=== PATIENT | male | born 1930 | race African-American/Black ===

== ENCOUNTER 2016-09-25 19:44 | Inpatient (IN) | payer MEDICARE ==
[~2016-09-25] VITALS: Ht 175.3 cm; Wt 91.1 kg
[~2016-09-25 19:44] MED LIST: AMLO10TA2 PO; ASPI1TAB PO; FURO20TA2 PO; LASI40TA PO; LEVA750T PO; LISI40TAB PO; METO-209 PO; METO25TA74 PO; OMEP20CA3 PO; TRAV04OPD OU; VITMTA PO; XARE20TA PO
[2016-09-25 20:59] LABS: VENOUS BASE EXCESS -1.7 (-2.0-2.0); VENOUS O2 SATURATION 77.1 % (60.0-80.0); VENOUS PARTIAL PRESSURE CO2 46.9 mmHg (38.0-50.0); VENOUS PARTIAL PRESSURE O2 46.1 mmHg (30.0-50.0); VENOUS STANDARD HCO3 22.7 MEQ/L; VENOUS TOTAL CO2 25.8 MEQ/L (24.0-28.0)
[2016-09-25 21:03] LABS: BASO # 0.1 K/mm3 (0.0-0.2); BASO % 0.5 % (0.0-1.0); EOS # 0.1 K/mm3 (0.0-0.50); EOS % 0.2 % (0.0-3.0); LARGE UNSTAINED CELL # 0.3 K/mm3 (0.0-0.4); LARGE UNSTAINED CELL % 1.2 % (0.0-4.0); LYMPH # 0.4 K/mm3 (1.5-4.5); LYMPH % 1.4 % (24.0-44.0); MEAN CORPUSCULAR HEMOGLOBIN 30.7 pg (27.0-33.0); MEAN CORPUSCULAR HGB CONC 32.6 g/dl (32.0-36.5); MEAN CORPUSCULAR VOLUME 94.2 fl (80.0-96.0); MONO % 3.8 % (0.0-5.0); NEUTROPHILS # 25.4 K/mm3 (1.8-7.7); PLATELET COUNT, AUTOMATED 181 k/mm3 (150-450); RED CELL DISTRIBUTION WIDTH 14.4 % (11.5-14.5); WHITE BLOOD COUNT 27.3 K/mm3 (4.0-10.0)
[2016-09-25 22:07] LABS: ALBUMIN 2.9 GM/DL (3.2-5.2); ALBUMIN/GLOBULIN RATIO 0.83 (1.00-1.93); BILIRUBIN,DIRECT 0.7 MG/DL (0.0-0.2); BILIRUBIN,TOTAL 1.9 MG/DL (0.2-1.0); CALCIUM LEVEL 8.4 MG/DL (8.8-10.2); CREATININE FOR GFR 3.78 MG/DL (0.70-1.30); GLOMERULAR FILTRATION RATE 19.8 (>35); POTASSIUM SERUM 4.1 MEQ/L (3.5-5.1); TOTAL PROTEIN 6.4 GM/DL (6.4-8.2)
[2016-09-25] MEDS ORDERED: CIPROFLOXACIN/D5W 400 MG/200 ML BAG (J0744) As Ordered ONE (22:34)
[2016-09-25] MEDS ORDERED: metroNIDAZOLE/NACL 500MG(5MG/ML)100 ML BAG (S0030) As Ordered ONE (22:34)
[2016-09-25] MEDS ORDERED: FURO40TA2 PO (23:01)
[2016-09-25] MEDS ORDERED: ACET-654 PO (23:02)
[2016-09-25] MEDS ORDERED: IBUPOTC PO (23:09)
[2016-09-25] MEDS ORDERED: VITMTA PO (23:09)
[2016-09-25] MEDS ORDERED: CIPROFLOXACIN 200 MG in APPROPRIATE DILUENT 1 EA IV ONE (23:15)
[2016-09-26] VITALS (31 sets, daily range): BP systolic 77–132; BP diastolic 40–87
--- NOTE | 2016-09-26 01:05 | EDDOCDS ---
Physician Documentation [facility] Name: Les Navarro Age: 85 yrs Sex: Male : 1930 Arrival Date: 09/25/2016 Time: 19:44 Bed 1 Private MD: Bhakti Mccloud., DO Disposition: 09/25/16 22:47 Hospitalization ordered by Thai Hunt for Inpatient Admission. Preliminary diagnosis are Acute kidney failure, Hypotension, Diarrhea, unspecified - Suspect C.Diff. - Bed requested for ICU. - Status is Inpatient Admission. js15 - Condition is Stable. - Problem is an acute exacerbation. - Symptoms have improved. Historical: - Allergies: Red Dye; - Home Meds: 1. aspirin 81 mg Oral tab 1 tab once daily 2. amlodipine 10 mg Oral tab 5 mg once daily 3. lisinopril 40 mg Oral tab 1 tab once daily 4. metoprolol succinate 100 mg Tb24 1 tab once daily 5. metoprolol succinate 25 mg Tb24 1 tab once daily 6. omeprazole 20 mg Oral cpDR 1 cap once daily 7. acetaminophen 325 mg Oral tab 8. travoprost 0.004 % ophthalmic drop 1 drop nightly - PMHx: Hypertension; prostate cancer; GERD; - PSHx: Hernia repair; Knee Arthroplasty, Left; Knee Arthroplasty, Right; Prostatectomy; - Social history: Smoking status: Patient states was never smoker of tobacco. No barriers to communication noted, The patient speaks fluent Martiniquais, Speaks appropriately for age. - Family history: Not pertinent. - : The pt / caregiver states he / she is not on anticoagulants. Home medication list is obtained from family members. - Exposure Risk Screening:: None identified. Vital Signs: 09/25 19:48 BP 69 / 48; Pulse 102; Resp 18 S; Temp 95.4(T); Pulse Ox 95% on R/A; Weight 86.18 kg / gr2 189.99 lbs (R); Height 5 ft. 9 in. (175.26 cm) (R); Pain 2/10; 20:02 BP 81 / 47 (auto/); js15 20:03 Pulse 136 MON; js15 20:08 BP 90 / 49 (auto/); js15 20:08 Pulse 120 MON; js15 20:19 BP 104 / 53 (auto/); js15 20:25 Pulse 114 MON; Pulse Ox 94% ; js15 20:45 BP 87 / 54 (auto/); js15 20:45 Pulse 114 MON; Pulse Ox 95% ; js15 20:55 BP 106 / 55 (auto/); js15 20:55 Pulse 138 MON; Pulse Ox 94% ; js15 21:01 BP 87 / 54 (auto/); js15 21:01 Pulse 104 MON; Pulse Ox 88% ; js15 21:06 BP 89 / 52 (auto/); js15 21:06 Pulse 104 MON; Pulse Ox 97% ; js15 21:11 BP 94 / 52 (auto/); js15 21:11 Pulse 103 MON; Pulse Ox 90% ; js15 21:16 BP 103 / 57 (auto/); js15 21:16 Pulse 106 MON; Pulse Ox 94% ; js15 21:21 BP 108 / 56 (auto/); js15 21:21 Pulse 105 MON; Pulse Ox 97% ; js15 21:25 Pulse 112 MON; Pulse Ox 91% ; js15 21:26 BP 75 / 46 (auto/); js15 21:31 BP 87 / 52 (auto/); js15 21:31 Pulse 111 MON; Pulse Ox 98% ; js15 21:35 Pulse 107 MON; Pulse Ox 95% ; js15 21:36 BP 93 / 54 (auto/); js15 21:40 Pulse 105 MON; Pulse Ox 94% ; js15 21:41 BP 68 / 35 (auto/); js15 21:45 BP 89 / 51 (auto/); js15 21:45 Pulse 104 MON; Pulse Ox 92% ; js15 21:46 BP 101 / 60 (auto/); js15 21:46 Pulse 106 MON; Pulse Ox 92% ; js15 21:51 BP 108 / 53 (auto/); js15 21:51 Pulse 104 MON; Pulse Ox 94% ; js15 21:56 BP 114 / 58 (auto/); js15 21:56 Pulse 108 MON; Pulse Ox 96% ; js15 22:05 Pulse 104 MON; Pulse Ox 90% ; js15 22:06 BP 101 / 54 (auto/); js15 22:11 BP 106 / 56 (auto/); js15 22:11 Pulse 105 MON; Pulse Ox 90% ; js15 22:16 BP 99 / 51 (auto/); js15 22:16 Pulse 105 MON; Pulse Ox 88% ; js15 22:21 BP 91 / 53 (auto/); js15 22:21 Pulse 103 MON; Pulse Ox 96% ; js15 22:25 Pulse 103 MON; Pulse Ox 90% ; js15 22:26 BP 113 / 55 (auto/); js15 22:31 BP 92 / 53 (auto/); js15 22:31 Pulse 103 MON; Pulse Ox 69% ; js15 22:38 BP 106 / 59 (auto/); js15 22:39 Pulse 109 MON; Pulse Ox 95% ; js15 22:41 BP 115 / 58 (auto/); js15 22:41 Pulse 111 MON; Pulse Ox 94% ; js15 22:46 BP 106 / 55 (auto/); js15 22:46 Pulse 116 MON; Pulse Ox 93% ; js15 22:51 BP 119 / 68 (auto/); js15 22:51 Pulse 108 MON; Pulse Ox 95% ; js15 22:56 BP 109 / 58 (auto/); js15 22:56 Pulse 109 MON; Pulse Ox 95% ; js15 23:01 BP 108 / 55 (auto/); js15 23:01 Pulse 105 MON; Pulse Ox 95% ; js15 23:06 BP 114 / 55 (auto/); js15 23:06 Pulse 107 MON; Pulse Ox 94% ; js15 23:11 BP 106 / 55 (auto/); js15 23:11 Pulse 107 MON; Pulse Ox 96% ; js15 23:23 BP 165 / 84 (auto/); js15 23:23 Pulse 129 MON; Pulse Ox 59% ; js15 23:28 BP 154 / 74 (auto/); js15 23:28 Pulse 128 MON; Pulse Ox 84% ; js15 23:33 BP 133 / 59 (auto/); js15 23:33 Pulse 127 MON; Pulse Ox 91% ; js15 23:38 BP 91 / 56 (auto/); js15 23:38 Pulse 117 MON; Pulse Ox 90% ; js15 23:42 Pulse 117 MON; Pulse Ox 91% ; js15 23:43 BP 105 / 54 (auto/); js15 23:48 BP 97 / 52 (auto/); js15 23:48 Pulse 113 MON; Pulse Ox 92% ; js15 23:53 BP 95 / 55 (auto/); 23:53 Pulse 114 MON; Pulse Ox 93% ; 23:58 BP 91 / 53 (auto/); 23:58 Pulse 111 MON; Pulse Ox 93% ; 09/26 00:02 Pulse 114 MON; Pulse Ox 94% ; 00:03 BP 118 / 56 (auto/); 00:08 BP 94 / 51 (auto/); 00:08 Pulse 96 MON; Pulse Ox 93% ; 00:13 BP 97 / 52 (auto/); 00:13 Pulse 92 MON; Pulse Ox 93% ; 00:18 BP 105 / 55 (auto/); 00:18 Pulse 92 MON; Pulse Ox 93% ; 00:23 BP 98 / 51 (auto/); 00:23 Pulse 93 MON; Pulse Ox 94% ; 00:28 BP 96 / 50 (auto/); 00:28 Pulse 93 MON; Pulse Ox 93% ; 00:33 BP 105 / 55 (auto/); 00:33 Pulse 91 MON; Pulse Ox 93% ; 00:38 BP 98 / 51 (auto/); 00:38 Pulse 94 MON; Pulse Ox 94% ; 00:43 Temp 97.3; 00:43 BP 103 / 56 (auto/); 00:43 Pulse 92 MON; Pulse Ox 94% ; 00:48 BP 97 / 55 (auto/); 00:48 Pulse 93 MON; Pulse Ox 96% ; 00:53 BP 92 / 55 (auto/); 00:53 Pulse 91 MON; Pulse Ox 94% ; 00:58 BP 92 / 55 (auto/); 00:59 Pulse 92 MON; Pulse Ox 93% ; 09/25 19:48 Body Mass Index 28.06 (86.18 kg, 175.26 cm) gr2 MDM: 09/25 20:04 ECG WITH READING ER PHYS+CARDIAG ordered. EDMS 20:21 NS 0.9% 1000 ml IV at bolus once ordered. js15 20:24 NS 0.9% 1000 ml IV at bolus once ordered. mm11 20:24 -Blood Culture (Adults Only), peripheral from different site, or from device/port/PICC mm11 etc. if present ordered. 20:24 IV Saline Lock ordered. mm11 20:24 Undress patient appropriately for examination ordered. mm11 20:25 Amylase Ordered. EDMS 20:25 Basic Metabolic Profile Ordered. EDMS 20:25 CBC with Diff Ordered. EDMS 20:25 Cardiac Injury Profile Ordered. EDMS 20:25 Lipase Ordered. EDMS 20:25 Liver Profile Ordered. EDMS 20:25 Troponin Ordered. EDMS 20:25 Venous Blood Gas (large pea green tube on ice) Ordered. EDMS 20:25 Lactic Acid (Tineo tube on ice) Ordered. EDMS 20:25 -Blood Culture Ordered. EDMS 20:25 C Diff Toxins A&b Ordered. EDMS 20:25 Chest, 1 View Ordered. EDMS 20:25 NOTHING BY MOUTH+DIET ordered. EDMS 20:28 -Blood Culture (Adults Only), peripheral from different site, or from device/port/PICC ml3 etc. if present complete. 20:31 BLOOD CULTURES Ordered. EDMS 21:17 CBC with Diff Reviewed. mm11 21:17 Venous Blood Gas (large pea green tube on ice) Reviewed. mm11 22:00 Financial registration complete. gjb 22:22 Basic Metabolic Profile Reviewed. mm11 22:22 Cardiac Injury Profile Reviewed. mm11 22:22 Lipase Reviewed. mm11 22:22 Liver Profile Reviewed. mm11 22:22 Lactic Acid (Tineo tube on ice) Reviewed. mm11 22:22 Amylase Reviewed. mm11 22:22 Troponin Reviewed. mm11 22:24 CT ABD & PELVIS: No Contrast Ordered. EDMS 22:29 LR Solution 1000 ml IV at bolus once ordered. mm11 22:30 Ciprofloxacin 200 mg IVPB once over 1 hrs ordered. mm11 22:30 metroNIDAZOLE 500 mg IV at 100 mL/hr once over 60 mins ordered. mm11 22:30 BED REQUEST+ADM ordered. EDMS 23:12 [facility] [place] was scanned into apprupt and attached to record. [email or web address] 23:23 CBC WITH DIFFERENTIAL Ordered. EDMS 23:48 LR Solution 1000 ml IV at 250 mL/hr once ordered. mm11 09/26 00:06 Admission / Observation Status ordered. EDMS 00:10 LACTIC ACID LEVEL, LACTATE Ordered. EDMS 00:43 COMPLETE COMPHRENSIVE METABOLI Ordered. EDMS Administered Medications: 09/25 20:22 Drug: NS 0.9% 1000 ml [sodium chloride 0.9 % intravenous solution] Route: IV; Rate: js15 bolus; Site: right antecubital; 21:25 Follow up: IV Status: Completed infusion; IV Intake: 1000ml js15 21:35 Drug: NS 0.9% 1000 ml [sodium chloride 0.9 % intravenous solution] Route: IV; Rate: js15 bolus; Site: right antecubital; 22:30 Follow up: IV Status: Completed infusion; IV Intake: 1000ml js15 22:40 Drug: LR 1000 ml [lactated ringers intravenous solution] Route: IV; Rate: bolus; Site: js15 left hand; 23:30 Follow up: IV Status: Completed infusion; IV Intake: 1000ml js15 22:58 Drug: metroNIDAZOLE 500 mg [metronidazole 500 mg/100 mL-sodium chloride(iso) [facility] intravenous piggyback] Route: IV; Rate: 100 mL/hr; Infused Over: 60 mins; Site: right antecubital; 09/26 00:00 Follow up: IV Status: Completed infusion js15 00:00 Drug: LR 1000 ml [lactated ringers intravenous solution] Route: IV; Rate: 250 mL/hr; js15 Site: left hand; 01:01 Follow up: IV Status: Infusion continued upon admit js15 00:06 Not Given (Discretion of hospitalist Dr. Peralta): Ciprofloxacin 200 mg IVPB once over js15 1 hrs Signatures: Dispatcher [employer] No Self RN RN Tarik Markham, [employer] ml3 Laci Guan, DO mm11 Anny Mayorga RN RN [email or web address] Angie Ricci RN RN js15 Ruth Conte Kimberly, Reg Reg [email or web address] Eufemia Recinos RN [facility] The chart was reviewed and I authenticate all verbal orders and agree with the evaluation and treatment provided.Corrections: (The following items were deleted from the chart) 00:43 09/25 23:23 RENAL PROFILE ordered. EDWI EDMS Attachments: 23:12 [facility] Payment Agreement [email or web address] MTDD
--- NOTE | 2016-09-26 01:05 | EDDOCDS ---
Nurse's Notes [facility] Name: Les Navarro Age: 85 yrs Sex: Male : 1930 Arrival Date: 09/25/2016 Time: 19:44 Bed 1 Private MD: Bhakti Mccloud., DO Diagnosis: Acute kidney failure;Hypotension;Diarrhea, unspecified-Suspect C.Diff Presentation: 09/25 20:02 Presenting complaint: Patient states: Diarrhea times 6 days unable to eat or drink, pt sls1 is able to answer questions but unable to follow commands brought directly to bed, placed in trendelenburg. Adult Sepsis Screening: Patient has new or worsening altered mentation (1 point). Patient's respiratory rate is less than 22. Systolic blood pressure is less than or equal to 100 (1 point). Patient has a qSOFA score of 2. No known or suspected infection- Negative Sepsis Screen. Suicide/Homicide risk assessment- the patient denies having any suicidal and/or homicidal ideations and does not present with any other emotional, behavioral or mental health complaints. Status: Patient is not a body service team member or dependent. Transition of care: patient was not received from another setting of care. Red Flag criteria, patient assessed and taken directly to a bed. 20:02 Acuity: NELIDA Level 2 sls1 20:02 Method Of Arrival: Walkin/Carried/Asstd sls1 Triage Assessment: 20:15 General: Appears in no apparent distress, Behavior is appropriate for age, cooperative. js15 Pain: Denies pain. The patient is triaged at the bedside. See Assessment in Nurses Notes section of ED record. Neurological: Level of Consciousness is awake, alert, obeys commands, Oriented to person, place, time. Cardiovascular: Capillary refill < 3 seconds Rhythm is atrial fibrillation with rapid ventricular response. Respiratory: Airway is patent Respiratory effort is even, unlabored, Respiratory pattern is regular, symmetrical. GI: Reports diarrhea. Derm: Skin is intact, Skin is dry, Skin temperature is cool. Historical: - Allergies: Red Dye; - Home Meds: 1. aspirin 81 mg Oral tab 1 tab once daily 2. amlodipine 10 mg Oral tab 5 mg once daily 3. lisinopril 40 mg Oral tab 1 tab once daily 4. metoprolol succinate 100 mg Tb24 1 tab once daily 5. metoprolol succinate 25 mg Tb24 1 tab once daily 6. omeprazole 20 mg Oral cpDR 1 cap once daily 7. acetaminophen 325 mg Oral tab 8. travoprost 0.004 % ophthalmic drop 1 drop nightly - PMHx: Hypertension; prostate cancer; GERD; - PSHx: Hernia repair; Knee Arthroplasty, Left; Knee Arthroplasty, Right; Prostatectomy; - Social history: Smoking status: Patient states was never smoker of tobacco. No barriers to communication noted, The patient speaks fluent Slovak, Speaks appropriately for age. - Family history: Not pertinent. - : The pt / caregiver states he / she is not on anticoagulants. Home medication list is obtained from family members. - Exposure Risk Screening:: None identified. Screenin:24 Screening information is obtained from the patient, family members. Fall risk: At risk js15 due to age, The following interventions are performed due to a positive Fall Risk Screen: side rails upx2, bed in low position, call light in reach, family at bedside, placed in front of nurses station. Assistance ADL's: requires no assistance with activities of daily living. Abuse/DV Screen: The patient / caregiver reports he/she is: not in a situation that causes fear, pain or injury. Nutritional screening: No deficits noted. Advance Directives: Currently, there is a health care proxy, Significant other- Ann-Marie Vasquez. There is an active DNR order but there is no copy available at this time. home support is adequate. Assessment: 20:23 General: see triage note. Cardiovascular: Heart tones S1 S2 present Chest pain is js15 denied. Respiratory: Breath sounds are clear bilaterally. GI: Abdomen is non- distended Bowel sounds present X 4 quads. Abd is soft and non tender X 4 quads. 21:00 Reassessment: Patient appears in no apparent distress at this time. Pt resting on js15 stretcher in Trendelenburg , denies dizziness or pain; respirations even and unlabored; skin warm, dry. 22:00 Reassessment: Patient appears in no apparent distress at this time. Pt resting on js15 stretcher with eyes closed, respirations even and unlabored; skin warm, dry; will continue to monitor. 22:14 General: call received from Harsha in Lab reporting critical value Lactic acid 2.9. [facility] Reported to Provider and assigned nurse. 23:09 General: Appears in no apparent distress, to be sleeping. Neurological:. Respiratory: js15 Airway is patent Respiratory effort is even, unlabored, Respiratory pattern is regular, symmetrical. Derm: Skin is intact, Skin is normal. 09/26 00:14 Reassessment: Patient appears in no apparent distress at this time. Neurological: Level js15 of Consciousness is awake, alert, obeys commands, Oriented to person, place, time. Cardiovascular: Rhythm is atrial fibrillation. Respiratory: Airway is patent Respiratory effort is even, unlabored, Respiratory pattern is regular, symmetrical. Derm: Skin is intact, Skin is normal. Vital Signs: 09/25 19:48 BP 69 / 48; Pulse 102; Resp 18 S; Temp 95.4(T); Pulse Ox 95% on R/A; Weight 86.18 kg gr2 (R); Height 5 ft. 9 in. (175.26 cm) (R); Pain 10/19; 20:02 BP 81 / 47 (auto/); js15 20:03 Pulse 136 MON; js15 20:08 BP 90 / 49 (auto/); js15 20:08 Pulse 120 MON; js15 20:19 BP 104 / 53 (auto/); js15 20:25 Pulse 114 MON; Pulse Ox 94% ; js15 20:45 BP 87 / 54 (auto/); js15 20:45 Pulse 114 MON; Pulse Ox 95% ; js15 20:55 BP 106 / 55 (auto/); js15 20:55 Pulse 138 MON; Pulse Ox 94% ; js15 21:01 BP 87 / 54 (auto/); js15 21:01 Pulse 104 MON; Pulse Ox 88% ; js15 21:06 BP 89 / 52 (auto/); js15 21:06 Pulse 104 MON; Pulse Ox 97% ; js15 21:11 BP 94 / 52 (auto/); js15 21:11 Pulse 103 MON; Pulse Ox 90% ; js15 21:16 BP 103 / 57 (auto/); js15 21:16 Pulse 106 MON; Pulse Ox 94% ; js15 21:21 BP 108 / 56 (auto/); js15 21:21 Pulse 105 MON; Pulse Ox 97% ; js15 21:25 Pulse 112 MON; Pulse Ox 91% ; js15 21:26 BP 75 / 46 (auto/); js15 21:31 BP 87 / 52 (auto/); js15 21:31 Pulse 111 MON; Pulse Ox 98% ; js15 21:35 Pulse 107 MON; Pulse Ox 95% ; js15 21:36 BP 93 / 54 (auto/); js15 21:40 Pulse 105 MON; Pulse Ox 94% ; js15 21:41 BP 68 / 35 (auto/); js15 21:45 BP 89 / 51 (auto/); js15 21:45 Pulse 104 MON; Pulse Ox 92% ; js15 21:46 BP 101 / 60 (auto/); js15 21:46 Pulse 106 MON; Pulse Ox 92% ; js15 21:51 BP 108 / 53 (auto/); js15 21:51 Pulse 104 MON; Pulse Ox 94% ; js15 21:56 BP 114 / 58 (auto/); js15 21:56 Pulse 108 MON; Pulse Ox 96% ; js15 22:05 Pulse 104 MON; Pulse Ox 90% ; js15 22:06 BP 101 / 54 (auto/); js15 22:11 BP 106 / 56 (auto/); js15 22:11 Pulse 105 MON; Pulse Ox 90% ; js15 22:16 BP 99 / 51 (auto/); js15 22:16 Pulse 105 MON; Pulse Ox 88% ; js15 22:21 BP 91 / 53 (auto/); js15 22:21 Pulse 103 MON; Pulse Ox 96% ; js15 22:25 Pulse 103 MON; Pulse Ox 90% ; js15 22:26 BP 113 / 55 (auto/); js15 22:31 BP 92 / 53 (auto/); js15 22:31 Pulse 103 MON; Pulse Ox 69% ; js15 22:38 BP 106 / 59 (auto/); js15 22:39 Pulse 109 MON; Pulse Ox 95% ; js15 22:41 BP 115 / 58 (auto/); js15 22:41 Pulse 111 MON; Pulse Ox 94% ; js15 22:46 BP 106 / 55 (auto/); js15 22:46 Pulse 116 MON; Pulse Ox 93% ; js15 22:51 BP 119 / 68 (auto/); js15 22:51 Pulse 108 MON; Pulse Ox 95% ; js15 22:56 BP 109 / 58 (auto/); js15 22:56 Pulse 109 MON; Pulse Ox 95% ; js15 23:01 BP 108 / 55 (auto/); 15 23:01 Pulse 105 MON; Pulse Ox 95% ; js15 23:06 BP 114 / 55 (auto/); 15 23:06 Pulse 107 MON; Pulse Ox 94% ; js15 23:11 BP 106 / 55 (auto/); js15 23:11 Pulse 107 MON; Pulse Ox 96% ; js15 23:23 BP 165 / 84 (auto/); js15 23:23 Pulse 129 MON; Pulse Ox 59% ; js15 23:28 BP 154 / 74 (auto/); 15 23:28 Pulse 128 MON; Pulse Ox 84% ; js15 23:33 BP 133 / 59 (auto/); 15 23:33 Pulse 127 MON; Pulse Ox 91% ; 15 23:38 BP 91 / 56 (auto/); 15 23:38 Pulse 117 MON; Pulse Ox 90% ; 15 23:42 Pulse 117 MON; Pulse Ox 91% ; 15 23:43 BP 105 / 54 (auto/); 15 23:48 BP 97 / 52 (auto/); 15 23:48 Pulse 113 MON; Pulse Ox 92% ; 15 23:53 BP 95 / 55 (auto/); 15 23:53 Pulse 114 MON; Pulse Ox 93% ; 15 23:58 BP 91 / 53 (auto/); 15 23:58 Pulse 111 MON; Pulse Ox 93% ; 09/26 00:02 Pulse 114 MON; Pulse Ox 94% ; 15 00:03 BP 118 / 56 (auto/); 15 00:08 BP 94 / 51 (auto/); 00:08 Pulse 96 MON; Pulse Ox 93% ; 15 00:13 BP 97 / 52 (auto/); 00:13 Pulse 92 MON; Pulse Ox 93% ; 15 00:18 BP 105 / 55 (auto/); 15 00:18 Pulse 92 MON; Pulse Ox 93% ; 00:23 BP 98 / 51 (auto/); 15 00:23 Pulse 93 MON; Pulse Ox 94% ; 15 00:28 BP 96 / 50 (auto/); 15 00:28 Pulse 93 MON; Pulse Ox 93% ; 15 00:33 BP 105 / 55 (auto/); 15 00:33 Pulse 91 MON; Pulse Ox 93% ; js15 00:38 BP 98 / 51 (auto/); js15 00:38 Pulse 94 MON; Pulse Ox 94% ; js15 00:43 Temp 97.3; js15 00:43 BP 103 / 56 (auto/); js15 00:43 Pulse 92 MON; Pulse Ox 94% ; js15 00:48 BP 97 / 55 (auto/); js15 00:48 Pulse 93 MON; Pulse Ox 96% ; js15 00:53 BP 92 / 55 (auto/); js15 00:53 Pulse 91 MON; Pulse Ox 94% ; js15 00:58 BP 92 / 55 (auto/); js15 00:59 Pulse 92 MON; Pulse Ox 93% ; js15 09/25 19:48 Body Mass Index 28.06 (86.18 kg, 175.26 cm) gr2 Vitals: 09/25 19:48 Log In Time: September 25, 2016 at 19:48. RN notified that patient meets Red Flag gr2 criteria. ED Course: 19:47 Patient visited by Abimael Boucher. gr2 19:47 Bhakti Mccloud. is Private Physician. gr2 19:47 Patient moved to Waiting gr2 19:54 Patient visited by Abimael Boucher. gr2 19:54 Patient moved to 6 mb9 19:54 Patient moved to Pre RCE gr2 19:54 Patient moved to 6 mb9 19:55 Patient visited by Abimael Boucher. gr2 20:03 Triage Initiated sls1 20:08 Patient moved to Sep 20:09 Patient visited by Michelle Wagner PCA. ar3 20:09 EKG done. (by ED staff). Reviewed by Laci Guan DO. ar3 20:14 Laci Guan DO is Attending Physician. mm11 20:14 Patient visited by Laci Guan DO. mm11 20:23 Patient visited by Laci Guan DO. mm11 20:26 The patient / caregiver is instructed regarding the plan of care and ED course. js15 Accompanied by Significant Other, Patient has correct armband on for positive identification. Placed in gown. Bed in low position. Call light in reach. Side rails up X2. Adult w/ patient. monitor technician on. Pulse ox on. NIBP on. Warm blanket given. 20:27 Inserted saline lock: 18 gauge in right antecubital area The patient tolerated the js15 procedure well. inserted by A Sarah LINDSEY. 20:31 Lactic Acid (Tieno tube on ice) Sent. js15 20:31 Amylase Sent. js15 20:31 Basic Metabolic Profile Sent. js15 20:31 CBC with Diff Sent. js15 20:31 Cardiac Injury Profile Sent. js15 20:31 Lipase Sent. js15 20:31 Liver Profile Sent. js15 20:31 Troponin Sent. js15 20:44 BLOOD CULTURES Sent. js15 20:44 Venous Blood Gas (large pea green tube on ice) Sent. js15 20:44 -Blood Culture Sent. js15 21:27 Patient visited by Tina Beatty PCA. williams 22:27 Patient visited by Angie Ricci RN. js15 22:35 Inserted saline lock: 20 gauge in left hand The patient tolerated the procedure well. js15 22:46 Thai Hunt MD is Hospitalizing Provider. mm 23:12 [facility] Payment Agreement was scanned into [employer] and attached to record. ks16 09/26 00:15 CT ABD & PELVIS: No Contrast Returned. EDMS 00:37 No procedures done that require assistance. js15 Administered Medications: 09/25 20:22 Drug: NS 0.9% 1000 ml [sodium chloride 0.9 % intravenous solution] Route: IV; Rate: js15 bolus; Site: right antecubital; 21:25 Follow up: IV Status: Completed infusion; IV Intake: 1000ml js15 21:35 Drug: NS 0.9% 1000 ml [sodium chloride 0.9 % intravenous solution] Route: IV; Rate: js15 bolus; Site: right antecubital; 22:30 Follow up: IV Status: Completed infusion; IV Intake: 1000ml js15 22:40 Drug: LR 1000 ml [lactated ringers intravenous solution] Route: IV; Rate: bolus; Site: js15 left hand; 23:30 Follow up: IV Status: Completed infusion; IV Intake: 1000ml js15 22:58 Drug: metroNIDAZOLE 500 mg [metronidazole 500 mg/100 mL-sodium chloride(iso) cjh intravenous piggyback] Route: IV; Rate: 100 mL/hr; Infused Over: 60 mins; Site: right antecubital; 09/26 00:00 Follow up: IV Status: Completed infusion 00:00 Drug: LR 1000 ml [lactated ringers intravenous solution] Route: IV; Rate: 250 mL/hr; Site: left hand; 01:01 Follow up: IV Status: Infusion continued upon admit 00:06 Not Given (Discretion of hospitalist Dr. Peralta): Ciprofloxacin 200 mg IVPB once over 1 hrs Intake: 09/25 21:25 IV: 1000.00ml; Total: 1000.00ml. 22:30 IV: 1000.00ml; Total: 2000.00ml. 23:30 IV: 1000.00ml; Total: 3000.00ml. Order Results: Lab Order: Amylase; SPEC'M 09/25/16 20:39 Test: AMYLASE; Value: 45; Range: 25-115; Units: U/L; Status: F Lab Order: Basic Metabolic Profile; SPEC'M 09/25/16 20:39 Test: GLUCOSE, FASTING; Value: 135; Range: 83-110; Abnormal: Above high normal; Units: MG/DL; Status: F Test: BLOOD UREA NITROGEN; Value: 49; Range: 7-18; Abnormal: Above high normal; Units: MG/DL; Status: F Test: CREATININE FOR GFR; Value: 3.78; Range: 0.70-1.30; Abnormal: Above high normal; Units: MG/DL; Status: F Test: GLOMERULAR FILTRATION RATE; Value: 19.8; Range: >35; Abnormal: Below low normal; Status: F Test: SODIUM LEVEL; Value: 144; Range: 136-145; Units: MEQ/L; Status: F Test: POTASSIUM SERUM; Value: 4.1; Range: 3.5-5.1; Units: MEQ/L; Status: F Test: CHLORIDE LEVEL; Value: 105; Range: 98-107; Units: MEQ/L; Status: F Test: CARBON DIOXIDE LEVEL; Value: 24; Range: 21-32; Units: MEQ/L; Status: F Test: ANION GAP; Value: 15; Range: 8-16; Units: MEQ/L; Status: F Test: CALCIUM LEVEL; Value: 8.4; Range: 8.8-10.2; Abnormal: Below low normal; Units: MG/DL; Status: F Test Note: ; Units are mL/min/1.73 m2 Chronic Kidney Disease Staging per NKF: Stage I & II GFR >=60 Normal to Mildly Decreased Stage III GFR 30-59 Moderately Decreased Stage IV GFR 15-29 Severely Decreased Stage V GFR <15 Very Little GFR Left ESRD GFR <15 on ROUGHER OPERATOR Lab Order: CBC with Diff; [facility] 09/25/16 20:39 Test: WHITE BLOOD COUNT; Value: 27.3; Range: 4.0-10.0; Abnormal: Above high normal; Units: K/mm3; Status: F Test: RED BLOOD COUNT; Value: 3.37; Range: 4.30-6.10; Abnormal: Below low normal; Units: M/mm3; Status: F Test: HEMOGLOBIN; Value: 10.4; Range: 14.0-18.0; Abnormal: Below low normal; Units: g/dl; Status: F Test: HEMATOCRIT; Value: 31.8; Range: 42.0-52.0; Abnormal: Below low normal; Units: %; Status: F Test: MEAN CORPUSCULAR VOLUME; Value: 94.2; Range: 80.0-96.0; Units: fl; Status: F Test: MEAN CORPUSCULAR HEMOGLOBIN; Value: 30.7; Range: 27.0-33.0; Units: pg; Status: F Test: MEAN CORPUSCULAR HGB CONC; Value: 32.6; Range: 32.0-36.5; Units: g/dl; Status: F Test: RED CELL DISTRIBUTION WIDTH; Value: 14.4; Range: 11.5-14.5; Units: %; Status: F Test: PLATELET COUNT, AUTOMATED; Value: 181; Range: 150-450; Units: k/mm3; Status: F Test: NEUTROPHILS %; Value: 93.0; Range: 36.0-66.0; Abnormal: Above high normal; Units: %; Status: F Test: LYMPH %; Value: 1.4; Range: 24.0-44.0; Abnormal: Below low normal; Units: %; Status: F Test: MONO %; Value: 3.8; Range: 0.0-5.0; Units: %; Status: F Test: EOS %; Value: 0.2; Range: 0.0-3.0; Units: %; Status: F Test: BASO %; Value: 0.5; Range: 0.0-1.0; Units: %; Status: F Test: LARGE UNSTAINED CELL %; Value: 1.2; Range: 0.0-4.0; Units: %; Status: F Test: NEUTROPHILS #; Value: 25.4; Range: 1.8-7.7; Abnormal: Above high normal; Units: K/mm3; Status: F Test: LYMPH #; Value: 0.4; Range: 1.5-4.5; Abnormal: Below low normal; Units: K/mm3; Status: F Test: MONO #; Value: 1.0; Range: 0.0-0.8; Abnormal: Above high normal; Units: K/mm3; Status: F Test: EOS #; Value: 0.1; Range: 0.0-0.50; Units: K/mm3; Status: F Test: BASO #; Value: 0.1; Range: 0.0-0.2; Units: K/mm3; Status: F Test: LARGE UNSTAINED CELL #; Value: 0.3; Range: 0.0-0.4; Units: K/mm3; Status: F Lab Order: Cardiac Injury Profile; [facility] 09/25/16 20:39 Test: CPK CREATINE PHOSPHOKINASE; Value: 227; Range: 39-308; Units: U/L; Status: F Test: CK-MB VALUE MASS; Value: 8.8; Range: 0.0-3.6; Abnormal: Above high normal; Units: NG/ML; Status: F Test: MB/CK RELATIVE INDEX; Value: 3.87; Range: < OR =4; Status: F Test Note: ; DIAGNOSIS CRITERIA MMB ng/ml Relative Index (RI) NON-AMI < or = 5 N/A TINEO ZONE > 5 < or = 4 AMI > 5 > 4 Lab Order: Lipase; [facility] 09/25/16 20:39 Test: LIPASE; Value: 49; Range: 73-393; Abnormal: Below low normal; Units: U/L; Status: F Lab Order: Liver Profile; [facility] 09/25/16 20:39 Test: AST/SGOT; Value: 49; Range: 15-37; Abnormal: Above high normal; Units: U/L; Status: F Test: ALT/SGPT; Value: 35; Range: 12-78; Units: U/L; Status: F Test: ALKALINE PHOSPHATASE; Value: 119; Range: 45-117; Abnormal: Above high normal; Units: U/L; Status: F Test: BILIRUBIN,TOTAL; Value: 1.9; Range: 0.2-1.0; Abnormal: Above high normal; Units: MG/DL; Status: F Test: BILIRUBIN,DIRECT; Value: 0.7; Range: 0.0-0.2; Abnormal: Above high normal; Units: MG/DL; Status: F Test: TOTAL PROTEIN; Value: 6.4; Range: 6.4-8.2; Units: GM/DL; Status: F Test: ALBUMIN; Value: 2.9; Range: 3.2-5.2; Abnormal: Below low normal; Units: GM/DL; Status: F Test: ALBUMIN/GLOBULIN RATIO; Value: 0.83; Range: 1.00-1.93; Abnormal: Below low normal; Status: F Lab Order: Troponin; SPEC'M 09/25/16 20:39 Test: TROPONIN I; Value: 0.05; Range: < 0.10; Units: NG/ML; Status: F Test Note: ; Troponin I Reference Interval for Lexdir LOCI: 99th Percentile= 0.00-0.045 ng/ml Risk Stratification: <= 0.10 ng/ml Decreased Risk for Adverse Clinical Events. 0.10-1.50 ng/ml Increased Risk for Adverse Clinical Events. Evaluation of additional criterion and/or repeat testing in 2-6 hours is suggested to rule out myocardial damage. >= 1.50 ng/ml Indicative of Myocardial Injury. Lab Order: Venous Blood Gas (large pea green tube on ice); SPEC'M 09/25/16 20:39 Test: VENOUS PH; Value: 7.333; Range: 7.330-7.430; Units: UNITS; Status: F Test: VENOUS PARTIAL PRESSURE CO2; Value: 46.9; Range: 38.0-50.0; Units: mmHg; Status: F Test: VENOUS PARTIAL PRESSURE O2; Value: 46.1; Range: 30.0-50.0; Units: mmHg; Status: F Test: VENOUS TOTAL CO2; Value: 25.8; Range: 24.0-28.0; Units: MEQ/L; Status: F Test: VENOUS HCO3; Value: 24.3; Range: 23.0-27.0; Units: MEQ/L; Status: F Test: VENOUS BASE EXCESS; Value: -1.7; Range: -2.0-2.0; Status: F Test: VENOUS STANDARD HCO3; Value: 22.7; Units: MEQ/L; Status: F Test: VENOUS O2 SATURATION; Value: 77.1; Range: 60.0-80.0; Units: %; Status: F Lab Order: Lactic Acid (Tineo tube on ice); SPEC'M 09/25/16 00:00 Test: LACTIC ACID LEVEL, LACTATE; Value: 2.9; Range: 0.4-2.0; Abnormal: Above upper panic limits; Units: MMOL/L; Status: F Radiology Order: CT ABD & PELVIS: No Contrast Test: CT ABD & PELVIS: No Contrast REASON FOR EXAMINATION: Abdomen Pain; ; CT of the abdomen and pelvis without contrast; Clinical statement: Pain.; Technique: Multiple axial CT images were obtained from the base of the lungs to the floor of the pelv; is utilizing 5 mm axial slices without administration of contrast. Coronal and sagittal reconstructio; ns were also obtained.; No comparison is available.; Findings:; Chest: There are extensive bilateral lower lobe infiltrates along with pleural plaques and calcificat; ions.; Abdomen: The kidneys are normal in size bilaterally. There is no evidence of hydronephrosis or nephro; lithiasis. The liver, spleen, pancreas, gallbladder and adrenal glands are unremarkable. The aorta de; monstrates normal caliber and contour. There is no abdominal lymphadenopathy or ascites.; Pelvis: There is diffuse bowel wall thickening involving the majority of the colon. Mild surrounding; inflammatory changes are seen. There is no evidence of obstruction. The urinary bladder is within nor; mal limits. There is no pelvic lymphadenopathy or ascites. The other pelvic structures appear unremar; kable.; Bones: There are no suspicious osseous abnormalities seen. Severe multilevel degenerative disc diseas; e with osteophytic changes are noted throughout the lumbar spine.; Impression:; 1. Findings consistent with pancolitis, likely infectious but possibly inflammatory in nature. No delphine; dence of bowel obstruction.; 2. No obstructive or inflammatory bowel changes.; 3. Extensive bilateral lower lobe infiltrates. Chronic pleural plaques calcifications are also noted.; ; 4. Severe spondylosis of the spine.; ; Outcome: 22:47 Decision to Hospitalize by Provider. mm11 09/26 00:38 Discharge Assessment: Patient awake, alert and oriented x 3. No cognitive and/or js15 functional deficits noted. Patient verbalized understanding of disposition instructions. patient administered narcotics - no. The following High Risk Discharge criteria are identified: None. Admitted to ICU accompanied by nurse, accompanied by tech, family with patient, via stretcher, with oxygen, on monitor, with chart. Condition: unchanged. CT Study completed. Property :Personal belongings accompany Pt. 01:00 Admission hand-off: Report called to Lachelle LINDSEY. js15 01:04 Patient left the ED. js15 Signatures: Dispatcher [employer] EDMS No Thomas, RN RN Laci Villarreal DO DO mm11 Michelle Wagner, ELECTRIC MOTOR CONTROLS ASSEMBLER ELECTRIC MOTOR CONTROLS ASSEMBLER ar3 Tina Beatty, ELECTRIC MOTOR CONTROLS ASSEMBLER ELECTRIC MOTOR CONTROLS ASSEMBLER williams Anny Mayorga, RN RN sls1 Eufemia Recinos,RN RN [facility] Abimael Boucher gr2 Eyad Harley,RN RN mb9 Angie RicciRN RN js15 Faith Raphael, Reg Reg ks16 Corrections: (The following items were deleted from the chart) 09/25 22:41 22:40 LR Solution 1000 ml IV at bolus in left forearm js15 js15 MTDD
[2016-09-26] MEDS ORDERED: NS 500 ML IV SCH (02:00)
[2016-09-26] MEDS ORDERED: LR 1,000 ML IV SCH (02:15)
--- NOTE | 2016-09-26 02:27 | HPE ---
DATE OF ADMISSION: 09/26/2016 PRIMARY CARE PROVIDER[facility] and Dr. Cali CODE STATUS: Full. CHIEF COMPLAINT: Diarrhea, unable to eat and drink, and increased confusion. HISTORY OF PRESENT ILLNESS: Mr. Navarro is an 85-year-old male with past medical history of severe pulmonary hypertension, diastolic heart failure, obstructive sleep apnea (ELBA) not on continuous positive airway pressure (CPAP), restrictive lung disease who presented to the ED complaining of worsening diarrhea. Episode started six days ago. Has been averaging approximately 3-4 episodes a day. Mostly loose, watery stool at times with mucus contents. No melena or hematochezia. History is somewhat unclear regarding his recent antibiotic use. Patient was recently hospitalized from 08/03 to 08/08/2016 for respiratory failure secondary to congestive heart failure (CHF) exacerbation and community-acquired pneumonia. At that time, he was treated with Rocephin and azithromycin, and states that since discharge he had been doing relatively well. However, he states that he finished some antibiotics two weeks ago for unclear reasons. Denies abdominal pain, fevers, chills, night sweats, shortness of breath, palpitations, chest pain, dizziness, lightheadedness or cough. Reports poor appetite in the last week and partner noticed him to be more unsteady on his feet today. Despite not eating, he continued to take all his medications up until today, including all of his antihypertensive agents. Denies prior history of Clostridium difficile (C. diff) infection. In the emergency department (ED), was given so far a total of 3250 IV fluid both normal saline and Lactated Ringers and was started on Flagyl IV. PAST MEDICAL HISTORY: 1. Chronic hypoxic respiratory failure. 2. Severe pulmonary hypertension. Echocardiogram from July 2016 showed right ventricular systolic pressure of 71. 3. Obstructive sleep apnea, not on CPAP. 4. Diastolic heart failure. Ejection fraction of 60% from echocardiogram July 2016. 5. Prostate cancer status post surgery and radiation. 6. Restrictive lung disease. 7. Nocturnal hypoxemia. 8. Gastroesophageal reflux disease (GERD). 9. Atrial fibrillation, currently not on anticoagulation. At his last discharge here, he was sent home with Xarelto; however, this [facility] as they claimed it was not working. 10. Diverticulosis. 11. Spinal stenosis. 12. Claudication. 13. Chronic back pain. 14. Anemia. 15. Glaucoma. PAST SURGICAL HISTORY: 1. Prostatectomy. 2. Bilateral knee replacement. 3. Bilateral inguinal hernia repair. 4. Bilateral cataract repair. ALLERGIES: CONTRAST MEDIA, RED DYE (rash). No known drug allergies. HOME MEDICATIONS: - Tylenol 325 mg every four hours as needed - Norvasc 10 mg by mouth daily - aspirin 81 mg by mouth daily - Lasix 40 mg by mouth daily - ibuprofen 200 mg every six hours as needed - lisinopril 40 mg by mouth daily - Toprol XL total dose is 125 mg by mouth daily - multivitamin - Travatan OU by mouth at bedtime FAMILY HISTORY: Mother from heart disease. Father from lung disease. SOCIAL HISTORY: Patient is a lifetime nonsmoker. No alcohol or drug use. He is a retired police investigator. Currently lives at home with his female partner. No pets. Lifetime travel includes to [place] and [place]. He did work in a [employer] which he states left him having pulmonary disease. REVIEW OF SYSTEMS: CONSTITUTIONAL: Denies fevers, chills, rigors, weight changes. Positive for decreased appetite and fatigue. HEENT: Denies headaches, lightheadedness, dizziness, blurry vision, difficulty with speech and swallow. He was more unsteady on his feet. CARDIOVASCULAR: Positive for chronic bilateral lower extremity edema and on Lasix chronically. Denies chest pain, paroxysmal nocturnal dyspnea, pillow orthopnea. PULMONARY: Denies shortness of breath, productive cough, hemoptysis. GASTROINTESTINAL: Positive diarrhea as mentioned above. No nausea, vomiting, abdominal pain, hematemesis, melena, or hematochezia. GENITOURINARY: There has not been any complaint of decreased urination and no hematuria. Has history of prostate cancer. MUSCULOSKELETAL: Has history of chronic back pain. No bone, joint pain. NEUROLOGICAL: No paralysis, paresthesia, headaches. Was confused earlier. ENDOCRINE: Negative for diabetes, or thyroid disease. LYMPHATICS: No lumps, bumps, or swelling anywhere in neck, axilla, or groin. ONCOLOGY: Positive for history of prostate cancer status post radiation and surgery. HEMATOLOGY: No abnormal bleeding or bruising. PHYSICAL EXAMINATION: VITAL SIGNS: Blood pressure on initial presentation was 69/48, which increased to 114/58. Heart rate fluctuated around 102-136. Respiratory rate 18, temperature 95.4, pulse oximetry 95% on room air. However, he had episodes of hypoxia during examination down to mid 80s. Currently is in the low 90s on four liters nasal cannula. Body mass index (BMI) 28. GENERAL: Patient was lying in bed approximately at a 30 degree angle, comfortable, but chronically ill appearing, appears stated age and partner at the bedside. Answers questions in complete sentences without respiratory distress. HEENT: Normocephalic, atraumatic. Moist oral mucosa. NECK: Supple. Large neck. No jugular venous distention (JVD). Trachea midline. CHEST: Symmetric chest rise. No accessory muscle use. Breath sounds were diminished bilateral lung bases. No crackles appreciated. HEART: Irregular, tachycardic, variable S1, S2 present. Difficult to appreciate any murmurs, rubs, or gallops. ABDOMEN: Soft, nontender, nondistended. Bowel sounds present. Hyperactive. No guarding. No rebound. No peritoneal signs. EXTREMITIES: 2+ pitting edema bilateral lower extremities, which reportedly is chronic for him. NEUROLOGICAL: He is currently awake, oriented times three however he was noticed to be more confused when he first presented. Sensory intact. No focal deficits appreciated at this time. LABORATORY DATA: WBC 27.3, hemoglobin 10.4, hematocrit 31.8, which appears to be his baseline, platelets 181, neutrophils 93. Sodium 144, potassium 4.1, chloride 105, carbon dioxide 24, BUN 49, creatinine 3.78, which is significant when compared to his baseline. Fasting glucose 135, lactic acid 2.9, calcium 8.4, total bilirubin 1.9, direct bilirubin 0.7, AST 49, ALT 35, alcohol is 119, amylase 49, lipase 45. IMAGING: Chest x-ray: Cardiomegaly, extensive bilateral opacity which was present in prior chest x-ray. EKG showed atrial fibrillation with rate of 119. IMPRESSION AND PLAN: Mr. Navarro is an 85-year-old male with past medical history of severe pulmonary hypertension, restrictive pulmonary disease and congestive heart failure (CHF), who presented to the emergency department tonight with worsening diarrhea. 1. Sepsis. He was initially confused. Systolic blood pressure less than 100. So far, he has received 3,250 boluses. His blood pressure did improve with IV fluid hydration. Likely source is GI. Unfortunately, due to history of CHF, will be cautious regarding aggressive hydration. Will continue to monitor him closely in the intensive care unit (ICU). Repeat lactic acid level. Followup stool for Clostridium difficile. In the setting of his recent antibiotic use, C. diff colitis is highly likely. Because of his current septic state, the patient will be started on IV Flagyl and oral vancomycin. Flagyl can be discontinued once he is no longer septic. 2. Congestive heart failure (CHF). Diastolic. Currently is compensated. Because of septic state and risk for septic shock, diuretics will be held for now. However, continue to monitor respiratory status closely. 3. Atrial fibrillation. Rate was initially fast and may be worsened due to his current infection. Xarelto was discontinued by the [facility], reason for this is unclear. Continue to monitor him closely. Hopefully, rate will improve with hydration. He cannot be on any rate controlling agent at this time due to his hypotension, and cannot be on digoxin due to his worsening renal function. 4. Acute renal failure. Secondary to current infection. Continue to monitor, hopefully this will also improve with IV hydration. Repeat labs in the morning. 5. Severe pulmonary hypertension. Continue oxygen supplementation, IV hydration as mentioned above due to his current septic state. 6. History of obstructive sleep apnea (ELBA). Unfortunately, is not being treated with continuous positive airway pressure (CPAP). He has a history of noncompliance in the past. 7. Deep vein thrombosis (DVT) prophylaxis. Sequential compression devices (SCDs) and thromboembolic devices (TEDS) and heparin. DISPOSITION: Due to patient's critical condition, we expect his stay to be greater than two midnights. CODE STATUS: Patient states he still has forty years left in him. He is a FULL CODE. I have both independently examined this patient as well as reviewed the dictated note. I have discussed in detail with the resident the findings and plan of treatment as documented in the residents note. I will continue to follow the patient and offer further guidance to the patients care as necessary during this hospital stay. JOSE
[2016-09-26] MEDS: LATANOPROST 0.005% OPHTH SOLN 2.5 ML OU SCH ×2 (03:02→21:12)
[2016-09-26] MEDS: VANCOMYCIN ORAL SOL 250MG/5ML ORAL SYRINGE PO SCH ×5 (03:02→23:31)
[2016-09-26 05:19] LABS: MEAN CORPUSCULAR HGB CONC 31.1 g/dl (32.0-36.5); MEAN CORPUSCULAR VOLUME 96.4 fl (80.0-96.0); PLATELET COUNT, AUTOMATED 163 k/mm3 (150-450); RED CELL DISTRIBUTION WIDTH 14.4 % (11.5-14.5); WHITE BLOOD COUNT 27.8 K/mm3 (4.0-10.0)
[2016-09-26 05:35] LABS: ALBUMIN/GLOBULIN RATIO 0.76 (1.00-1.93); BILIRUBIN,TOTAL 1.1 MG/DL (0.2-1.0); CALCIUM LEVEL 7.4 MG/DL (8.8-10.2); CREATININE FOR GFR 3.51 MG/DL (0.70-1.30); GLOMERULAR FILTRATION RATE 21.5 (>35); POTASSIUM SERUM 4.3 MEQ/L (3.5-5.1)
[2016-09-26 05:51] LABS: ALBUMIN 2.2 GM/DL (3.2-5.2)
[2016-09-26 05:52] LABS: TOTAL PROTEIN 5.1 GM/DL (6.4-8.2)
[2016-09-26] MEDS: metroNIDAZOLE 500 MG in APPROPRIATE DILUENT 1 EA IV SCH ×3 (06:29→21:12)
[2016-09-26] MEDS: HEPARIN SOD (PORCINE) 5000 UNITS/ML VIAL SQ SCH ×3 (06:29→21:12)
[2016-09-26 07:32] LABS: BANDS 11 % (< 11)
[2016-09-26 07:34] LABS: HYPOCHROMASIA 1+
[2016-09-26 07:35] LABS: BURR CELLS 3+
[2016-09-26 07:36] LABS: TOXIC VACUOLATION 1+
[2016-09-26] MEDS: LACTOBACILLUS ACIDOPHILUS CAP (BACID) PO SCH ×4 (08:00→17:42)
--- NOTE | 2016-09-26 08:05 | ECGEPIP ---
Stationary ECG Study [facility] - ED Test Date: 2016-09-25 Pat Name: WILIAM RIVAS Department: Room: [place] [address] Gender: M Legal Mediator: carolyn : [id number] Requested By: CHAD Rehman Order Number: [id number] Reading MD: Ching Guzmán Measurements Intervals [place] Rate: 119 P: DE: 0 QRS: -3 QRSD: 80 T: 78 QT: 303 QTc: 428 Interpretive Statements ATRIAL FIBRILLATION WITH RAPID VENTRICULAR RESPONSE NONSPECIFIC T-WAVE ABNORMALITY ABNORMAL RHYTHM ECG INCREASED RATE 08/05/16 Electronically Signed On 09-26-2016 8:05:13 EST by Ching Guzmán
--- NOTE | 2016-09-26 08:47 | REP ---
Portable chest x-ray: AP semi-erect view. History: Abdominal pain. Comparison chest x-ray August 03, 2016. Findings: There is heavy calcific pleural plaquing again noted bilaterally. Cardiomegaly is observed unchanged. EKG electrodes are seen. Pulmonary vasculature appears somewhat cephalized. No definite infiltrate is seen. Impression: Extensive calcific pleural plaquing. Cardiomegaly. No definite infiltrate. Signed by Erasto Ivan MD 09/26/2016 08:04 P
--- NOTE | 2016-09-26 08:56 | IPN ---
DATE OF VISIT: 09/26/2016 SUBJECTIVE: Patient seen and examined in the room today. Patient is still complaining about continuous diarrhea and his rectum has become very sore from the frequent bowel movements. Denies any fevers or chills. The patient stated his diarrhea has been going on for the past one week and is getting worse. The patient also noted that he has increased difficulty breathing and required increased oxygen demands. OBJECTIVE: VITAL SIGNS: Temperature 96.7, pulse 88, respirations 18, blood pressure 121/55, pulse oximetry 97% with 5 liters nasal cannula. GENERAL: Fatigued. No acute distress. Alert and oriented times three. HEENT: Normocephalic, atraumatic. Extraocular motors grossly intact. CARDIOVASCULAR: Positive systolic murmur in the second intercostal space. Irregularly irregular, heart rate around 85. PULMONARY: Positive crackles in the bilateral basilar area. No wheezes appreciated. ABDOMEN: Morbidly obese. Soft, nontender, nondistended. Bowel sounds present. EXTREMITIES: 2+ pitting edema bilaterally. LABORATORY DATA: WBC is 27.8, hemoglobin 9.2, hematocrit 29.7, platelet count is 163. Sodium is 144, potassium 4.3, chloride is 111, carbon dioxide 22, BUN is 53, creatinine is 3.51, GFR is 21.5, fasting glucose 122, calcium 7.4, total bilirubin is 1.1, AST 36, ALT is 26, alkaline phosphatase 99, total protein is 5.1, albumin 2.2. Stool C. difficile PCR is positive. ASSESSMENT/PLAN: 1. Septic shock secondary to C. Difficile. Currently the patient has received multiple liters of IV bolus during the admission. Currently the fluid is running at 100 mL per hour. Initially the patient had a systolic blood pressure of 60 during admission. Now the systolic blood pressure is maintained at 105 with a MAP of around 68. The patient will have IV fluid running at 80 mL/h. The patient is currently receiving oral vancomycin and IV Flagyl. 2. C. difficile colitis. The patient had a recent hospitalization for pneumonia and the patient had a course of antibiotics. The patient is receiving by mouth vancomycin and IV Flagyl for the C. difficile colitis and the patient is also taking Bacid. 3. Diastolic congestive heart failure (CHF). Currently the patient has septic shock requiring aggressive IV fluid hydration. The patient did have bilateral pleural effusion based on the CT imaging. Will continue to monitor the patient' s vital signs. 4. Atrial fibrillation. Currently heart rate is in the satisfactory range; heart rate is around 85. Initially the patient had a heart rate greater than 120 during admission. The patient was initially on Xarelto, however it was discontinued by his primary care physician. The reason is unclear. We will obtain records from the primary care physician to find out any possible contraindication for anticoagulation. When the patient was originally hospitalized in July 2016 the patient was discharged with Xarelto. 5. Acute renal failure secondary to septic shock. The patient had a normal renal function 08/2016. Currently the patient has a creatinine of 3.51, GFR 21.5, and the renal function has shown slight improvement in the past several hours with IV hydration. 6. Severe pulmonary hypertension. Continue oxygen. Currently patient is requiring IV hydration for his septic shock. 7. History of obstructive sleep apnea (ELBA). The patient did not have CPAP at home. 8. History of chronic hypoxic respiratory failure. 9. History of prostate cancer status post surgery and radiation. 10. History of restrictive lung disease. 11. Gastroesophageal reflux disease (GERD). 12. History of spinal stenosis. 13. Chronic anemia. 14. History of glaucoma. 15. Metabolic encephalopathy 2/2 C diff, sepsis and hypotension 16. Deep vein thrombosis (DVT) prophylaxis. The patient is on thromboembolic deterrent stockings (TEDS), sequentials and heparin. MTDD
[2016-09-26] MEDS: ASPIRIN 81 MG ENTERIC TAB PO SCH (09:34)
[2016-09-26] MEDS: ACETAMINOPHEN TAB 650MG DOSE (2X325MG) PO PRN (09:34)
[2016-09-26] MEDS: LR 1,000 ML IV SCH ×2 (14:39→20:21)
[2016-09-27] VITALS (106 sets, daily range): BP systolic 61–159; BP diastolic 34–98
[2016-09-27] MEDS: ACETAMINOPHEN TAB 650MG DOSE (2X325MG) PO PRN (00:34)
[2016-09-27] MEDS ORDERED: DIGOXIN INJ 0.5 MG/2 ML AMP (J1160) IV STA ×2 (03:45→04:47)
[2016-09-27 03:56] LABS: ABG HCO3 22.1 MEQ/L (22.0-26.0); ABG PARTIAL PRESSURE CO2 57.7 mmHg (35.0-45.0); ABG PARTIAL PRESSURE O2 149.3 mmHg (75.0-100.0); ABG STANDARD HCO3 19.5 MEQ/L (22.0-26.0); ABG TOTAL CO2 23.9 MEQ/L (23.0-31.0)
[2016-09-27 04:01] LABS: ABG pH (ARTERIAL) 7.202 UNITS (7.350-7.450)
[2016-09-27 04:07] LABS: DIFF SLIDE NUMBER 46; MEAN CORPUSCULAR HEMOGLOBIN 29.1 pg (27.0-33.0); MEAN CORPUSCULAR HGB CONC 29.8 g/dl (32.0-36.5); MEAN CORPUSCULAR VOLUME 97.6 fl (80.0-96.0); PLATELET COUNT, AUTOMATED 169 k/mm3 (150-450); RED CELL DISTRIBUTION WIDTH 15.5 % (11.5-14.5)
[2016-09-27 04:08] LABS: WHITE BLOOD COUNT 34.1 K/mm3 (4.0-10.0)
--- NOTE | 2016-09-27 04:10 | REPUSA ---
CLINICAL HISTORY: Hypoxia. COMMENTS: The cardiac silhouette is enlarged. There is evidence for pulmonary venous congestion compatible with CHF. Small pleural effusions. Passive atelectatic airspace disease of the lower lobes. Left pleural calcified plaques. Bony structures appear normal. IMPRESSION: 1. Enlarged cardiac silhouette. 2. Pulmonary venous congestion compatible with CHF. 3. Small pleural effusions. 4. Passive atelectatic airspace disease of the lower lobes. Thank you for your kind referral of this patient.
[2016-09-27 04:33] LABS: BANDS 4 % (< 11); NUCLEATED RED BLOOD CELL 1 % (0-0)
[2016-09-27 04:34] LABS: ALBUMIN 2.4 GM/DL (3.2-5.2); CALCIUM LEVEL 7.8 MG/DL (8.8-10.2); CREATININE FOR GFR 4.01 MG/DL (0.70-1.30); GLOMERULAR FILTRATION RATE 18.5 (>35); PHOSPHORUS LEVEL 4.5 MG/DL (2.5-4.9); POTASSIUM SERUM 4.2 MEQ/L (3.5-5.1)
[2016-09-27 04:35] LABS: CRENATED RBC 1+; TARGET CELLS 1+
[2016-09-27] MEDS ORDERED: NOREPINEPHRINE 4 MG/4 ML AMP As Ordered ONE (04:46)
[2016-09-27] MEDS: NOREPINEPHRINE BITARTRATE 8 MG in D5W 500 ML IV SCH ×2 (06:30→15:07)
[2016-09-27 06:47] LABS: ABG BASE EXCESS -4.7 (-2.0-2.0); ABG PARTIAL PRESSURE CO2 47.8 mmHg (35.0-45.0); ABG PARTIAL PRESSURE O2 145.7 mmHg (75.0-100.0); ABG STANDARD HCO3 20.6 MEQ/L (22.0-26.0); ABG TOTAL CO2 23.5 MEQ/L (23.0-31.0); ABG pH (ARTERIAL) 7.281 UNITS (7.350-7.450)
[2016-09-27] MEDS: HumaLOG INSULIN (NovoLOG) PER UNIT SC SCH ×4 (07:30→21:00)
[2016-09-27] MEDS: NS 500 ML IV SCH (07:32)
[2016-09-27] MEDS: HEPARIN SOD (PORCINE) 5000 UNITS/ML VIAL SQ SCH ×3 (07:34→21:28)
[2016-09-27] MEDS: metroNIDAZOLE 500 MG in APPROPRIATE DILUENT 1 EA IV SCH ×3 (07:34→21:28)
[2016-09-27] MEDS: VANCOMYCIN ORAL SOL 250MG/5ML ORAL SYRINGE PO SCH ×4 (07:34→23:39)
[2016-09-27] MEDS ORDERED: GLUCOSE 4 GM CHEW TABLET PO PRN (07:45)
[2016-09-27] MEDS ORDERED: DEXTROSE 50% 50 ML SYRINGE IV PRN (07:45)
[2016-09-27] MEDS ORDERED: GLUCAGON FOR INJ 1 MG VIAL (J1610) SC PRN (07:45)
[2016-09-27 09:10] LABS: ABG BASE EXCESS -5.5 (-2.0-2.0); ABG CPAP 18; ABG DEVICE BIPAP; ABG HCO3 21.3 MEQ/L (22.0-26.0); ABG PARTIAL PRESSURE CO2 47.7 mmHg (35.0-45.0); ABG PARTIAL PRESSURE O2 169.4 mmHg (75.0-100.0); ABG STANDARD HCO3 19.9 MEQ/L (22.0-26.0); ABG TOTAL CO2 22.7 MEQ/L (23.0-31.0); ABG pH (ARTERIAL) 7.267 UNITS (7.350-7.450); MIXED BASE EXCESS -6.2; MIXED HCO3 20.9 MEQ/L; MIXED O2 SATURATION 72.8 %; MIXED PARTIAL PRESSURE CO2 49.4 mmHg; MIXED PARTIAL PRESSURE O2 42.2 mmHg; MIXED PH 7.245 UNITS; MIXED STANDARD HCO3 18.9 MEQ/L; MIXED TOTAL CO2 22.5 MEQ/L
[2016-09-27] MEDS ORDERED: SODIUM CHLORIDE 0.9% 1000 ML IV ONE ×5 (09:15→18:15)
[2016-09-27] MEDS: LACTOBACILLUS ACIDOPHILUS CAP (BACID) PO SCH ×3 (09:26→18:15)
[2016-09-27] MEDS: PANTOPRAZOLE 40MG INJ (PROTONIX) (C9113) IV SCH (09:26)
[2016-09-27] MEDS: ASPIRIN 81 MG ENTERIC TAB PO SCH (09:26)
--- NOTE | 2016-09-27 09:41 | REP ---
Portable chest x-ray: Single view. 6:30 a.m. film. History: [place]-Swathi catheter placement. Comparison study earlier on September 27, 2016, 3:38 a.m. Findings: A right subclavian line has been inserted. The [place]-Swathi catheter is seen coursing through the right heart but its tip is not clearly visualized. It appears to be within the right main pulmonary artery region. There is extensive calcific pleural plaquing again noted bilaterally. Mildly prominent heart is seen. Lung mckinley are felt to be unchanged. No evidence of pneumothorax. Signed by Erasto Ivan MD 09/27/2016 10:23 A
--- NOTE | 2016-09-27 10:20 | CCN ---
DATE: 09/27/2016 CRITICAL CARE NOTE: I was called emergently to the intensive care unit to evaluate this 85-year-old male with shock. He was admitted on 09/26/2016 with 6 days of diarrhea. A polymerase chain reaction (PCR) study was positive for Clostridium (C) difficile. Despite fluid hydration, he developed hypotension and increasing respiratory distress. He had been admitted weeks ago with pneumonia and treated with aggressive intravenous (IV) antibiotic therapy. On review of the electronic medical record, he has an extensive past medical history of hypertension, gastroesophageal reflux disease, prostate cancer. He has restrictive lung disease secondary to lung scarring from remote trauma, obstructive sleep apnea syndrome, but intolerant of continuous positive airway pressure (CPAP), pulmonary hypertension, [facility] On my arrival in the intensive care unit, he is ill appearing. His temperature is 97, pulse rate 133, respirations 22, blood pressure 64/35. HEENT: His pupils are equal and do react to light. He is able to answer simple questions. Oral mucosa is moist. Jugular veins are distended. Heart sounds are irregularly irregular, consistent with atrial fibrillation. Breath sounds show crepitance bilaterally. No rales. Abdomen is soft with borborygmus. Extremities show 1 mm of edema. Diagnostic studies: His chest x-ray shows extensive lung scarring and pleural calcification, which has been stable. I see no new infiltrates. White cell count is 34.1 with 85% neutrophils and 4 bands. Hemoglobin 10.1, hematocrit 35.5, platelet count 169,000. Sodium is 143, potassium 4.2, chloride 110, CO2 25, BUN 62, creatinine 4.0, glucose 178. Arterial blood gases show pH 7.20, pCO2 57, pO2 149. The primary problem requiring critical attention is: 1. Acute respiratory failure. The patient has a mixed acidosis. Will place him on noninvasive positive pressure ventilation and recheck an arterial blood gas. If his hypoventilation does not respond, intubation will be necessary for mechanical ventilatory support. 2. Shock. The patient has received fluid resuscitation. Given a history in the record of congestive heart failure, there has been some concerns in regard to additional fluid resuscitation. Will initiate Levophed to stabilize his blood pressure and place a right heart catheterization to optimize cardiac output and fluid volume in light of his pulmonary hypertension. 3. Acute kidney injury. I suspect this is secondary to acute tubular necrosis. Will check urinary sodium and creatinine and calculate a fractional excretion of sodium. 4. Clostridium difficile. The patient has been started on Flagyl and vancomycin. This is day #2. 5. Deep venous thrombosis (DVT) prophylaxis will be addressed with heparin subcutaneously every 8 hours. 6. Ulcer prophylaxis will be initiated with Protonix given his risk of critical illness. 7. Glycemic control will be monitored and covered with fingerstick blood sugars and subcutaneous insulin by sliding scale. The patient's condition is critical. Prognosis is guarded. 98 minutes was spent in the provision of bedside critical care and coordination.
--- NOTE | 2016-09-27 13:09 | RO ---
DATE OF PROCEDURE: 09/27/2016 PREPROCEDURE DIAGNOSIS: Hypotension. POSTPROCEDURE DIAGNOSIS: Hypotension. PROCEDURE: Right subclavian CVP placement. SURGEON: Dr. Thai Orozco. BAG GRADER: ANESTHESIA: ESTIMATED BLOOD LOSS: The patient was seen and the procedure explained to the patient as were all the possible complications pertaining thereto including but not limited to bleeding, infection, medication reaction and lung collapse and informed consent conversation was held. A time-out occurred. The patient was placed in supine position. Skin overlying the right subclavian vein was prepped with Chloraprep, draped in sterile fashion. A 25-gauge needle was used to raise a skin wheal with 1% lidocaine. Thereafter a 17-gauge introducer needle was placed in through the skin and into the right subclavian vein. Free return of venous blood was obtained. A vascular tip guidewire was advanced. A small incision was made adjacent to the guidewire. An 8.5 [place] Cordis was placed over the guidewire and into position in the right subclavian vein. The catheter was sewn in place. A sterile dressing was applied and IV pressors infused through the catheter. The patient experienced no complications.
--- NOTE | 2016-09-27 13:11 | RO ---
DATE OF PROCEDURE: 09/27/2016 PREPROCEDURE DIAGNOSES: Hypovolemia. Pulmonary hypertension. Congestive heart failure. POSTPROCEDURE DIAGNOSES: Hypovolemia. Pulmonary hypertension. Congestive heart failure. PROCEDURE: Right heart catheterization with [place]-Swathi catheter. SURGEON: Dr. Thai Orozco. RECRUITING AND SELECTION CONSULTANT: ANESTHESIA: ESTIMATED BLOOD LOSS: The patient was seen and the procedure explained to the patient as were all the possible complications pertaining thereto including but not limited to bleeding, infection, reaction to medication, cardiac arrhythmia and informed consent was obtained. A quad lumen oximetric Misael delusional flow-directed [place]-Swathi catheter was prepared, connected to pressure monitoring and inserted into the right subclavian venous system via the Cordis previously placed. Pressures were monitored during insertion of the catheter. Once in position, the balloon was inflated and the [place]-Swathi catheter placed through the chambers of the right heart recording pressures during insertion. Rate atrial, right ventricular, pulmonary arterial and pulmonary capillary wedged positions were appreciated. Once in position at 60 cm, the balloon was deflated and the wedge pressure reverted to pulmonary arterial pressure once again. The catheter was left in position. Thermodilution cardiac output was coordinated and a postprocedure chest x-ray confirmed adequate placement of the catheter in the pulmonary outflow system. The patient tolerated the procedure well, suffered no apparent complication and is left in unchanged condition in the intensive care unit.
[2016-09-27] MEDS ORDERED: WARFARIN SOD 5 MG TAB PO ONE (17:00)
--- NOTE | 2016-09-27 18:41 | IPN ---
DATE: 09/27/2016 SUBJECTIVE: The patient is seen and examined in the room today. Yesterday around 3:00 a.m., the patient had worsening condition. The patient has continued with decreased oxygen saturation and blood pressure and clinical research administrator, Dr. Orozco , had to be implementation manager urgently for the line placement. Later, the patient had to be placed on pressor to maintain blood pressure, and the patient is on bilevel positive airway pressure (BIPAP) to maintain oxygen saturation. Initially, the patient has atrial fibrillation with rapid ventricular rate with a heart rate around greater than 130s. With all the treatment, the patient's rhythm converted to sinus with a heart rate maintained around 95 to 100. During the morning rounds, the patient's mean arterial pressure is being maintained greater than 65 with the pressor. The patient is on BIPAP with oxygen saturation greater than 90%. The patient is in sinus rhythm. OBJECTIVE: VITAL SIGNS: Temperature is 98.2, pulse is 96, respiratory rate 16, blood pressure is 95/51, pulse oximetry is 99% on non-invasive positive pressure ventilation (NIPPV) with 70% FiO2. GENERAL: The patient is alert, awake. Able to follow commands. HEENT: The patient has BiPAP mask on. Normocephalic, atraumatic. CARDIOVASCULAR: Regular rate with heart rate running around 80 to 100. Positive S1, S2. Sinus rhythm. RESPIRATORY: Decreased breath sounds. Positive crackles bilaterally. No wheezes appreciated. ABDOMEN: Obese, nontender, soft. EXTREMITIES: No edema. No cyanosis. LABORATORY DATA: WBC at 34.1, hemoglobin is 10.6, hematocrit is 35.5, platelet count is 169. Sodium is 143, potassium 4.2, chloride is 110, carbon dioxide 25, BUN 62, creatinine 4.01, GFR is 18.5, fasting glucose 127, lactic acid 1.3, calcium is 7.8, phosphorous 4.5, total CK is 82, troponin I is 0.08, BNP is 315, albumin is 2.4. UA is trace leukocyte esterase, 6 WBC, 1 bacteria. ABG showed pH of 7.267, PCO2 is 47.7, PO2 is 169.4. ASSESSMENT AND PLAN: 1. Severe sepsis secondary to Clostridium (C) difficile. Currently, the patient has line placement. We will continue to watch the patient's pressure and the central venous pressure. We appreciate clinical research administrator, Dr. Orozco, assisting with the management. The patient is on pressor and mean arterial pressure has been maintained above 65. The patient is on oral vancomycin and IV Flagyl. 2. Atrial fibrillation with rapid ventricular rate secondary to significant physical illnesses. The patient did convert back to sinus approximately four hours after the onset. We will continue to monitor. Heart rate is within satisfactory range. 3. Renal failure. Multiple boluses of intravenous fluids have been given to the patient. We will see if the patient's renal function will recover. Fluid status is very difficult to determine and manage for the patient due to history of congestive heart failure and the patient currently having intravascular dehydration; however, the patient has significant fluid in the third space, including the bilateral lungs. We will consider consulting nephrology if the patient's renal function continues to decrease. 4. Clostridium (C) difficile colitis. The patient has been on oral vancomycin and IV Flagyl. However, the patient's white count continues to trend up. We will consult infectious disease specialist, Dr. Berger. 5. Diastolic congestive heart failure (CHF). The patient has severe sepsis. The patient requires fluid. We understand that the patient has significant bilateral pleural effusions and creates a significantly difficult situation. Currently, the patient is on pressors to maintain blood pressure. The patient is getting intermittent boluses for the severe sepsis. We will continue to monitor the patient for sign of fluid overload. 6. Severe pulmonary hypertension. The patient is on BiPAP. The patient has a Spring catheter, and we will continue to monitor the wedge pressure. 7. History of obstructive sleep apnea. The patient did not use his CPAP at home. 8. History of chronic hypoxic respiratory failure. 9. History of prostate cancer, status post surgery and radiation. 10. History of restrictive lung disease. 11. Gastroesophageal reflux disease (GERD). On Protonix. 12. History of spinal stenosis. 13. History of anemia. 14. Deep vein thrombosis (DVT) prophylaxis. On heparin. MTDD
[2016-09-27 18:44] LABS: MEAN CORPUSCULAR HGB CONC 31.4 g/dl (32.0-36.5); MEAN CORPUSCULAR VOLUME 95.4 fl (80.0-96.0); RED CELL DISTRIBUTION WIDTH 14.9 % (11.5-14.5); WHITE BLOOD COUNT 20.5 K/mm3 (4.0-10.0)
[2016-09-27 19:12] LABS: CALCIUM LEVEL 7.2 MG/DL (8.8-10.2); CREATININE FOR GFR 4.2 MG/DL (0.70-1.30); GLOMERULAR FILTRATION RATE 17.5 (>35); POTASSIUM SERUM 4.1 MEQ/L (3.5-5.1)
--- NOTE | 2016-09-27 19:43 | CR ---
DATE OF CONSULTATION: 09/26/2016 REQUESTING PHYSICIAN: Dr. Lorna Howe REASON FOR CONSULTATION: Management of acute oliguric acute kidney injury. CHIEF COMPLAINT: Patient presented to the emergency room two days ago with profuse diarrhea and inability to eat or drink for almost a week. NOTE: History was obtained from the medical team and from patient's chart. Patient is unable to provide any reliable history because of his severe sickness. HISTORY OF PRESENT ILLNESS: Mr. Navarro is an 85 year old male with no significant past medical history of renal disease. His baseline creatinine about a month ago was less than 1. He has significant other comorbidities including severe pulmonary hypertension, obstructive sleep apnea, diastolic congestive heart failure, history of continuous positive airway pressure (CPAP), restrictive lung disease. He presented to the emergency room on the night of 09/25/2016 with profuse diarrhea almost 3-4 episodes a day. They were loose, watery stools with mucous in it. There was no blood in the stool. He denied any melena. Patient also denied any nausea or vomiting. Patient presented with normal blood pressure at the time. He was resuscitated in the emergency room with 3 liters of IV fluid and started on antibiotics. Later on he was found to have a Clostridium difficile infection. Despite IV fluid hydration and starting the antibiotics, patient became hypotensive and because of the septic shock he needed to be transferred to ICU. Because of the aggressive fluid hydration and history of congestive heart failure patient also had some respiratory distress and he had to be started on bi-level positive airway pressure. Patient presented with a creatinine of 3.7 on admission, which has worsened to a creatinine of 4 today. He is oliguric for the last two days. His urine output was 150 mL yesterday and 80 mL so far today since morning. Because of the septic shock, he is currently on Levophed infusion. He has received 2 liters of IV normal saline bolus so far since today morning. He also got a [place]-Swathi catheter and his cardiac output is being monitored along with CVP. His CVP is around 12 at this time. Despite the aggressive fluid hydration and pressors and MAP of above 65 at this time, patient remains oliguric so nephrology service was called for further management of acute kidney injury. PAST MEDICAL HISTORY: 1. Chronic hypoxic respiratory failure. 2. Severe pulmonary hypertension. 3. Obstructive sleep apnea, not on CPAP at home.. 4. Diastolic heart failure with a left ventricle ejection fraction of around 60%. 5. History of cancer of prostate status post prostate surgery. 7. Gastroesophageal reflux disease. 8. Atrial fibrillation. 9. Diverticulosis. 10. Spinal stenosis. 11. Chronic low back pain. 12. Anemia. 13. Glaucoma. PAST SURGICAL HISTORY: 1. Prostatectomy. 2. Bilateral knee replacement. 3. Bilateral inguinal hernia repair. 4. Bilateral cataract repair. ALLERGIES: Patient is allergic to RED DYE and IV CONTRAST MEDIA. HOME MEDICATIONS: - Tylenol - Norvasc 10 mg by mouth daily - aspirin - Lasix 40 mg by mouth daily - ibuprofen - lisinopril 40 mg by mouth daily - Toprol XL 125 mg daily - Travatan eye drops Patient continued to take his diuretics and lisinopril despite having diarrhea up until the day of admission to the hospital. FAMILY HISTORY: Positive for heart disease in the mother and lung disease in the father. No significant family history of end stage renal disease requiring hemodialysis. SOCIAL HISTORY: Patient denies any alcohol abuse, drug abuse and he never smoked in the past. He is a retired patrol police sergeant and living with a female partner at this time. REVIEW OF SYSTEMS: CONSTITUTIONAL: Patient is very weak and febrile at this time. Unable to provide any reliable history. EYES: He denies any blurry vision or double vision. ENT: He denies any ear discharge, dysphagia or odonphagia. CARDIOVASCULAR: Positive history of congestive heart failure. Patient was in atrial fibrillation this morning requiring Digoxin. He denies any chest pain or palpitations at this time. RESPIRATORY: Patient is short of breath, he is wearing BIPAP at this time. GI: Positive history of diarrhea for last one week and now he is found to have positive C. Difficile. GENITOURINARY: He denies any history of dysuria, hematuria but he does report history of prostate cancer in the past. MUSCULOSKELETAL: He has chronic low back pain and currently reporting weakness and inability to walk. CENTRAL NERVOUS SYSTEM: No history of seizures or stroke disorder in the past. ENDOCRINE: No history of diabetes or thyroid disease. HEMACOLOGIC/ONCOLOGIC: Positive history of CA prostate status post prostatectomy and radiation. PSYCHE: No history of depression or anxiety. All other review of systems is negative. PHYSICAL EXAMINATION: GENERAL: Patient is awake, alert, oriented times three wearing a BIPAP at this time. Very weak and tired. CURRENT VITAL SIGNS: Temperature 98.2 degree Fahrenheit, blood pressure is 94/54, pulse is 96, respiratory rate 20, saturating 99% on BIPAP at 50% FiO2. I checked patient's vitals for the last 24 hours and his lowest blood pressure has been in 70s. INTAKE AND OUTPUT: Patient's urine output recorded yesterday is 150 mL and today urine output is 80 mL since midnight last night. He received 3.5 liters of fluid so far since midnight. Weight on the bath scale is 91.9 kg today. HEAD AND NECK EXAM: Extraocular muscles intact. Pupils equal, round, reactive to light. Moist mucous membranes. Neck is supple. There is a mildly elevated jugular venous distention. CARDIOVASCULAR: S1, S2, irregular heart rate. No murmur, rub or gallop. RESPIRATORY: Decreased breath sounds at the bases and mild crepitations at the bases on deep inspiration. ABDOMEN: Distended, soft, non-distended, no rebound tenderness, no ascites or organomegaly. Positive suprapubic surgical scar from a chanel prostatectomy. Patient has a Irving catheter with small amount of light brown colored urine in the bag. EXTREMITIES: He has trace edema of the bilateral lower extremities. No clubbing or cyanosis. Pulses are 2+. CENTRAL NERVOUS SYSTEM: No focal neurologic deficit. Power is 5/5 in all extremities at this time. SKIN: No rashes. No ulcers. PSYCHE: Normal mood and affect at this time. LYMPH NODES: No significant cervical, axillary or inguinal lymphadenopathy. LABORATORY DATA: CBC showed a WBC of 34, hemoglobin 10.6, platelets are 169. Urinalysis shows it was cloudy. Proteins are 1+. Negative nitrate and leukocyte esterase with trace. Large amount of amorphous sediment on urinalysis. Urine enzyme creatinine was 332 and sodium was 16. ABG done today in the morning showed pH was 7.26, PCO2 47, PO2 169, bicarbonate 21.3. Oxygen sat was 99.3%. BMP showed sodium 143, potassium 4.2, chloride 110, bicarbonate 25, BUN 62, creatinine 4.01. Lactic acid is 1.3, calcium is 7.8, phosphorous is 4.5. Creatinine kinase is 82. BNP was 315. Albumin was 2.4. MICROBIOLOGY: Stool for C. difficile is positive. Blood cultures are negative so far. IMAGING: A chest x-ray done today showed [place]-Swathi catheter placement on the right side. Extensive calcific pleural plaques bilaterally. Cardiomegaly with pulmonary venous congestion. CT Abdomen and pelvis: CAT scan of the abdomen and pelvis showed jovel colitis. No obstruction or inflammatory bowel changes. Severe spondylosis of the spine. CURRENT MEDICATIONS: Patient's current medications are all reviewed by me that include Levophed infusion, Flagyl 500 mg IV every 8 hours, Tylenol as needed, aspirin 81 mg daily, Digoxin 0.125 mg IV times two doses were given for atrial fibrillation with RVR, heparin subcu, insulin sliding scale, normal saline (NS) 500 mL bolus times four, Protonix 40 mg IV daily, vancomycin 125 mg by mouth every 6 hours, and warfarin 5 mg by mouth one dose. ASSESSMENT: 85-year-old male with past medical history of diastolic congestive heart failure, severe pulmonary hypertension, obstructive sleep apnea admitted this time to ICU with septic shock secondary to C. difficile colitis, hypoxic respiratory failure requiring BIPAP and acute oliguric renal failure. PLAN: 1. Acute oliguric kidney injury. Patient is oliguric for the last two days. Etiology is most likely because of the septic shock and hypotension causing ATN and patient was also taking his Lasix and uybifrhqwie-ujlrfnjcwh-gafvlv (ASHLEE) inhibitors at home. Patient's volume status is well optimized at this time. His CVP is above 10. I would recommend holding the further IV fluid boluses, maintain a MAP of above 65, titration of the pressors is as per ICU team. There is no urgent need for hemodialysis procedure at this time. Patient's electrolytes are acceptable at this time. I will not give diuretic to this patient at this time because of acute renal failure and septic shock. Continue to monitor intake and output. Avoid vcnfazzvnfp-rnwfkfjbfs-flkhhw (ASHLEE) inhibitors and IV contrast dye and further nephrotoxic medications at this time. I am hopeful that by improving sepsis and volume status hopefully patient will start making urine within next 48 to 72 hours. I would evaluate the patient daily for any need to start renal replacement therapy. 2. Septic shock secondary C. difficile colitis. Patient is also started on Levophed. His mixed venous Oxygen is around 70%. Mean arterial pressure is more than 65. No further need for IV fluid boluses at this time. Continue IV Flagyl, by mouth vancomycin and follow up blood cultures. 3. Atrial fibrillation with rapid ventricular rate. Patient was given Digoxin 0.125 mg IV times two doses. Heart rate is controlled at this time. If patient goes into atrial fibrillation again we might need to start him on IV amiodarone. 4. Mixed respiratory and metabolic acidosis. Patient has already been started on BIPAP. His pH improved to 7.26 after initiation of BIPAP. His serum bicarbonate level is around 22. No need of IV bicarbonate administration at this time. 5. History of diastolic congestive heart failure and severe pulmonary hypertension. Patient has been aggressively hydrated. I would avoid given further IV fluids until patient becomes further hypotensive or CVP drops below 8. Fluid management will be done according to the [place]-Swathi catheter. Hold the antihypertensive medications and diuretics at this time. Thank you for involving us in the care of this patient. Plan of care was discussed with the patient's RN at the bed side and with the hospitalist's team Dr. Howe. I shall be happy to follow the patient along with you tomorrow morning.
--- NOTE | 2016-09-27 21:10 | REPUSA ---
CLINICAL HISTORY: Sepsis. TECHNIQUE: Realtime sonographic images were obtained in multiple projections. COMMENTS: The right kidney measures 11.1 cm, free of hydronephrosis. There is no evidence of solid or cystic ma ss. There is no perinephric fluid. There is no renal calculus. The left kidney is not identified. Irving catheter is not identified. The bladder is underdistended. IMPRESSION: Right kidney is unremarkable. Left kidney is not identified. Thank you for your kind referral of this patient.
[2016-09-27] MEDS: LATANOPROST 0.005% OPHTH SOLN 2.5 ML OU SCH (21:27)
[2016-09-28] VITALS (37 sets, daily range): BP systolic 69–133; BP diastolic 42–76
[2016-09-28] MEDS: NOREPINEPHRINE BITARTRATE 8 MG in D5W 500 ML IV SCH ×2 (00:26→15:00)
--- NOTE | 2016-09-28 02:05 | EDDOCDS ---
Physician Documentation [facility] Name: Les Navarro Age: 85 yrs Sex: Male : 1930 Arrival Date: 09/25/2016 Time: 19:44 Bed 1 Private MD: Bhakti Mccloud., DO Disposition: 09/25/16 22:47 Hospitalization ordered by Thai Hunt for Inpatient Admission. Preliminary diagnosis are Acute kidney failure, Hypotension, Diarrhea, unspecified - Suspect C.Diff. - Bed requested for ICU. - Status is Inpatient Admission. js15 - Condition is Stable. - Problem is an acute exacerbation. - Symptoms have improved. Historical: - Allergies: Red Dye; - Home Meds: 1. aspirin 81 mg Oral tab 1 tab once daily 2. amlodipine 10 mg Oral tab 5 mg once daily 3. lisinopril 40 mg Oral tab 1 tab once daily 4. metoprolol succinate 100 mg Tb24 1 tab once daily 5. metoprolol succinate 25 mg Tb24 1 tab once daily 6. omeprazole 20 mg Oral cpDR 1 cap once daily 7. acetaminophen 325 mg Oral tab 8. travoprost 0.004 % ophthalmic drop 1 drop nightly - PMHx: Hypertension; prostate cancer; GERD; - PSHx: Hernia repair; Knee Arthroplasty, Left; Knee Arthroplasty, Right; Prostatectomy; - Social history: Smoking status: Patient states was never smoker of tobacco. No barriers to communication noted, The patient speaks fluent [place], Speaks appropriately for age. - Family history: Not pertinent. - : The pt / caregiver states he / she is not on anticoagulants. Home medication list is obtained from family members. - Exposure Risk Screening:: None identified. Vital Signs: 09/25 19:48 BP 69 / 48; Pulse 102; Resp 18 S; Temp 95.4(T); Pulse Ox 95% on R/A; Weight 86.18 kg / gr2 189.99 lbs (R); Height 5 ft. 9 in. (175.26 cm) (R); Pain 2/10; 20:02 BP 81 / 47 (auto/); js15 20:03 Pulse 136 MON; js15 20:08 BP 90 / 49 (auto/); js15 20:08 Pulse 120 MON; js15 20:19 BP 104 / 53 (auto/); js15 20:25 Pulse 114 MON; Pulse Ox 94% ; js15 20:45 BP 87 / 54 (auto/); js15 20:45 Pulse 114 MON; Pulse Ox 95% ; js15 20:55 BP 106 / 55 (auto/); js15 20:55 Pulse 138 MON; Pulse Ox 94% ; js15 21:01 BP 87 / 54 (auto/); js15 21:01 Pulse 104 MON; Pulse Ox 88% ; js15 21:06 BP 89 / 52 (auto/); js15 21:06 Pulse 104 MON; Pulse Ox 97% ; js15 21:11 BP 94 / 52 (auto/); js15 21:11 Pulse 103 MON; Pulse Ox 90% ; js15 21:16 BP 103 / 57 (auto/); js15 21:16 Pulse 106 MON; Pulse Ox 94% ; js15 21:21 BP 108 / 56 (auto/); js15 21:21 Pulse 105 MON; Pulse Ox 97% ; js15 21:25 Pulse 112 MON; Pulse Ox 91% ; js15 21:26 BP 75 / 46 (auto/); js15 21:31 BP 87 / 52 (auto/); js15 21:31 Pulse 111 MON; Pulse Ox 98% ; js15 21:35 Pulse 107 MON; Pulse Ox 95% ; js15 21:36 BP 93 / 54 (auto/); js15 21:40 Pulse 105 MON; Pulse Ox 94% ; js15 21:41 BP 68 / 35 (auto/); js15 21:45 BP 89 / 51 (auto/); js15 21:45 Pulse 104 MON; Pulse Ox 92% ; js15 21:46 BP 101 / 60 (auto/); js15 21:46 Pulse 106 MON; Pulse Ox 92% ; js15 21:51 BP 108 / 53 (auto/); js15 21:51 Pulse 104 MON; Pulse Ox 94% ; js15 21:56 BP 114 / 58 (auto/); js15 21:56 Pulse 108 MON; Pulse Ox 96% ; js15 22:05 Pulse 104 MON; Pulse Ox 90% ; js15 22:06 BP 101 / 54 (auto/); js15 22:11 BP 106 / 56 (auto/); js15 22:11 Pulse 105 MON; Pulse Ox 90% ; js15 22:16 BP 99 / 51 (auto/); js15 22:16 Pulse 105 MON; Pulse Ox 88% ; js15 22:21 BP 91 / 53 (auto/); js15 22:21 Pulse 103 MON; Pulse Ox 96% ; js15 22:25 Pulse 103 MON; Pulse Ox 90% ; js15 22:26 BP 113 / 55 (auto/); js15 22:31 BP 92 / 53 (auto/); js15 22:31 Pulse 103 MON; Pulse Ox 69% ; js15 22:38 BP 106 / 59 (auto/); js15 22:39 Pulse 109 MON; Pulse Ox 95% ; js15 22:41 BP 115 / 58 (auto/); js15 22:41 Pulse 111 MON; Pulse Ox 94% ; js15 22:46 BP 106 / 55 (auto/); js15 22:46 Pulse 116 MON; Pulse Ox 93% ; js15 22:51 BP 119 / 68 (auto/); js15 22:51 Pulse 108 MON; Pulse Ox 95% ; js15 22:56 BP 109 / 58 (auto/); js15 22:56 Pulse 109 MON; Pulse Ox 95% ; js15 23:01 BP 108 / 55 (auto/); js15 23:01 Pulse 105 MON; Pulse Ox 95% ; js15 23:06 BP 114 / 55 (auto/); js15 23:06 Pulse 107 MON; Pulse Ox 94% ; js15 23:11 BP 106 / 55 (auto/); js15 23:11 Pulse 107 MON; Pulse Ox 96% ; js15 23:23 BP 165 / 84 (auto/); js15 23:23 Pulse 129 MON; Pulse Ox 59% ; js15 23:28 BP 154 / 74 (auto/); js15 23:28 Pulse 128 MON; Pulse Ox 84% ; js15 23:33 BP 133 / 59 (auto/); js15 23:33 Pulse 127 MON; Pulse Ox 91% ; js15 23:38 BP 91 / 56 (auto/); js15 23:38 Pulse 117 MON; Pulse Ox 90% ; js15 23:42 Pulse 117 MON; Pulse Ox 91% ; js15 23:43 BP 105 / 54 (auto/); js15 23:48 BP 97 / 52 (auto/); js15 23:48 Pulse 113 MON; Pulse Ox 92% ; js15 23:53 BP 95 / 55 (auto/); 23:53 Pulse 114 MON; Pulse Ox 93% ; 23:58 BP 91 / 53 (auto/); 23:58 Pulse 111 MON; Pulse Ox 93% ; 09/26 00:02 Pulse 114 MON; Pulse Ox 94% ; 00:03 BP 118 / 56 (auto/); 00:08 BP 94 / 51 (auto/); 00:08 Pulse 96 MON; Pulse Ox 93% ; 00:13 BP 97 / 52 (auto/); 00:13 Pulse 92 MON; Pulse Ox 93% ; 00:18 BP 105 / 55 (auto/); 00:18 Pulse 92 MON; Pulse Ox 93% ; 00:23 BP 98 / 51 (auto/); 00:23 Pulse 93 MON; Pulse Ox 94% ; 00:28 BP 96 / 50 (auto/); 00:28 Pulse 93 MON; Pulse Ox 93% ; 00:33 BP 105 / 55 (auto/); 00:33 Pulse 91 MON; Pulse Ox 93% ; 00:38 BP 98 / 51 (auto/); 00:38 Pulse 94 MON; Pulse Ox 94% ; 00:43 Temp 97.3; 00:43 BP 103 / 56 (auto/); 00:43 Pulse 92 MON; Pulse Ox 94% ; 00:48 BP 97 / 55 (auto/); 00:48 Pulse 93 MON; Pulse Ox 96% ; 00:53 BP 92 / 55 (auto/); 00:53 Pulse 91 MON; Pulse Ox 94% ; 00:58 BP 92 / 55 (auto/); 00:59 Pulse 92 MON; Pulse Ox 93% ; 09/25 19:48 Body Mass Index 28.06 (86.18 kg, 175.26 cm) gr2 MDM: 09/25 20:04 ECG WITH READING ER PHYS+CARDIAG ordered. EDMS 20:21 NS 0.9% 1000 ml IV at bolus once ordered. js15 20:24 NS 0.9% 1000 ml IV at bolus once ordered. mm11 20:24 -Blood Culture (Adults Only), peripheral from different site, or from device/port/PICC mm11 etc. if present ordered. 20:24 IV Saline Lock ordered. mm11 20:24 Undress patient appropriately for examination ordered. mm11 20:25 Amylase Ordered. EDMS 20:25 Basic Metabolic Profile Ordered. EDMS 20:25 CBC with Diff Ordered. EDMS 20:25 Cardiac Injury Profile Ordered. EDMS 20:25 Lipase Ordered. EDMS 20:25 Liver Profile Ordered. EDMS 20:25 Troponin Ordered. EDMS 20:25 Venous Blood Gas (large pea green tube on ice) Ordered. EDMS 20:25 Lactic Acid (Tineo tube on ice) Ordered. EDMS 20:25 -Blood Culture Ordered. EDMS 20:25 C Diff Toxins A&b Ordered. EDMS 20:25 Chest, 1 View Ordered. EDMS 20:25 NOTHING BY MOUTH+DIET ordered. EDMS 20:28 -Blood Culture (Adults Only), peripheral from different site, or from device/port/PICC ml3 etc. if present complete. 20:31 BLOOD CULTURES Ordered. EDMS 21:17 CBC with Diff Reviewed. mm11 21:17 Venous Blood Gas (large pea green tube on ice) Reviewed. mm11 22:00 Financial registration complete. gjb 22:22 Basic Metabolic Profile Reviewed. mm11 22:22 Cardiac Injury Profile Reviewed. mm11 22:22 Lipase Reviewed. mm11 22:22 Liver Profile Reviewed. mm11 22:22 Lactic Acid (Tineo tube on ice) Reviewed. mm11 22:22 Amylase Reviewed. mm11 22:22 Troponin Reviewed. mm11 22:24 CT ABD & PELVIS: No Contrast Ordered. EDMS 22:29 LR Solution 1000 ml IV at bolus once ordered. mm11 22:30 Ciprofloxacin 200 mg IVPB once over 1 hrs ordered. mm11 22:30 metroNIDAZOLE 500 mg IV at 100 mL/hr once over 60 mins ordered. mm11 22:30 BED REQUEST+ADM ordered. EDMS 23:12 [facility] Payment Agreement was scanned into [employer] and attached to record. [email or web address] 23:23 CBC WITH DIFFERENTIAL Ordered. EDMS 23:48 LR Solution 1000 ml IV at 250 mL/hr once ordered. mm11 09/26 00:06 Admission / Observation Status ordered. EDMS 00:10 LACTIC ACID LEVEL, LACTATE Ordered. EDMS 00:43 COMPLETE COMPHRENSIVE METABOLI Ordered. EDMS 01:12 MRSA SCREEN Ordered. EDMS 10:17 T-Sheet-- Draft Copy was scanned into [employer] and attached to record. gb Administered Medications: 09/25 20:22 Drug: NS 0.9% 1000 ml [sodium chloride 0.9 % intravenous solution] Route: IV; Rate: js15 bolus; Site: right antecubital; 21:25 Follow up: IV Status: Completed infusion; IV Intake: 1000ml js15 21:35 Drug: NS 0.9% 1000 ml [sodium chloride 0.9 % intravenous solution] Route: IV; Rate: js15 bolus; Site: right antecubital; 22:30 Follow up: IV Status: Completed infusion; IV Intake: 1000ml js15 22:40 Drug: LR 1000 ml [lactated ringers intravenous solution] Route: IV; Rate: bolus; Site: js15 left hand; 23:30 Follow up: IV Status: Completed infusion; IV Intake: 1000ml js15 22:58 Drug: metroNIDAZOLE 500 mg [metronidazole 500 mg/100 mL-sodium chloride(iso) [facility] intravenous piggyback] Route: IV; Rate: 100 mL/hr; Infused Over: 60 mins; Site: right antecubital; 09/26 00:00 Follow up: IV Status: Completed infusion js15 00:00 Drug: LR 1000 ml [lactated ringers intravenous solution] Route: IV; Rate: 250 mL/hr; js15 Site: left hand; 01:01 Follow up: IV Status: Infusion continued upon admit js15 00:06 Not Given (Discretion of hospitalist Dr. Peralta): Ciprofloxacin 200 mg IVPB once over js15 1 hrs Signatures: Dispatcher [employer] EDMS No Thomas RN Ifrah Gaines, Reg Reg gb Tarik Winn, Professor Of Engineering Unit ml3 Laci Guan, DO DO mm11 Anny Mayorga RN RN [email or web address] Angie Ricci RN RN js15 Beck, Gabriela gjb Sorenson, Kimberly, Reg Reg [email or web address] Eufemia Recinos RN [facility] The chart was reviewed and I authenticate all verbal orders and agree with the evaluation and treatment provided.Corrections: (The following items were deleted from the chart) 00:43 09/25 23:23 RENAL PROFILE ordered. EDMT EDMS Attachments: 23:12 [facility] Payment Agreement [email or web address] 09/26 10:17 T-Sheet-- Draft Copy gb Chart Complete MTDD
--- NOTE | 2016-09-28 02:05 | EDDOCDS ---
Nurse's Notes [facility] Name: Les Navarro Age: 85 yrs Sex: Male : 1930 Arrival Date: 09/25/2016 Time: 19:44 Bed 1 Private MD: Bhakti Mccloud., DO Diagnosis: Acute kidney failure;Hypotension;Diarrhea, unspecified-Suspect C.Diff Presentation: 09/25 20:02 Presenting complaint: Patient states: Diarrhea times 6 days unable to eat or drink, pt sls1 is able to answer questions but unable to follow commands brought directly to bed, placed in trendelenburg. Adult Sepsis Screening: Patient has new or worsening altered mentation (1 point). Patient's respiratory rate is less than 22. Systolic blood pressure is less than or equal to 100 (1 point). Patient has a qSOFA score of 2. No known or suspected infection- Negative Sepsis Screen. Suicide/Homicide risk assessment- the patient denies having any suicidal and/or homicidal ideations and does not present with any other emotional, behavioral or mental health complaints. Status: Patient is not a water softener servicer or dependent. Transition of care: patient was not received from another setting of care. Red Flag criteria, patient assessed and taken directly to a bed. 20:02 Acuity: NELIDA Level 2 sls1 20:02 Method Of Arrival: Walkin/Carried/Asstd sls1 Triage Assessment: 20:15 General: Appears in no apparent distress, Behavior is appropriate for age, cooperative. js15 Pain: Denies pain. The patient is triaged at the bedside. See Assessment in Nurses Notes section of ED record. Neurological: Level of Consciousness is awake, alert, obeys commands, Oriented to person, place, time. Cardiovascular: Capillary refill < 3 seconds Rhythm is atrial fibrillation with rapid ventricular response. Respiratory: Airway is patent Respiratory effort is even, unlabored, Respiratory pattern is regular, symmetrical. GI: Reports diarrhea. Derm: Skin is intact, Skin is dry, Skin temperature is cool. Historical: - Allergies: Red Dye; - Home Meds: 1. aspirin 81 mg Oral tab 1 tab once daily 2. amlodipine 10 mg Oral tab 5 mg once daily 3. lisinopril 40 mg Oral tab 1 tab once daily 4. metoprolol succinate 100 mg Tb24 1 tab once daily 5. metoprolol succinate 25 mg Tb24 1 tab once daily 6. omeprazole 20 mg Oral cpDR 1 cap once daily 7. acetaminophen 325 mg Oral tab 8. travoprost 0.004 % ophthalmic drop 1 drop nightly - PMHx: Hypertension; prostate cancer; GERD; - PSHx: Hernia repair; Knee Arthroplasty, Left; Knee Arthroplasty, Right; Prostatectomy; - Social history: Smoking status: Patient states was never smoker of tobacco. No barriers to communication noted, The patient speaks fluent Hong Konger, Speaks appropriately for age. - Family history: Not pertinent. - : The pt / caregiver states he / she is not on anticoagulants. Home medication list is obtained from family members. - Exposure Risk Screening:: None identified. Screenin:24 Screening information is obtained from the patient, family members. Fall risk: At risk js15 due to age, The following interventions are performed due to a positive Fall Risk Screen: side rails upx2, bed in low position, call light in reach, family at bedside, placed in front of nurses station. Assistance ADL's: requires no assistance with activities of daily living. Abuse/DV Screen: The patient / caregiver reports he/she is: not in a situation that causes fear, pain or injury. Nutritional screening: No deficits noted. Advance Directives: Currently, there is a health care proxy, Significant other- Ann-Marie Vasquez. There is an active DNR order but there is no copy available at this time. home support is adequate. Assessment: 20:23 General: see triage note. Cardiovascular: Heart tones S1 S2 present Chest pain is js15 denied. Respiratory: Breath sounds are clear bilaterally. GI: Abdomen is non- distended Bowel sounds present X 4 quads. Abd is soft and non tender X 4 quads. 21:00 Reassessment: Patient appears in no apparent distress at this time. Pt resting on js15 stretcher in Trendelenburg , denies dizziness or pain; respirations even and unlabored; skin warm, dry. 22:00 Reassessment: Patient appears in no apparent distress at this time. Pt resting on js15 stretcher with eyes closed, respirations even and unlabored; skin warm, dry; will continue to monitor. 22:14 General: call received from Harsha in Lab reporting critical value Lactic acid 2.9. [facility] Reported to Provider and assigned nurse. 23:09 General: Appears in no apparent distress, to be sleeping. Neurological:. Respiratory: js15 Airway is patent Respiratory effort is even, unlabored, Respiratory pattern is regular, symmetrical. Derm: Skin is intact, Skin is normal. 09/26 00:14 Reassessment: Patient appears in no apparent distress at this time. Neurological: Level js15 of Consciousness is awake, alert, obeys commands, Oriented to person, place, time. Cardiovascular: Rhythm is atrial fibrillation. Respiratory: Airway is patent Respiratory effort is even, unlabored, Respiratory pattern is regular, symmetrical. Derm: Skin is intact, Skin is normal. Vital Signs: 09/25 19:48 BP 69 / 48; Pulse 102; Resp 18 S; Temp 95.4(T); Pulse Ox 95% on R/A; Weight 86.18 kg gr2 (R); Height 5 ft. 9 in. (175.26 cm) (R); Pain 10/19; 20:02 BP 81 / 47 (auto/); js15 20:03 Pulse 136 MON; js15 20:08 BP 90 / 49 (auto/); js15 20:08 Pulse 120 MON; js15 20:19 BP 104 / 53 (auto/); js15 20:25 Pulse 114 MON; Pulse Ox 94% ; js15 20:45 BP 87 / 54 (auto/); js15 20:45 Pulse 114 MON; Pulse Ox 95% ; js15 20:55 BP 106 / 55 (auto/); js15 20:55 Pulse 138 MON; Pulse Ox 94% ; js15 21:01 BP 87 / 54 (auto/); js15 21:01 Pulse 104 MON; Pulse Ox 88% ; js15 21:06 BP 89 / 52 (auto/); js15 21:06 Pulse 104 MON; Pulse Ox 97% ; js15 21:11 BP 94 / 52 (auto/); js15 21:11 Pulse 103 MON; Pulse Ox 90% ; js15 21:16 BP 103 / 57 (auto/); js15 21:16 Pulse 106 MON; Pulse Ox 94% ; js15 21:21 BP 108 / 56 (auto/); js15 21:21 Pulse 105 MON; Pulse Ox 97% ; js15 21:25 Pulse 112 MON; Pulse Ox 91% ; js15 21:26 BP 75 / 46 (auto/); js15 21:31 BP 87 / 52 (auto/); js15 21:31 Pulse 111 MON; Pulse Ox 98% ; js15 21:35 Pulse 107 MON; Pulse Ox 95% ; js15 21:36 BP 93 / 54 (auto/); js15 21:40 Pulse 105 MON; Pulse Ox 94% ; js15 21:41 BP 68 / 35 (auto/); js15 21:45 BP 89 / 51 (auto/); js15 21:45 Pulse 104 MON; Pulse Ox 92% ; js15 21:46 BP 101 / 60 (auto/); js15 21:46 Pulse 106 MON; Pulse Ox 92% ; js15 21:51 BP 108 / 53 (auto/); js15 21:51 Pulse 104 MON; Pulse Ox 94% ; js15 21:56 BP 114 / 58 (auto/); js15 21:56 Pulse 108 MON; Pulse Ox 96% ; js15 22:05 Pulse 104 MON; Pulse Ox 90% ; js15 22:06 BP 101 / 54 (auto/); js15 22:11 BP 106 / 56 (auto/); js15 22:11 Pulse 105 MON; Pulse Ox 90% ; js15 22:16 BP 99 / 51 (auto/); js15 22:16 Pulse 105 MON; Pulse Ox 88% ; js15 22:21 BP 91 / 53 (auto/); js15 22:21 Pulse 103 MON; Pulse Ox 96% ; js15 22:25 Pulse 103 MON; Pulse Ox 90% ; js15 22:26 BP 113 / 55 (auto/); js15 22:31 BP 92 / 53 (auto/); js15 22:31 Pulse 103 MON; Pulse Ox 69% ; js15 22:38 BP 106 / 59 (auto/); js15 22:39 Pulse 109 MON; Pulse Ox 95% ; js15 22:41 BP 115 / 58 (auto/); js15 22:41 Pulse 111 MON; Pulse Ox 94% ; js15 22:46 BP 106 / 55 (auto/); js15 22:46 Pulse 116 MON; Pulse Ox 93% ; js15 22:51 BP 119 / 68 (auto/); js15 22:51 Pulse 108 MON; Pulse Ox 95% ; js15 22:56 BP 109 / 58 (auto/); js15 22:56 Pulse 109 MON; Pulse Ox 95% ; js15 23:01 BP 108 / 55 (auto/); 15 23:01 Pulse 105 MON; Pulse Ox 95% ; js15 23:06 BP 114 / 55 (auto/); 15 23:06 Pulse 107 MON; Pulse Ox 94% ; js15 23:11 BP 106 / 55 (auto/); js15 23:11 Pulse 107 MON; Pulse Ox 96% ; js15 23:23 BP 165 / 84 (auto/); js15 23:23 Pulse 129 MON; Pulse Ox 59% ; js15 23:28 BP 154 / 74 (auto/); 15 23:28 Pulse 128 MON; Pulse Ox 84% ; js15 23:33 BP 133 / 59 (auto/); 15 23:33 Pulse 127 MON; Pulse Ox 91% ; 15 23:38 BP 91 / 56 (auto/); 15 23:38 Pulse 117 MON; Pulse Ox 90% ; 15 23:42 Pulse 117 MON; Pulse Ox 91% ; 15 23:43 BP 105 / 54 (auto/); 15 23:48 BP 97 / 52 (auto/); 15 23:48 Pulse 113 MON; Pulse Ox 92% ; 15 23:53 BP 95 / 55 (auto/); 15 23:53 Pulse 114 MON; Pulse Ox 93% ; 15 23:58 BP 91 / 53 (auto/); 15 23:58 Pulse 111 MON; Pulse Ox 93% ; 09/26 00:02 Pulse 114 MON; Pulse Ox 94% ; 15 00:03 BP 118 / 56 (auto/); 15 00:08 BP 94 / 51 (auto/); 00:08 Pulse 96 MON; Pulse Ox 93% ; 15 00:13 BP 97 / 52 (auto/); 00:13 Pulse 92 MON; Pulse Ox 93% ; 15 00:18 BP 105 / 55 (auto/); 15 00:18 Pulse 92 MON; Pulse Ox 93% ; 00:23 BP 98 / 51 (auto/); 15 00:23 Pulse 93 MON; Pulse Ox 94% ; 15 00:28 BP 96 / 50 (auto/); 15 00:28 Pulse 93 MON; Pulse Ox 93% ; 15 00:33 BP 105 / 55 (auto/); 15 00:33 Pulse 91 MON; Pulse Ox 93% ; js15 00:38 BP 98 / 51 (auto/); js15 00:38 Pulse 94 MON; Pulse Ox 94% ; js15 00:43 Temp 97.3; js15 00:43 BP 103 / 56 (auto/); js15 00:43 Pulse 92 MON; Pulse Ox 94% ; js15 00:48 BP 97 / 55 (auto/); js15 00:48 Pulse 93 MON; Pulse Ox 96% ; js15 00:53 BP 92 / 55 (auto/); js15 00:53 Pulse 91 MON; Pulse Ox 94% ; js15 00:58 BP 92 / 55 (auto/); js15 00:59 Pulse 92 MON; Pulse Ox 93% ; js15 09/25 19:48 Body Mass Index 28.06 (86.18 kg, 175.26 cm) gr2 Vitals: 09/25 19:48 Log In Time: September 25, 2016 at 19:48. RN notified that patient meets Red Flag gr2 criteria. ED Course: 19:47 Patient visited by Abimael Boucher. gr2 19:47 Bhakti Mccloud. is Private Physician. gr2 19:47 Patient moved to Waiting gr2 19:54 Patient visited by Abimale Boucher. gr2 19:54 Patient moved to 6 mb9 19:54 Patient moved to Pre RCE gr2 19:54 Patient moved to 6 mb9 19:55 Patient visited by Abimael Boucher. gr2 20:03 Triage Initiated sls1 20:08 Patient moved to Sep 20:09 Patient visited by Michelle Wagner PCA. ar3 20:09 EKG done. (by ED staff). Reviewed by Laci Guan DO. ar3 20:14 Laci Guan DO is Attending Physician. mm11 20:14 Patient visited by Laci Guan DO. mm11 20:23 Patient visited by Laci Guan DO. mm11 20:26 The patient / caregiver is instructed regarding the plan of care and ED course. js15 Accompanied by Significant Other, Patient has correct armband on for positive identification. Placed in gown. Bed in low position. Call light in reach. Side rails up X2. Adult w/ patient. watershed tender on. Pulse ox on. NIBP on. Warm blanket given. 20:27 Inserted saline lock: 18 gauge in right antecubital area The patient tolerated the js15 procedure well. inserted by A Sarah LINDSEY. 20:31 Lactic Acid (Tineo tube on ice) Sent. js15 20: Amylase Sent. js15 20:31 Basic Metabolic Profile Sent. js15 20: CBC with Diff Sent. js15 20:31 Cardiac Injury Profile Sent. js15 20:31 Lipase Sent. 15 20:31 Liver Profile Sent. 15 20:31 Troponin Sent. js15 20:44 BLOOD CULTURES Sent. js15 20:44 Venous Blood Gas (large pea green tube on ice) Sent. js15 20:44 -Blood Culture Sent. js15 21:27 Patient visited by Tina Beatty PCA. williams 22:27 Patient visited by Angie Ricci RN. js15 22:35 Inserted saline lock: 20 gauge in left hand The patient tolerated the procedure well. js15 22:46 Thai Hunt MD is Hospitalizing Provider. mm11 23:12 [facility] Payment Agreement was scanned into [employer] and attached to record. ks16 09/26 00:15 CT ABD & PELVIS: No Contrast Returned. EDMS 00:37 No procedures done that require assistance. js15 10:17 T-Sheet-- Draft Copy was scanned into [employer] and attached to record. gb Administered Medications: 09/25 20:22 Drug: NS 0.9% 1000 ml [sodium chloride 0.9 % intravenous solution] Route: IV; Rate: js15 bolus; Site: right antecubital; 21:25 Follow up: IV Status: Completed infusion; IV Intake: 1000ml js15 21:35 Drug: NS 0.9% 1000 ml [sodium chloride 0.9 % intravenous solution] Route: IV; Rate: js15 bolus; Site: right antecubital; 22:30 Follow up: IV Status: Completed infusion; IV Intake: 1000ml js15 22:40 Drug: LR 1000 ml [lactated ringers intravenous solution] Route: IV; Rate: bolus; Site: js15 left hand; 23:30 Follow up: IV Status: Completed infusion; IV Intake: 1000ml js15 22:58 Drug: metroNIDAZOLE 500 mg [metronidazole 500 mg/100 mL-sodium chloride(iso) [facility] intravenous piggyback] Route: IV; Rate: 100 mL/hr; Infused Over: 60 mins; Site: right antecubital; 09/26 00:00 Follow up: IV Status: Completed infusion 00:00 Drug: LR 1000 ml [lactated ringers intravenous solution] Route: IV; Rate: 250 mL/hr; Site: left hand; 01:01 Follow up: IV Status: Infusion continued upon admit 00:06 Not Given (Discretion of hospitalist Dr. Peralta): Ciprofloxacin 200 mg IVPB once over 1 hrs Intake: 09/25 21:25 IV: 1000.00ml; Total: 1000.00ml. 22:30 IV: 1000.00ml; Total: 2000.00ml. 15 23:30 IV: 1000.00ml; Total: 3000.00ml. 15 Order Results: Lab Order: Amylase; SPEC'M 09/25/16 20:39 Test: AMYLASE; Value: 45; Range: 25-115; Units: U/L; Status: F Lab Order: Basic Metabolic Profile; SPEC'M 09/25/16 20:39 Test: GLUCOSE, FASTING; Value: 135; Range: 83-110; Abnormal: Above high normal; Units: MG/DL; Status: F Test: BLOOD UREA NITROGEN; Value: 49; Range: 7-18; Abnormal: Above high normal; Units: MG/DL; Status: F Test: CREATININE FOR GFR; Value: 3.78; Range: 0.70-1.30; Abnormal: Above high normal; Units: MG/DL; Status: F Test: GLOMERULAR FILTRATION RATE; Value: 19.8; Range: >35; Abnormal: Below low normal; Status: F Test: SODIUM LEVEL; Value: 144; Range: 136-145; Units: MEQ/L; Status: F Test: POTASSIUM SERUM; Value: 4.1; Range: 3.5-5.1; Units: MEQ/L; Status: F Test: CHLORIDE LEVEL; Value: 105; Range: 98-107; Units: MEQ/L; Status: F Test: CARBON DIOXIDE LEVEL; Value: 24; Range: 21-32; Units: MEQ/L; Status: F Test: ANION GAP; Value: 15; Range: 8-16; Units: MEQ/L; Status: F Test: CALCIUM LEVEL; Value: 8.4; Range: 8.8-10.2; Abnormal: Below low normal; Units: MG/DL; Status: F Test Note: ; Units are mL/min/1.73 m2 Chronic Kidney Disease Staging per NKF: Stage I & II GFR >=60 Normal to Mildly Decreased Stage III GFR 30-59 Moderately Decreased Stage IV GFR 15-29 Severely Decreased Stage V GFR <15 Very Little GFR Left ESRD GFR <15 on HUC OB Lab Order: CBC with Diff; SPEC'M 09/25/16 20:39 Test: WHITE BLOOD COUNT; Value: 27.3; Range: 4.0-10.0; Abnormal: Above high normal; Units: K/mm3; Status: F Test: RED BLOOD COUNT; Value: 3.37; Range: 4.30-6.10; Abnormal: Below low normal; Units: M/mm3; Status: F Test: HEMOGLOBIN; Value: 10.4; Range: 14.0-18.0; Abnormal: Below low normal; Units: g/dl; Status: F Test: HEMATOCRIT; Value: 31.8; Range: 42.0-52.0; Abnormal: Below low normal; Units: %; Status: F Test: MEAN CORPUSCULAR VOLUME; Value: 94.2; Range: 80.0-96.0; Units: fl; Status: F Test: MEAN CORPUSCULAR HEMOGLOBIN; Value: 30.7; Range: 27.0-33.0; Units: pg; Status: F Test: MEAN CORPUSCULAR HGB CONC; Value: 32.6; Range: 32.0-36.5; Units: g/dl; Status: F Test: RED CELL DISTRIBUTION WIDTH; Value: 14.4; Range: 11.5-14.5; Units: %; Status: F Test: PLATELET COUNT, AUTOMATED; Value: 181; Range: 150-450; Units: k/mm3; Status: F Test: NEUTROPHILS %; Value: 93.0; Range: 36.0-66.0; Abnormal: Above high normal; Units: %; Status: F Test: LYMPH %; Value: 1.4; Range: 24.0-44.0; Abnormal: Below low normal; Units: %; Status: F Test: MONO %; Value: 3.8; Range: 0.0-5.0; Units: %; Status: F Test: EOS %; Value: 0.2; Range: 0.0-3.0; Units: %; Status: F Test: BASO %; Value: 0.5; Range: 0.0-1.0; Units: %; Status: F Test: LARGE UNSTAINED CELL %; Value: 1.2; Range: 0.0-4.0; Units: %; Status: F Test: NEUTROPHILS #; Value: 25.4; Range: 1.8-7.7; Abnormal: Above high normal; Units: K/mm3; Status: F Test: LYMPH #; Value: 0.4; Range: 1.5-4.5; Abnormal: Below low normal; Units: K/mm3; Status: F Test: MONO #; Value: 1.0; Range: 0.0-0.8; Abnormal: Above high normal; Units: K/mm3; Status: F Test: EOS #; Value: 0.1; Range: 0.0-0.50; Units: K/mm3; Status: F Test: BASO #; Value: 0.1; Range: 0.0-0.2; Units: K/mm3; Status: F Test: LARGE UNSTAINED CELL #; Value: 0.3; Range: 0.0-0.4; Units: K/mm3; Status: F Lab Order: Cardiac Injury Profile; [facility]' 09/25/16 20:39 Test: CPK CREATINE PHOSPHOKINASE; Value: 227; Range: 39-308; Units: U/L; Status: F Test: CK-MB VALUE MASS; Value: 8.8; Range: 0.0-3.6; Abnormal: Above high normal; Units: NG/ML; Status: F Test: MB/CK RELATIVE INDEX; Value: 3.87; Range: < OR =4; Status: F Test Note: ; DIAGNOSIS CRITERIA MMB ng/ml Relative Index (RI) NON-AMI < or = 5 N/A TINEO ZONE > 5 < or = 4 AMI > 5 > 4 Lab Order: Lipase; [facility]' 09/25/16 20:39 Test: LIPASE; Value: 49; Range: 73-393; Abnormal: Below low normal; Units: U/L; Status: F Lab Order: Liver Profile; [facility]' 09/25/16 20:39 Test: AST/SGOT; Value: 49; Range: 15-37; Abnormal: Above high normal; Units: U/L; Status: F Test: ALT/SGPT; Value: 35; Range: 12-78; Units: U/L; Status: F Test: ALKALINE PHOSPHATASE; Value: 119; Range: 45-117; Abnormal: Above high normal; Units: U/L; Status: F Test: BILIRUBIN,TOTAL; Value: 1.9; Range: 0.2-1.0; Abnormal: Above high normal; Units: MG/DL; Status: F Test: BILIRUBIN,DIRECT; Value: 0.7; Range: 0.0-0.2; Abnormal: Above high normal; Units: MG/DL; Status: F Test: TOTAL PROTEIN; Value: 6.4; Range: 6.4-8.2; Units: GM/DL; Status: F Test: ALBUMIN; Value: 2.9; Range: 3.2-5.2; Abnormal: Below low normal; Units: GM/DL; Status: F Test: ALBUMIN/GLOBULIN RATIO; Value: 0.83; Range: 1.00-1.93; Abnormal: Below low normal; Status: F Lab Order: Troponin; SPEC'M 09/25/16 20:39 Test: TROPONIN I; Value: 0.05; Range: < 0.10; Units: NG/ML; Status: F Test Note: ; Troponin I Reference Interval for [employer] [place] LOCI: 99th Percentile= 0.00-0.045 ng/ml Risk Stratification: <= 0.10 ng/ml Decreased Risk for Adverse Clinical Events. 0.10-1.50 ng/ml Increased Risk for Adverse Clinical Events. Evaluation of additional criterion and/or repeat testing in 2-6 hours is suggested to rule out myocardial damage. >= 1.50 ng/ml Indicative of Myocardial Injury. Lab Order: Venous Blood Gas (large pea green tube on ice); SPEC'M 09/25/16 20:39 Test: VENOUS PH; Value: 7.333; Range: 7.330-7.430; Units: UNITS; Status: F Test: VENOUS PARTIAL PRESSURE CO2; Value: 46.9; Range: 38.0-50.0; Units: mmHg; Status: F Test: VENOUS PARTIAL PRESSURE O2; Value: 46.1; Range: 30.0-50.0; Units: mmHg; Status: F Test: VENOUS TOTAL CO2; Value: 25.8; Range: 24.0-28.0; Units: MEQ/L; Status: F Test: VENOUS HCO3; Value: 24.3; Range: 23.0-27.0; Units: MEQ/L; Status: F Test: VENOUS BASE EXCESS; Value: -1.7; Range: -2.0-2.0; Status: F Test: VENOUS STANDARD HCO3; Value: 22.7; Units: MEQ/L; Status: F Test: VENOUS O2 SATURATION; Value: 77.1; Range: 60.0-80.0; Units: %; Status: F Lab Order: Lactic Acid (Tineo tube on ice); SPEC'M 09/25/16 00:00 Test: LACTIC ACID LEVEL, LACTATE; Value: 2.9; Range: 0.4-2.0; Abnormal: Above upper panic limits; Units: MMOL/L; Status: F Radiology Order: CT ABD & PELVIS: No Contrast Test: CT ABD & PELVIS: No Contrast REASON FOR EXAMINATION: Abdomen Pain; ; CT of the abdomen and pelvis without contrast; Clinical statement: Pain.; Technique: Multiple axial CT images were obtained from the base of the lungs to the floor of the pelv; is utilizing 5 mm axial slices without administration of contrast. Coronal and sagittal reconstructio; ns were also obtained.; No comparison is available.; Findings:; Chest: There are extensive bilateral lower lobe infiltrates along with pleural plaques and calcificat; ions.; Abdomen: The kidneys are normal in size bilaterally. There is no evidence of hydronephrosis or nephro; lithiasis. The liver, spleen, pancreas, gallbladder and adrenal glands are unremarkable. The aorta de; monstrates normal caliber and contour. There is no abdominal lymphadenopathy or ascites.; Pelvis: There is diffuse bowel wall thickening involving the majority of the colon. Mild surrounding; inflammatory changes are seen. There is no evidence of obstruction. The urinary bladder is within nor; mal limits. There is no pelvic lymphadenopathy or ascites. The other pelvic structures appear unremar; kable.; Bones: There are no suspicious osseous abnormalities seen. Severe multilevel degenerative disc diseas; e with osteophytic changes are noted throughout the lumbar spine.; Impression:; 1. Findings consistent with pancolitis, likely infectious but possibly inflammatory in nature. No delphine; dence of bowel obstruction.; 2. No obstructive or inflammatory bowel changes.; 3. Extensive bilateral lower lobe infiltrates. Chronic pleural plaques calcifications are also noted.; ; 4. Severe spondylosis of the spine.; ; Outcome: 22:47 Decision to Hospitalize by Provider. mm11 09/26 00:38 Discharge Assessment: Patient awake, alert and oriented x 3. No cognitive and/or js15 functional deficits noted. Patient verbalized understanding of disposition instructions. patient administered narcotics - no. The following High Risk Discharge criteria are identified: None. Admitted to ICU accompanied by nurse, accompanied by tech, family with patient, via stretcher, with oxygen, on monitor, with chart. Condition: unchanged. CT Study completed. Property :Personal belongings accompany Pt. 01:00 Admission hand-off: Report called to Lachelle LINDSEY. js15 01:04 Patient left the ED. js15 Signatures: Dispatcher [employer] EDMS No Thomas, RN RN Ifrah Garcia, Reg Reg gb Laci Guan, DO DO mm11 Kristy, Michelle, CHANNELER OUTSOLE CHANNELER OUTSOLE ar3 Tina Beatty, CHANNELER OUTSOLE CHANNELER OUTSOLE Anny Chilel, RN RN sls1 Eufemia Recinos,RN RN [facility] Abimael Boucher gr2 Eyad Harley,RN RN mb9 Angie RicciRN Faith Garcia, Reg Reg ks16 Corrections: (The following items were deleted from the chart) 09/25 22:41 22:40 LR Solution 1000 ml IV at bolus in left forearm js15 js15 Chart Complete MTDD
[2016-09-28 05:22] LABS: MIXED BASE EXCESS -6.2; MIXED HCO3 20.1 MEQ/L; MIXED PARTIAL PRESSURE CO2 43.8 mmHg; MIXED PARTIAL PRESSURE O2 38.1 mmHg; MIXED STANDARD HCO3 18.9 MEQ/L; MIXED TOTAL CO2 21.5 MEQ/L
[2016-09-28 05:24] LABS: MEAN CORPUSCULAR HEMOGLOBIN 29.4 pg (27.0-33.0); MEAN CORPUSCULAR HGB CONC 30.8 g/dl (32.0-36.5); MEAN CORPUSCULAR VOLUME 95.4 fl (80.0-96.0); PLATELET COUNT, AUTOMATED 104 k/mm3 (150-450); WHITE BLOOD COUNT 12.6 K/mm3 (4.0-10.0)
[2016-09-28 05:31] LABS: CALCIUM LEVEL 7.1 MG/DL (8.8-10.2); CREATININE FOR GFR 4.22 MG/DL (0.70-1.30); GLOMERULAR FILTRATION RATE 17.4 (>35); PHOSPHORUS LEVEL 3.4 MG/DL (2.5-4.9)
[2016-09-28 05:33] LABS: ALBUMIN 1.9 GM/DL (3.2-5.2); ALBUMIN/GLOBULIN RATIO 0.66 (1.00-1.93); BILIRUBIN,TOTAL 0.8 MG/DL (0.2-1.0); CALCIUM LEVEL 7.4 MG/DL (8.8-10.2); CREATININE FOR GFR 4.24 MG/DL (0.70-1.30); GLOMERULAR FILTRATION RATE 17.3 (>35); PHOSPHORUS LEVEL 3.4 MG/DL (2.5-4.9); TOTAL PROTEIN 4.8 GM/DL (6.4-8.2)
[2016-09-28] MEDS: VANCOMYCIN ORAL SOL 250MG/5ML ORAL SYRINGE PO SCH ×3 (06:10→17:22)
[2016-09-28] MEDS: HEPARIN SOD (PORCINE) 5000 UNITS/ML VIAL SQ SCH ×3 (06:10→21:40)
[2016-09-28] MEDS: metroNIDAZOLE 500 MG in APPROPRIATE DILUENT 1 EA IV SCH ×3 (06:10→21:39)
[2016-09-28 06:30] LABS: BANDS 3 % (< 11); HYPOCHROMASIA 1+
[2016-09-28 06:31] LABS: CRENATED RBC 1+
[2016-09-28 06:32] LABS: NUCLEATED RED BLOOD CELL 1 % (0-0)
[2016-09-28 06:33] LABS: DOHLE BODIES 1+; POLYCHROMASIA 1+
[2016-09-28] MEDS: HumaLOG INSULIN (NovoLOG) PER UNIT SC SCH ×4 (07:30→21:00)
[2016-09-28] MEDS ORDERED: SODIUM CHLORIDE 0.9% 1000 ML IV ONE (07:30)
[2016-09-28] MEDS: LACTOBACILLUS ACIDOPHILUS CAP (BACID) PO SCH ×3 (08:00→17:22)
--- NOTE | 2016-09-28 09:07 | REP ---
AP PORTABLE CHEST : 09/28/1978 06:50 a.m. Clinical history. [place]-Swathi catheter. COMPARISON: 09/27/2016, 09/25/2016. FINDINGS: Lungs are quite hypoinflated. There is extensive bilateral heavily calcified pleural plaquing left greater than right. Bibasilar atelectasis noted with some blunting of CP angles that may reflect some superimposed effusion versus chronic scarring. Some patchy atelectasis or infiltrate in the right perihilar region. There is a right subclavian catheter with a [place]-Swathi tip appearing to advance into the descending branch of the right pulmonary artery. No other interval change. Signed by Juan Gaitan MD 09/28/2016 09:16 A
[2016-09-28] MEDS: ASPIRIN 81 MG ENTERIC TAB PO SCH (10:28)
[2016-09-28] MEDS: PANTOPRAZOLE 40MG INJ (PROTONIX) (C9113) IV SCH (10:28)
--- NOTE | 2016-09-28 13:51 | IPN ---
DATE: 09/28/2016 SUBJECTIVE: The patient was seen and examined today morning at the bedside in the intensive care unit (ICU). He continues to be on BiPAP. The patient is still on Levophed infusion at 4 mcg. He was given one dose of normal saline 500 mL IV bolus because of central venous pressure less than 8. At this time, his CVP is around 13. His mean arterial pressure is about 65. He started making a small amount of urine. His current urine output is around 12 mL per hour. His leukocytosis is improving. REVIEW OF SYSTEMS: The patient denies any fever, chills, rigors. He denies any chest pain. He does report some shortness of breath. He is wearing BiPAP at this time. He denies any pain in the abdomen, constipation. He does report diarrhea is improving slightly as compared with yesterday. The rest of the review of systems is negative. OBJECTIVE: VITAL SIGNS: Temperature 97.7 degree Fahrenheit, blood pressure is 106/56, mean arterial pressure is 73, pulse is 87, respiratory rate 18, saturating 89% on nasal cannula at 4 liters. INTAKE AND OUTPUT: Total intake since midnight is 326 mL. Urine output since overnight is 106 mL. The patient is still oliguric. Weight on the bed scale is 93.2 kg. GENERAL: The patient is awake, alert, oriented times three. Lying in bed. Wearing BiPAP at this time. HEAD AND NECK EXAM: Extraocular muscles intact. Pupils equal, round, reactive to light. Neck is supple. There is no jugular venous distention (JVD). Mucous membranes are moist. CARDIOVASCULAR: S1, S2, irregular heart rate. No murmur, rub or gallop. RESPIRATORY: Decreased breath sounds at the bases and mild crepitations at the left base on deep inspiration. ABDOMEN: Soft, distended, nontender. No ascites. Positive bowel sounds. No organomegaly. EXTREMITIES: He has trace edema of the bilateral lower extremities. Pulses are 2+. CENTRAL NERVOUS SYSTEM: No focal neurologic deficit. Power is 5/5 in all extremities at this time. SKIN: No rashes. No ulcers. LINES: The patient has a right subclavian Tas[place]-Swathi catheter. LABORATORY DATA: CBC showed a WBC of 12.6, hemoglobin is 8.4, platelets are 104. Venous blood gas done today in the morning showed pH was 7.28. BMP done this morning showed sodium 145, potassium 4, chloride 111, bicarbonate 23, BUN 69, creatinine is 4.2, calcium is 7.4, phosphorous is 3.4, albumin is 1.9. MICROBIOLOGY: Sputum culture is pending. Stool for Clostridium (C.) difficile was positive two days ago. IMAGING: A chest x-ray was done this morning which showed hyperinflated lungs with bilateral calcified pleural plaques, blunting of the bilateral costophrenic angles. Renal ultrasound was done yesterday, which showed right kidney was unremarkable. They could not see the left kidney; however, the CAT scan done one day earlier showed normal size of both kidneys. CURRENT MEDICATIONS: Patient's current medications are all reviewed by me. He continues to be on intravenous Levophed infusion, IV Flagyl and oral vancomycin. There is no other change in the medications at this time, as compared with yesterday. ASSESSMENT: 85-year-old male with past medical history of diastolic congestive heart failure, severe pulmonary hypertension, obstructive sleep apnea this time admitted this time to intensive care unit (ICU) with septic shock secondary to C. difficile colitis and hypoxic respiratory failure requiring BIPAP. Nephrology service following the patient for management of acute oliguric renal failure. PLAN: 1. Acute oliguric renal failure. The patient continues to be oliguric at this time. He is still in septic shock and still requiring pressors at this time. Continue to maintain a mean arterial pressure of about 65. Continue to monitor central venous pressure every 6 hours, and he should get IV fluid boluses for central venous pressure less than 8. I am a little but cautious with IV fluid hydration in this patient because he is oliguric and he is in respiratory distress. If he gets overloaded, then he would need to be intubated. The patient does not need any hemodialysis at this time because his electrolytes are acceptable at this time. He does not have any metabolic acidosis. There are no signs of uremia. 2. Septic shock secondary C. difficile colitis. Patient is currently on Levophed infusion. His mixed venous oxygen is around 60 at this time. Mean arterial pressure was around 70 this morning. Continue intravenous Flagyl and oral vancomycin. IV fluid boluses only as needed for CVP less than 8. 3. Atrial fibrillation with rapid ventricular rate. Patient's heart rate is better controlled today. He is status post IV Digoxin yesterday. He has already been started on Coumadin. INR is not checked today. 4. Mixed respiratory and metabolic acidosis. Patient continues to be on BiPAP as per pulmonary service. His venous blood gas pH has improved to 7.28 at this time. There is no need of intravenous bicarbonate administration at this time. Serum bicarbonate level is 23 on this morning's laboratories. 5. History of diastolic congestive heart failure and severe pulmonary hypertension. Continue to maintain a CVP between 8 to 12. Continue to check CVP every six hours. Patient has a Tasley-Swathi catheter as well and we are measuring the cardiac output and mixed venous oxygen through the Tasley-Swathi. The rest of the management and recommendations as per pulmonary critical care services. Plan of care was discussed with the patient's RN at the bedside and with the hospitalist team, Dr. Howe, this morning.
--- NOTE | 2016-09-28 17:05 | IPN ---
DATE: 09/28/2016 SUBJECTIVE: The patient is seen and examined in the room today. The patient is on bilevel positive airway pressure (BiPAP) and pressor. The patient is alert and awake, able to follow commands. The patient is able to answer questions. No overnight events are reported. The patient's mean arterial pressure (MAP) is being maintained with pressor. OBJECTIVE: VITAL SIGNS: Pulse is 94, respirations 18, blood pressure is 111/58, oxygen saturation is 95% with NIPPV with 30% FiO2. GENERAL: No sign of acute distress. Alert and oriented times three. Able to follow commands. HEENT: BiPAP mask in place. Normocephalic, atraumatic. CARDIOVASCULAR: Positive S1, S2, regular rate, rate is running around 80 to 100. Sinus rhythm. RESPIRATORY: Decreased breath sounds. No wheezes appreciated. Positive bilateral crackles. ABDOMEN: Obese, soft, nontender, nondistended. EXTREMITIES: Positive bilateral lower extremity edema. No sign of cyanosis. LABORATORY DATA: WBC is 12.6, hemoglobin 8.4, hematocrit 27.4, platelet count is 104. Sodium 145, potassium is 4.0, chloride is 111, carbon dioxide 23, BUN 69, creatinine 4.24, GFR is 17.3, fasting glucose is 119, calcium is 7.4, phosphorous 3.4, total bilirubin is 0.8, AST 27, ALT is 21, alkaline phosphatase 83, lactate dehydrogenase is 284, total CK is 30, total protein is 4.8. Microbiology: Sputum culture is pending. ASSESSMENT AND PLAN: 1. Septic shock. The patient has been on the pressors. Mean arterial pressure (MAP) is maintained. The patient has a [place]-Swathi catheter in place. We appreciate the assistance from the senior front end engineer and camera supervisor on the case. The patient is getting intermittent IV fluids. Infectious disease specialist has been also consulted to assist on the Clostridium difficile management. Vancomycin is increased to 250 mg by mouth every 6 hours. The patient is also taking IV Flagyl every 8 hours. 2. Clostridium difficile colitis. Infectious disease specialist has been consulted. The patient is on oral vancomycin and IV Flagyl. Dose is being adjusted. 3. Respiratory failure secondary to septic shock. The patient is currently on BiPAP. 4. Renal failure secondary to acute tubular necrosis (ATN) from septic shock and recent nonsteroidal anti-inflammatory drug (NSAID) use. Continue to follow the camera supervisor's recommendations. 5. History of diastolic congestive heart failure. The patient currently has septic shock. The patient required fluid resuscitation. 6. Severe pulmonary hypertension. On BiPAP. Has a [place]-Swathi catheter. Continue to monitor wedge pressures. 7. History of obstructive sleep apnea (ELBA). No CPAP at home. Currently the patient is on BiPAP. 8. History of chronic hypoxic respiratory failure. 9. History of prostate cancer, status post surgery and radiation. 10. History of restrictive lung disease. 11. Gastroesophageal reflux disease, on Protonix. 12. History of spinal stenosis. 13. History of anemia. No sign of acute bleeding. 14. Deep vein thrombosis (DVT) prophylaxis. On heparin. MTDD
[2016-09-28] MEDS ORDERED: LACTATED RINGER'S 1000 ML IV ONE (18:30)
--- NOTE | 2016-09-28 18:49 | CCN ---
DATE: 09/28/2016 NOTE: Mr. Navarro remains critically ill with hypotension requiring vasopressor support that is felt in part secondary to sepsis, acute hypercapnic and hypoxemic respiratory failure that is in part secondary to loss of metabolic compensation, and oliguria with acute kidney injury. The initiating event was felt to be Clostridium difficile diarrhea. Overnight, he has done reasonably well. He was on 4 mcg per kilogram per minute of Levophed and over the course of today, that has been weaned to 2 mcg per kilogram per minute. He has tolerated noninvasive mechanical ventilation to assist in his respiratory effort given his loss of compensation. Of note, his discharge bicarbonate level from his admission 08/08/2016 was 40, and he currently is at 23. Today, he denies any significant symptoms, though overall he does not feel well. He is not complaining of a cough or chest pain. No wheezing. He continues to have generalized abdominal discomfort and continued diarrhea. Unfortunately, his urine output has not picked up significantly, and his creatinine remains elevated over 4. OBJECTIVE: PHYSICAL EXAMINATION: General: Mr. Navarro is lying in bed in no acute distress, and he is synchronous with a noninvasive mechanical ventilator. He is able to sit up reasonably well when requested. Vital Signs: Temperature 97.7 with a maximum temperature (T max) of 98.4, pulse 87, respiratory rate 18, blood pressure 106/56 with a mean arterial pressure (MAP) of 73. SpO2 was 95% on NIMV at 18 over 6 on an FiO2 of 0.3. On 4 liters by nasal cannula, his saturation is 89%. HEENT: Anicteric, pupils equal, reactive to light, nares are normal, pharynx not examined secondary to full face mask. Neck: Supple, without jugular venous distention (JVD), without thyromegaly or masses. Trachea is midline. Lungs: Symmetric excursion, generalized diminished air entry. No wheeze, rhonchi or crackle on tidal excursion. Mildly prolonged expiratory phase. No accessory muscle usage or retractions. Cardiovascular: Regular rate and rhythm with a normal S1, S2. No murmur, rub, or gallop appreciated. Abdomen: Positive bowel sounds, diffuse tenderness. No hepatosplenomegaly or masses. No rebound or guarding. Extremities: Warm and well perfused. No clubbing or cyanosis. Trace bilateral lower extremity edema, 2+ pulses. LABORATORY DATA: Chemistry shows sodium 145, potassium 4.0, chloride 111, bicarbonate 23, anion gap 11, BUN 69, creatinine 4.2, glucose 119, calcium 7.4, phosphorus 3.4, direct bilirubin 0.8, AST 27, ALT 21, alkaline phosphatase 83, LDH 284, CK 30, total protein 4.8, albumin 1.9. CBC showed a hemoglobin of 8.4, hematocrit 27.4, platelet count 104,000, white blood cell count 12,600 (down from 34,100 yesterday), with a differential of 85% neutrophils, 3% bands, 5% lymphocytes. His mixed venous saturation was 68%. His last set of outputs from 10:00 a.m. showed a CVP of 13, mean PA 25, wedge 14 , cardiac output 6.5. Cardiac index 3.2, SVR 1392. I reviewed his chest x-ray as well as the report from earlier today that actually showed known bilateral calcified pleural plaquing, greater on the left than the right. There is some blunting of the costophrenic angles and some atelectasis. A [place] is in place. There is no significant infiltrates. Yesterday's intake and output showed 4208 in and 142 out, making him positive 4066. Thus far today, he has had 326 in and 106 out, making him positive 220. Yesterday, he had five bowel movements and today two bowel movements. Weight is listed at 93.2 kg. IMPRESSION: 1. Acute and chronic hypercapnic respiratory failure with the acute problem predominantly secondary to loss of compensation (baseline bicarbonate is around 40). 2. Hypotension requiring Levophed. In part, felt secondary to sepsis, although his lactic acid was never significant. He did have a low SVR that has now markedly improved. 3. Sepsis felt secondary to Clostridium difficile colitis. 4. Oliguria. [place] secondary to acute tubular necrosis (ATN). Appreciate nephrology's input in management of fluids. 5. Clostridium difficile colitis. Appreciate infectious disease (ID) input. 6. Pulmonary hypertension. 7. Atrial fibrillation. 8. Obstructive sleep apnea, not treated as an outpatient. 9. Restrictive lung disease. 10. Deep vein thrombosis (DVT) prophylaxis with sequential compression devices (SCDs), thromboembolism deterrents (TEDs) and subcutaneous heparin. 11. Stress ulcer prophylaxis with proton pump inhibitor. 12. Infectious disease. Oral vancomycin and IV metronidazole. 13. Nutrition. Clear liquid diet. RECOMMENDATIONS: 1. I spoke with Dr. Pennington regarding his plan for fluid management. He is concerned that too much fluid would push him into the need for dialysis and would like to try to give him another 48 hours or so to open his kidneys on his own. I discussed with him that my concern was his pulmonary hypertension and rather than having a CVP range of 8 to 12, I preferred 10 to 12 and he was in agreement with this change. 2. We also discussed resuscitation if any is needed. We agreed on 500 mL boluses. I prefer lactated Ringer's given that he is starting to develop hyperchloremic metabolic acidosis. 3. Will continue to use intermittent noninvasive mechanical ventilation. His respiratory failure is more due to loss of compensation than of a respiratory etiology. 4. Continue antibiotics as per Dr. Berger. 5. If he continues to do well overnight, will advance his diet accordingly tomorrow. Critical care time: 50 minutes not including procedure time. [facility]
[2016-09-28] MEDS: LATANOPROST 0.005% OPHTH SOLN 2.5 ML OU SCH (21:40)
[2016-09-29] VITALS (52 sets, daily range): BP systolic 70–157; BP diastolic 43–77; O2SAT 96–97
[2016-09-29] MEDS: VANCOMYCIN ORAL SOL 250MG/5ML ORAL SYRINGE PO SCH ×4 (00:20→17:31)
[2016-09-29] MEDS: HEPARIN SOD (PORCINE) 5000 UNITS/ML VIAL SQ SCH (06:05)
[2016-09-29] MEDS: metroNIDAZOLE 500 MG in APPROPRIATE DILUENT 1 EA IV SCH ×3 (06:05→21:26)
[2016-09-29 06:31] LABS: DIFF SLIDE NUMBER 20; MEAN CORPUSCULAR HEMOGLOBIN 28.6 pg (27.0-33.0); MEAN CORPUSCULAR HGB CONC 29.4 g/dl (32.0-36.5); MEAN CORPUSCULAR VOLUME 97.2 fl (80.0-96.0); RED CELL DISTRIBUTION WIDTH 16.5 % (11.5-14.5)
[2016-09-29 06:35] LABS: ALBUMIN 1.9 GM/DL (3.2-5.2); ALBUMIN/GLOBULIN RATIO 0.79 (1.00-1.93); BILIRUBIN,TOTAL 0.8 MG/DL (0.2-1.0); CALCIUM LEVEL 7.3 MG/DL (8.8-10.2); CREATININE FOR GFR 3.96 MG/DL (0.70-1.30); GLOMERULAR FILTRATION RATE 18.7 (>35); PHOSPHORUS LEVEL 3.7 MG/DL (2.5-4.9); POTASSIUM SERUM 4.2 MEQ/L (3.5-5.1); TOTAL PROTEIN 4.3 GM/DL (6.4-8.2)
[2016-09-29 06:48] LABS: PLATELET COUNT, AUTOMATED 80 k/mm3 (150-450)
--- NOTE | 2016-09-29 06:50 | CR ---
DATE OF CONSULTATION: 09/28/2016 I was asked to consult by Dr. Howe for evaluation of severe Clostridium (C) difficile colitis with acute renal failure and septic shock. HISTORY OF PRESENT ILLNESS: Mr. Navarro is a pleasant 85-year-old gentleman who was admitted in July after when he developed pneumonia. The patient had broad-spectrum antibiotics for 5 days and then developed diarrhea. The patient states since he has had this diarrhea, but prior to admission for about a week he was not eating much except for dry toast. He was having severe diarrhea, watery. He denied having any fever or chills. He also states that after discharge from the hospital he was [facility] and he was given more antibiotics. He is not sure of what exact antibiotic he was given. He denied any melena or hematochezia. He stated that he is feeling better. His diarrhea has improved since admission. He would like to sit at the edge of the bed to help with his indigestion and he would like to drink some of his liquid diet that he was given for breakfast. He denied any chest pain, but did have some shortness of breath. No dizziness, lightheadedness or cough. The patient had a poor appetite, but it is improving. On admission, he was fairly hypotensive in acute renal failure and was started on Levophed. Today, his Levophed dose has decreased. PAST MEDICAL HISTORY: Significant for chronic hypoxic respiratory failure for which he uses oxygen at 2 liters, severe pulmonary hypertension, echocardiogram done July 2016, right ventricle systolic pressure 71, obstructive sleep apnea not on continuous positive airway pressure (CPAP), diastolic heart failure, prostate cancer status post surgery and radiation, restrictive lung disease, gastroesophageal reflux disease, atrial fibrillation not [facility], diverticulosis, spinal stenosis, claudication, anemia of chronic disease, and glaucoma. PAST SURGICAL HISTORY: Prostatectomy, bilateral knee replacement, bilateral inguinal hernia repair, bilateral cataract surgery. ALLERGIES: CONTRAST MEDIA DYE, no known drug allergies. MEDICATIONS: - vancomycin 250 mg by mouth every 6 hours - Protonix 40 mg intravenously (IV) daily - insulin sliding scale - Levophed at 4 mcg - aspirin 81 mg daily - probiotics one tablet by mouth with meals - metronidazole 500 mg IV every 8 hours - heparin 5000 units subcutaneously every 8 hours - Xalatan one drop both eyes nightly LABORATORY DATA: White count on admission was 27,000. On 09/27, was 34,000. Today is down to 12.6, which is marked improvement. Hemoglobin 8.4, hematocrit 27.4, platelets 104, which has dropped from 181 on admission. Sodium 145, potassium 4, chloride 111, bicarbonate 23, BUN 69, creatinine 4.24. His normal creatinine is around 1 from previous admission, glucose 119, calcium 7.4, AST 27, ALT 21, alkaline phosphatase 83, LDH 284, CPK 30, albumin 2. Blood cultures two sets are negative after 72 hours from 09/25. Methicillin-resistant Staphylococcus aureus (MRSA) screen is negative. C. difficile was positive. NAP1 presumptive negative and sputum is a good specimen with few white cells. Culture is pending. IMAGING STUDIES: Chest x-ray shows lungs are quite hyperinflated, extensive bilateral heavily calcified pleural plaquing, left greater than right, right basal atelectasis, effusions, some patchy atelectasis or infiltrate in the right perihilar region. PHYSICAL EXAMINATION: Vital signs: Temperature is 95.9, pulse 98-127, respirations 22, blood pressure 91/54, oxygen saturation 95% on 4 liters nasal cannula. He has been afebrile throughout the admission. Heart: Normal S1, S2. Irregularly irregular. Systolic ejection murmur 2/6. Lungs: Diminished breath sounds at the bases. Abdomen: Soft, mildly tender diffusely. No rebound. No hepatosplenomegaly. Extremities: No clubbing, cyanosis or edema. No calf tenderness. Long toenails. +2 dorsalis pedis pulse. Oropharynx dry mucosa. No thrush. No lesions. Neck is supple. No jugular venous distention (JVD). No bruits. Pupils equal and reactive, anicteric. Neurologic exam: Alert and oriented times three. He can move all extremities and sit at the edge of the bed. IMPRESSION: This is an 85-year-old gentleman who was admitted at the end of July with pneumonia and was treated with broad-spectrum antibiotics. Since then, he has had diarrhea which has worsened over the past month. The patient is admitted in acute renal failure and severe septic shock. He is on appropriate antibiotics with vancomycin that was increased from 125 to 250 mg every 6 hours, intravenous (IV) Flagyl 500 mg every 8 hours, probiotics three times a day and pressors. He has oliguric renal failure and still requiring pressors, somewhat concerning as the patient has developed some fluid overload and is somewhat short of breath. PLAN: Continue same management. Agree with current treatment. Will continue to monitor CBC and his kidney function. Hopefully, he will not need dialysis. Avoid any antibiotics. I doubt his pulmonary symptoms and dyspnea are related to pneumonia. They are more related to fluid overload and I would definitely avoid antibiotics for pneumonia unless the patient has developed a fever or worsening white count.
[2016-09-29 06:52] LABS: ANISOCYTOSIS 1+; HYPOCHROMASIA 2+; NUCLEATED RED BLOOD CELL 2 % (0-0)
[2016-09-29] MEDS: HumaLOG INSULIN (NovoLOG) PER UNIT SC SCH ×4 (07:30→21:00)
[2016-09-29] MEDS: LACTOBACILLUS ACIDOPHILUS CAP (BACID) PO SCH ×3 (08:00→17:31)
[2016-09-29 09:09] LABS: INR 1.33
[2016-09-29] MEDS: PANTOPRAZOLE 40MG INJ (PROTONIX) (C9113) IV SCH (09:54)
[2016-09-29] MEDS: ASPIRIN 81 MG ENTERIC TAB PO SCH (09:54)
--- NOTE | 2016-09-29 11:21 | REP ---
Portable chest x-ray: Sitting AP view. History: [place]-Swathi catheter placement. Comparison chest x-ray September 28, 2016. Findings: There is pleural type opacity at the bases indicating bilateral pleural effusions. A right subclavian line is seen transmitting the [place]-Swathi catheter. The tip of the catheter is noted in the right lower lobe pulmonary artery medially overlying the heart border. There is bilateral calcific pleural plaquing. Poor penetration of the film. No new infiltrate. Signed by Erasto Ivan MD 09/29/2016 01:14 P
[2016-09-29] MEDS ORDERED: FUROSEMIDE 100 MG/10 ML VIAL (J1940) IV ONE (12:00)
--- NOTE | 2016-09-29 14:03 | IPN ---
DATE: 09/29/2016 SUBJECTIVE: Patient was seen and examined at the bedside this morning in the intensive care unit (ICU). He continues to be on bilevel positive airway pressure (BiPAP) at this time. Last 24 hour events were noted. Patient got another bolus of 500 mL of Ringer's lactate yesterday in the evening. His central venous pressure (CVP) is stable, above 10 at this time. His Levophed infusion has been stopped. Patient remains to be oliguric at this time. Urine output is around 10 mL an hour, however his creatinine remains stable and his electrolytes are within acceptable limits. REVIEW OF SYSTEMS: Patient denies any fever, chills, or rigors but he reports being very weak. He denies any chest pain but he does report shortness of breath requiring BiPAP. He denies any pain in abdomen, constipation, nausea, vomiting, and he reports that his diarrhea is improving. Rest of review of systems is negative. OBJECTIVE: VITAL SIGNS: Temperature 96.8 degrees Fahrenheit, blood pressure 105/54, pulse 79, respiratory rate 20, saturating at 97% on 30% FiO2 via BiPAP. PHYSICAL EXAMINATION: GENERAL: Patient is awake, alert, oriented times three, laying in bed, feeling weak and tired and fatigued. He is wearing BiPAP at this time. HEAD and NECK: Extraocular muscles intact, pupils equally round and reactive to light. Mucous membranes are moist. Patient was able to communicate with me after taking off the BiPAP. Neck is supple, there is no jugular venous distention (JVD). CARDIOVASCULAR: S1, S2, irregular heart rate. No murmur, rub, or gallop. RESPIRATORY: Decreased breath sounds bilaterally at the bases and there were mild crepitations on deep inspiration. ABDOMEN: Soft, distended, nontender. Positive bowel sounds. No ascites. No organomegaly. EXTREMITIES: Trace edema of the bilateral lower extremities. Pulses are 2+. No clubbing or cyanosis. CENTRAL NERVOUS SYSTEM (POST FRAMER): No focal neurological deficit. Power is 5/5 in all extremities. SKIN: No rashes or ulcers. LINES: Patient has a right subclavian [place]-Swathi catheter. LABORATORY REVIEW: CBC showed WBC of 6, hemoglobin 7.9, platelets 80, INR 1.33. BMP showed sodium 145, potassium 4.2, chloride 113, bicarbonate 21, BUN 76, creatinine 3.9, calcium 7.3, phosphorous 3.7, albumin 1.9. Microbiology: Sputum for gram stain showed moderate yeast-like organisms and moderate gram-negative rods. IMAGING: A chest xray done this morning showed bilateral pleural effusions. There were no new infiltrates. CURRENT MEDICATIONS: Patient's medications were all reviewed by me. His Levophed has been stopped. There is no other change in the medications today as compared with yesterday and there was one IV Ringer's lactate fluid bolus given yesterday and amount was 500 mL. ASSESSMENT: 85-year-old male with past medical history of diastolic congestive heart failure, severe pulmonary hypertension, obstructive sleep apnea, admitted to intensive care unit (ICU) at this time with septic shock secondary to Clostridium (C) difficile colitis and hypercapnic respiratory failure requiring bilevel positive airway pressure (BiPAP). Nephrology service following the patient for management of acute oliguric renal failure. PLAN: 1. Acute oliguric renal failure. Patient remains to be oliguric at this time, despite maintaining a mean arterial pressure above 65, his volume status is well-optimized. His sepsis is improving, however given his oliguria, I am going to try one dose of Lasix 60 mg IV and see if he responds to the diuretics. If patient does not respond to diuretics by tomorrow, then we shall have to plan hemodialysis procedure for volume management. Otherwise, patient's electrolytes are within acceptable limits, there is no metabolic acidosis at this time, we can wait for patient's renal function to improve. 2. Septic shock secondary to Clostridium (C) difficile colitis. Patient is significantly improving. Levophed drip has been stopped. He continues to be on IV Flagyl and oral vancomycin. We are trying to maintain a mean arterial pressure (MAP) of between 10-12. Continue the IV fluid boluses as needed for a mean arterial pressure (MAP) less than 10. 3. Mixed respiratory and metabolic acidosis. Patient's serum bicarbonate is 21. He is requiring bilevel positive airway pressure (BiPAP) at this time for hypercapnic respiratory failure. Patient is stable at this time. Rest of the management is as per pulmonary service. 4. Bilateral pleural effusions. Patient has pleural effusions bilaterally in the xray. Consider doing a pleural tap if patient's symptoms do not improve. Management is as per pulmonary critical care service and they are already on board. 5. Diastolic congestive heart failure and severe pulmonary hypertension. Patient has a [place]-Swathi catheter and mixed venous oxygen is above 60% at this time. Central venous pressure (CVP) is running above 10. Lasix 60 mg IV times one dose today and continue to monitor 24 hour intake and output and daily weights. 6. Anemia. Patient's hemoglobin is 7.7 today. If patient's hemoglobin drops to less than 7, then he can get a unit of packed red blood cells (PRBC) transfusion. I would await giving him blood at this time given his oliguric state and bilateral pleural effusions.
[2016-09-29] MEDS: NOREPINEPHRINE BITARTRATE 8 MG in D5W 500 ML IV SCH (15:00)
--- NOTE | 2016-09-29 15:09 | RO ---
DATE OF PROCEDURE: 09/29/2016 PHYSICIAN PERFORMING THE PROCEDURE: Dr. Rachel Giron HARVESTER OPERATOR: Flavio, registered nurse PREOPERATIVE DIAGNOSIS: Septic shock. POSTOPERATIVE DIAGNOSES: Septic shock. PROCEDURE PERFORMED: Right internal jugular (IJ) triple-lumen central line. SEDATION: None. VENTILATION: Nasal cannula 3 liters. ANESTHETIC: 1% local lidocaine. ESTIMATED BLOOD LOSS: 10 mL. DESCRIPTION OF PROCEDURE: The patient was placed in supine position. The patient's right side of the neck was cleaned with ChloraPrep and covered in the usual manner sterilely. Ultrasound probe covered with sterile cover was used. 1% lidocaine was injected with ultrasound guidance. Subsequently, the needle was inserted. A flash of blood was obtained. Wire was inserted through the needle. The needle was removed. Wire position was confirmed with ultrasound. Subsequently, the site was dilated. A triple-lumen central line was inserted over guidewire. The guidewire was subsequently removed, and all three ports of the triple-lumen central line were flushed. The line was secured with clamps and three stitches. Dressing was placed. X-ray was obtained to confirm line position. The patient tolerated the procedure with no complications.
--- NOTE | 2016-09-29 16:54 | REP ---
Portable chest, single AP view, the patient supine: Comparisons are the study earlier today, 09/28/2016, 09/27/[address] of 08/03/2016. A large bulky bilateral calcific pleural plaques are again noted. The the hemidiaphragms and lung bases are obscured compatible with bilateral pleural effusions and / or infiltrates, similar to the study earlier today and the study yesterday. Cardiomegaly is suspected, however, there is artifact from positioning. Central venous catheter is again noted, however, the previous right subclavian catheter has been removed and there is now a right IJ central venous catheter. There are is no pneumothorax. Impression: Bibasilar increased radiodensity compatible with bilateral effusions and / or infiltrates. Probable cardiomegaly. Bullae calcific pleural plaque. Signed by Flavio Johns MD 09/29/2016 04:46 P
[2016-09-29] MEDS: PERCOCET 5MG/325MG TAB PO PRN (17:32)
[2016-09-29] MEDS: LATANOPROST 0.005% OPHTH SOLN 2.5 ML OU SCH (21:26)
[2016-09-30] VITALS (50 sets, daily range): BP systolic 61–155; BP diastolic 33–69
[2016-09-30] MEDS: VANCOMYCIN ORAL SOL 250MG/5ML ORAL SYRINGE PO SCH ×4 (00:02→18:00)
--- NOTE | 2016-09-30 01:14 | IPN ---
DATE OF SERVICE: 09/29/2016 SUBJECTIVE: The patient is seen and examined in the room today. The patient is alert and awake, able to follow commands. The patient is still on the bilevel positive airway pressure (BiPAP). There was a trial of weaning the patient off the BiPAP and later patient has been using nasal cannula and oxygen saturations have been maintained. Per nursing staff, in the morning patient had a trial of weaning off the pressor. Initially, patient's blood pressure has been maintained with a mean arterial pressure (MAP) greater than 65; however, later patient started having decreased level of the blood pressure and the pressor had to be reinitiated. OBJECTIVE: VITAL SIGNS: Temperature 96.8, pulse is 79, blood pressure is 113/57, pulse oximetry is 97% with NIPPV with 30% FiO2. GENERAL: Patient is alert and awake, follows commands. HEENT: In the morning, patient has BiPAP in place and patient was switched to the nasal cannula in the afternoon. Normocephalic. CARDIOVASCULAR: Irregular, irregular with a heart rate running between 90 and 100. RESPIRATORY: Decreased breath sounds bilaterally, especially at he base. Positive crackles. No significant wheezes appreciated. ABDOMEN: Soft, distended, nontender. Bowel sounds present. EXTREMITIES: Bilateral lower extremity edema. No sign of cyanosis. LABORATORY DATA: WBC is 6, hemoglobin 7.7, hematocrit 26.2, platelet count is 80. Sodium 145, potassium is 4.2, chloride is 113, carbon dioxide 21, BUN 76, creatinine 3.96, GFR is 18.7, fasting glucose is 104, calcium is 7.3, phosphorous 3.7, total bilirubin is 0.8, AST 54, ALT is 27, alkaline phosphatase 77, lactate dehydrogenase is 289, total CK is 24, total protein is 4.3, albumin 1.9. Triglycerides 51, cholesterol 58. PT is 16.6, INR is 1.33, PTT is 69.4. ASSESSMENT AND PLAN: 1. Septic shock secondary to Clostridium (C) difficile. The patient has failed to be weaned off the pressors. Patient is currently still on pressors to maintain mean arterial pressure (MAP) above 65. The patient's [place]-Swathi catheter was replaced with an IJ central line in the afternoon. Will continue to check with CVP. Per specialist's recommendation, patient may benefit with fluid resuscitation when CVP is greater than 10. Patient is currently on oral vancomycin and intravenous (IV) Flagyl. Patient will be able to wean off the bilevel positive airway pressure (BiPAP). 2. C. difficile colitis. Infectious disease has been consulted. The patient is on oral vancomycin and IV Flagyl. 3. Respiratory failure secondary to septic shock. The patient's BiPAP is weaned off. Currently patient is on nasal cannula support. 4. Renal failure secondary to acute tubular necrosis (ATN) and from septic shock and nonsteroidal anti-inflammatory drug (NSAID) use. Currently patient still has minimal urinary output. Appreciate nephrology's recommendations. 5. History of diastolic congestive heart failure. The patient currently has septic shock on pressor. Fluid is given when the CVP is below 10. 6. Severe pulmonary hypertension. Continue to monitor. 7. History of obstructive sleep apnea (ELBA). Patient denies use of continuous positive airway pressure (CPAP) at home. Patient is on oxygen support at this moment. 8. Chronic hypoxic respiratory failure. 9. History of prostate cancer status post surgery and radiation. 10. History of restrictive lung disease. 11. Gastroesophageal reflux disease, on Protonix. 12. History of spinal stenosis. 13. Thrombocytopenia. Patient's [place]-Swathi catheter has been removed. Will follow. Heparin-induced platelet antibody count has been ordered. 14. Deep vein thrombosis (DVT) prophylaxis. Due to worsening thrombocytopenia, heparin has been discontinued. Patient is on thromboembolism deterrents (TEDs), sequential compression device (SCD). 15. Gastrointestinal (GI) prophylaxis. On Protonix.
[2016-09-30] MEDS: metroNIDAZOLE 500 MG in APPROPRIATE DILUENT 1 EA IV SCH ×3 (05:18→22:00)
[2016-09-30 05:39] LABS: DIFF SLIDE NUMBER 11; MEAN CORPUSCULAR HEMOGLOBIN 29.1 pg (27.0-33.0); MEAN CORPUSCULAR HGB CONC 29.7 g/dl (32.0-36.5); MEAN CORPUSCULAR VOLUME 97.9 fl (80.0-96.0); RED CELL DISTRIBUTION WIDTH 15.9 % (11.5-14.5); WHITE BLOOD COUNT 4.4 K/mm3 (4.0-10.0)
[2016-09-30 05:40] LABS: PLATELET COUNT, AUTOMATED 66 k/mm3 (150-450)
[2016-09-30 05:54] LABS: ALBUMIN/GLOBULIN RATIO 0.8 (1.00-1.93); BILIRUBIN,TOTAL 0.7 MG/DL (0.2-1.0); CALCIUM LEVEL 7.5 MG/DL (8.8-10.2); CREATININE FOR GFR 3.7 MG/DL (0.70-1.30); GLOMERULAR FILTRATION RATE 20.2 (>35); POTASSIUM SERUM 4.3 MEQ/L (3.5-5.1); TOTAL PROTEIN 4.5 GM/DL (6.4-8.2)
[2016-09-30 06:36] LABS: NUCLEATED RED BLOOD CELL 1 % (0-0)
[2016-09-30 06:37] LABS: ANISOCYTOSIS 1+; HYPOCHROMASIA 3+; SCHISTOCYTES 1+
[2016-09-30 06:38] LABS: BURR CELLS 1+; DOHLE BODIES 1+; TOXIC VACUOLATION 1+
[2016-09-30] MEDS: ASPIRIN 81 MG ENTERIC TAB PO SCH (09:01)
[2016-09-30] MEDS: LACTOBACILLUS ACIDOPHILUS CAP (BACID) PO SCH ×3 (09:01→18:00)
[2016-09-30] MEDS: PANTOPRAZOLE 40MG INJ (PROTONIX) (C9113) IV SCH (09:01)
[2016-09-30] MEDS: HumaLOG INSULIN (NovoLOG) PER UNIT SC SCH ×4 (09:02→21:00)
--- NOTE | 2016-09-30 09:16 | REP ---
Portable chest x-ray: Single view. History: [place]-Swathi catheter. Comparison chest x-ray September 29 2016. Findings: Sitting portable chest x-ray shows moderate cardiomegaly. There is evidence of bilateral pleural effusions again noted, perhaps increased on the right. Extensive calcific pleural thickening is again seen. A right internal jugular venous catheter is seen although the position and its tip cannot be discerned on this film. It is traceable in the region of the superior vena cava. Signed by Erasto Ivan MD 09/30/2016 01:11 P
[2016-09-30] MEDS: PERCOCET 5MG/325MG TAB PO PRN (10:03)
[2016-09-30] MEDS ORDERED: LACTATED RINGER'S 1000 ML IV ONE (12:00)
[2016-09-30 12:35] LABS: MAGNESIUM LEVEL 2.1 MG/DL (1.8-2.4)
[2016-09-30] MEDS: NOREPINEPHRINE BITARTRATE 8 MG in D5W 500 ML IV SCH ×2 (15:00→23:35)
--- NOTE | 2016-09-30 16:48 | IPN ---
DATE: 09/30/2016 SUBJECTIVE: The patient was seen and examined at the bedside today in the morning. He is off of bilevel positive airway pressure (BiPAP) today. Last 24-hour events were noted. The patient was given a dose of Lasix 60 mg intravenous (IV) yesterday. He does respond a little bit to the IV Lasix but he is still oliguric at this time. The patient had to be restarted on Levophed infusion. He is currently on 2 mcg of Levophed at this time. His mean arterial pressure (MAP) was above 65. There were no fluid boluses or IV fluid given since yesterday. His renal function continues to be stable at this time. The patient continues to have loose bowel movements; however, his white cell count is significantly better. REVIEW OF SYSTEMS: The patient denies any fever, chills, rigors. He reports extreme weakness and inability to move around in the bed. He denies any chest pain. He does report some shortness of breath, and patient also reports some loose stools and diarrhea. Rest of review of systems is negative. OBJECTIVE: VITAL SIGNS: Temperature is 97.2 degrees Fahrenheit. Blood pressure is 115/53. Pulse is 91, respiratory rate of 20, saturating 90% on nasal cannula. INTAKE AND OUTPUT: The patient's urine output was 400 mL yesterday. He has made 190 mL of urine so far today since overnight. His is 90 mL negative. Weight in the bed scale is 97.4 kg. PHYSICAL EXAMINATION: GENERAL: The patient is awake, alert, oriented times three, but very weak and lethargic, lying in bed, no apparent distress. HEAD/NECK: Extraocular muscles intact. Pupils equal, round, and reactive to light. Mucous membranes are moist. Neck is supple. The patient has a right internal jugular (IJ) triple-lumen catheter. CARDIOVASCULAR: S1, S2. Irregular rate. No murmur, rub, or gallop. RESPIRATORY: Decreased breath sounds bilaterally at the bases. Otherwise, there were no rales or rhonchi. ABDOMEN: Soft, nontender, nondistended. Positive bowel sounds. The patient has a [place] catheter with dark-color urine in the bag. EXTREMITIES: He has trace edema of the bilateral lower extremities. Pulses are 2+. No clubbing or cyanosis. CENTRAL NERVOUS SYSTEM (LASTING MACHINE OPERATOR BED): No focal neurological deficits. Power is 5/5 in all extremities. SKIN: No rashes or ulcers. LABORATORY DATA: CBC showed a WBC 4.4, hemoglobin 7.8, platelets of 66. BMP showed sodium 146, potassium 4.3, chloride 114, bicarbonate 21, BUN 83, creatinine 3.7. Calcium is 7.5. Phosphorus is 4. Magnesium is 2.1. Albumin is 2. MICROBIOLOGY: No new cultures are available at this time. IMAGING: Chest x-ray done today morning showed moderate cardiomegaly, bilateral pleural effusions, increased on the right. Extensive calcific pleural thickening and there was a central line in the superior vena cava. CURRENT MEDICATIONS: The patient's medications were all reviewed by me. There is no change in the medications as compared with yesterday. He was given a bolus dose of Ringer's lactate 250 mL IV bolus times one. ASSESSMENT: An 85-year-old male with past medical history of diastolic congestive heart failure, severe pulmonary hypertension, obstructive sleep apnea, admitted to intensive care unit (ICU) with septic shock secondary to Clostridium (C.) difficile colitis and hypercapnic respiratory failure requiring bilevel positive airway pressure (BiPAP). Nephrology service following the patient for management of acute oliguric renal failure. PLAN: 1. Acute oliguric renal failure: The patient remains oliguric at this time. He received a dose of Lasix 60 mg IV yesterday. The patient's urine output is between 10 to 15 mL an hour at this time. I would not give more Lasix at this time because the patient is on pressors and central venous pressure (CVP) was around 10. Given the history of severe pulmonary hypertension in the past, I would give him a bolus of Ringer's lactate 250 mL IV times one dose. The patient's electrolytes are otherwise stable at this time. There is no urgent need to start hemodialysis. If patient's urine output does not start improving by tomorrow, then we shall get a tunneled catheter placed and start hemodialysis. 2. Septic shock secondary to C. difficile colitis: The patient continues to be on IV Flagyl and by mouth vancomycin. His white cell count is improved but he continues to require low dose of Levophed at 2 mcg. Weaning off Levophed as per primary team. Continue to give IV fluid support for CVP less than 10. 3. Mixed respiratory and metabolic acidosis: The patient continues to require intermittent use of BiPAP. His serum bicarbonate level is 21. No need to give IV bicarbonate at this time. 4. Bilateral pleural effusions: The patient has bilateral pleural thickening and pleural plaques, and chest x-ray is also showing pleural effusions. The patient also requires BiPAP. Please consider doing a pleural tap in this patient for relief of symptoms. Rest of the management is as per pulmonary team. 5. Anemia. The patient's hemoglobin is around 7.8. If his hemoglobin drops further, he can get a packed red blood cell (PRBC) transfusion.
[2016-09-30] MEDS: NS 500 ML IV SCH (18:36)
--- NOTE | 2016-09-30 20:29 | IPN ---
DATE: 09/30/2016 SUBJECTIVE: Patient is seen and examined in the room today. Patient has been weaned off the bilevel positive airway pressure (BiPAP). Patient is on nasal cannula. Patient was still on the pressor this morning. Patient is complaining about soreness inside the right cheek. No overnight events reported. OBJECTIVE: VITAL SIGNS: Pulse 86, respirations 20, blood pressure 92/50, pulse oximetry 90% with 4 liters nasal cannula. GENERAL: Fatigue. No signs of acute distress. Alert and oriented times three. HEENT: There is some swelling with minor sore inside the right oral mucosa, however no fluctuance is palpated. Extraocular motors grossly intact. CARDIOVASCULAR: Positive S1, S2, irregularly irregular. RESPIRATORY: Decreased breath sounds bilaterally. No wheezes or rhonchi. ABDOMEN: Soft, nontender, nondistended. Bowel sounds present. EXTREMITIES: Trace edema bilaterally. No sign of cyanosis. LABORATORY DATA: WBC 4.4, hemoglobin 7.8, hematocrit 26.3, platelet count 66. Sodium 146, potassium 4.3, chloride 114, carbon dioxide 21, BUN 83, creatinine 3.7, GFR 20.3, fasting glucose 122, calcium 7.5, phosphorous 4, magnesium 2.1, total bilirubin 0.7, AST 67, ALT 37, alkaline phosphatase 78, lactate dehydrogenase 267, total CK 34, total protein 4.5, albumin 2. ASSESSMENT AND PLAN: 1. Septic shock secondary to Clostridium (C) difficile. Patient is still on the pressor this morning. Continue to titrate mean arterial pressure (MAP) above 65. Patient has a central line. Continue to monitor central venous pressure (CVP). Appreciate manager psychiatry and hospital monitor to assist on patient's fluid status. Patient is continued on oral vancomycin and intravenous (IV) Flagyl. Patient has been weaned off the bilevel positive airway pressure (BiPAP). 2. Clostridium (C) difficile colitis. Oral vancomycin has been adjusted by the infectious disease specialist, Dr. Berger, and patient is also on Flagyl. 3. Respiratory failure, secondary to septic shock. Patient is off the bilevel positive airway pressure (BiPAP). Continue on nasal cannula. 4. Renal failure, secondary to acute tubular necrosis (ATN) and from septic shock and nonsteroidal anti-inflammatory drug (NSAID) use. Patient's urine output shows slight improvement. Appreciate nephrology's assistance. 5. Bilateral pleural effusions. 6. Anemia. Patient's hemoglobin and hematocrit have been maintained the same compared to yesterday. Will continue to monitor the patient. 7. Thrombocytopenia. Will continue to follow. Patient had recent [place]-Swathi placement. Heparin-induced antibody level is pending. 8. Deep venous thrombosis (DVT) prophylaxis. On thromboembolism deterrents (TEDs), sequential compression device (SCD). Patient currently has thrombocytopenia.
[2016-09-30] MEDS: LATANOPROST 0.005% OPHTH SOLN 2.5 ML OU SCH (21:00)
[2016-09-30 23:11] LABS: ABG BASE EXCESS -8.5 (-2.0-2.0); ABG HCO3 19.3 MEQ/L (22.0-26.0); ABG PARTIAL PRESSURE CO2 51.3 mmHg (35.0-45.0); ABG PARTIAL PRESSURE O2 186.4 mmHg (75.0-100.0); ABG STANDARD HCO3 17.5 MEQ/L (22.0-26.0); ABG TOTAL CO2 20.9 MEQ/L (23.0-31.0)
[2016-09-30 23:13] LABS: ABG pH (ARTERIAL) 7.193 UNITS (7.350-7.450)
[2016-09-30 23:20] LABS: DIFF SLIDE NUMBER 189; MEAN CORPUSCULAR HEMOGLOBIN 29.6 pg (27.0-33.0); MEAN CORPUSCULAR HGB CONC 30.4 g/dl (32.0-36.5); MEAN CORPUSCULAR VOLUME 97.6 fl (80.0-96.0); RED CELL DISTRIBUTION WIDTH 15.9 % (11.5-14.5); WHITE BLOOD COUNT 3.8 K/mm3 (4.0-10.0)
[2016-09-30 23:21] LABS: PLATELET COUNT, AUTOMATED 71 k/mm3 (150-450)
[2016-09-30 23:47] LABS: ALBUMIN 2.2 GM/DL (3.2-5.2); ALBUMIN/GLOBULIN RATIO 0.79 (1.00-1.93); BILIRUBIN,TOTAL 0.7 MG/DL (0.2-1.0); CALCIUM LEVEL 7.4 MG/DL (8.8-10.2); CREATININE FOR GFR 3.48 MG/DL (0.70-1.30); GLOMERULAR FILTRATION RATE 21.7 (>35); POTASSIUM SERUM 4.1 MEQ/L (3.5-5.1)
[2016-10-01] VITALS (48 sets, daily range): BP systolic 66–173; BP diastolic 36–81
[2016-10-01 00:11] LABS: BANDS 2 % (< 11); EOSINOPHILS 2 % (0-5)
[2016-10-01 00:12] LABS: ANISOCYTOSIS 1+; HYPOCHROMASIA 1+; TARGET CELLS 1+
[2016-10-01 00:13] LABS: CRENATED RBC 1+
[2016-10-01] MEDS: VANCOMYCIN ORAL SOL 250MG/5ML ORAL SYRINGE PO SCH ×4 (00:14→17:16)
[2016-10-01] MEDS ORDERED: VANCOMYCIN HCL 1,000 MG, VIAL MATE ADAPTER 1 EACH in D5W 250 ML IV ONE (01:00)
[2016-10-01] MEDS: PIPERACILLIN/TAZOBACTAM SOD 2.25 GM in D5W MINI-BAG PLUS 50 ML IV SCH ×2 (02:57→13:44)
[2016-10-01 04:52] LABS: DIFF SLIDE NUMBER 13; MEAN CORPUSCULAR HEMOGLOBIN 29.7 pg (27.0-33.0); MEAN CORPUSCULAR HGB CONC 30.7 g/dl (32.0-36.5); MEAN CORPUSCULAR VOLUME 96.7 fl (80.0-96.0); RED CELL DISTRIBUTION WIDTH 16.3 % (11.5-14.5); WHITE BLOOD COUNT 3.8 K/mm3 (4.0-10.0)
[2016-10-01 04:54] LABS: PLATELET COUNT, AUTOMATED 74 k/mm3 (150-450)
[2016-10-01] MEDS: metroNIDAZOLE 500 MG in APPROPRIATE DILUENT 1 EA IV SCH ×3 (05:00→21:14)
[2016-10-01 05:08] LABS: ALBUMIN/GLOBULIN RATIO 0.65 (1.00-1.93); BILIRUBIN,TOTAL 0.8 MG/DL (0.2-1.0); CALCIUM LEVEL 7.5 MG/DL (8.8-10.2); CREATININE FOR GFR 3.29 MG/DL (0.70-1.30); GLOMERULAR FILTRATION RATE 23.2 (>35); PHOSPHORUS LEVEL 2.6 MG/DL (2.5-4.9); POTASSIUM SERUM 4.1 MEQ/L (3.5-5.1); TOTAL PROTEIN 5.1 GM/DL (6.4-8.2)
[2016-10-01 06:17] LABS: BANDS 2 % (< 11); EOSINOPHILS 1 % (0-5); NUCLEATED RED BLOOD CELL 1 % (0-0)
[2016-10-01 06:18] LABS: ANISOCYTOSIS 1+; HYPOCHROMASIA 2+
[2016-10-01 06:19] LABS: SCHISTOCYTES 1+
[2016-10-01] MEDS: HumaLOG INSULIN (NovoLOG) PER UNIT SC SCH ×4 (08:11→21:00)
[2016-10-01] MEDS: PANTOPRAZOLE 40MG INJ (PROTONIX) (C9113) IV SCH (08:12)
[2016-10-01] MEDS: ASPIRIN 81 MG ENTERIC TAB PO SCH (08:12)
[2016-10-01] MEDS: LACTOBACILLUS ACIDOPHILUS CAP (BACID) PO SCH ×3 (08:12→17:16)
--- NOTE | 2016-10-01 08:15 | REP ---
Portable chest x-ray: Single view. History: [place]-Swathi catheter. Comparison study September 30, 2016. Findings: The right internal jugular venous line has been removed. Patient is rotated somewhat to the left. Calcific pleural plaquing is noted bilaterally. No definite new infiltrate. There is some increased density in the left base, question left pleural effusion. Signed by Erasto Ivan MD 10/01/2016 10:17 A
--- NOTE | 2016-10-01 08:29 | REP ---
Portable chest x-ray: Single view. 10:59 p.m. film. History: Hypoxia. Comparison is made with chest x-ray done at 05:30 a.m. on this same day. EKG monitoring electrodes overlie the chest. Right internal jugular venous line is seen. This terminates in the expected location of the superior vena cava. There is extensive bilateral pleural calcific plaquing as before. Slight blunting of the left and right pleural angles is seen suggesting pleural fluid. No new infiltrate. Signed by Erasto Ivan MD 10/01/2016 10:18 A
[2016-10-01] MEDS: NOREPINEPHRINE BITARTRATE 8 MG in D5W 500 ML IV SCH (09:45)
[2016-10-01] MEDS: PERCOCET 5MG/325MG TAB PO PRN (12:17)
--- NOTE | 2016-10-01 13:56 | IPNPDOC ---
Date/Time Seen The patient was seen on 10/01/16 at 13:30. Progress Note DATE OF ENCOUNTER: 10/01/2016 SUBJECTIVE: Mr. Navarro was seen this morning at bedside. While sleeping on BiPAP last night, he became hypotensive and he was restarted on pressors. He has been off pressors since 6 AM. He continues to have orthostatic blood pressures with sitting up. CVP this morning is 11. He reports that he is feeling okay. He continues to have several episodes of diarrhea. Continues to have poor urinary output. He is afebrile and white count is on the lower side. Review of systems is negative for chest pain or pressure, shortness of breath, nausea, vomiting, hematochezia, melena, headache, fever, chills. OBJECTIVE: Vital Signs Date Time Temp Pulse Resp B/P Pulse Ox O2 Delivery O2 Flow Rate FiO2 10/01/16 12:17 18 93 Nasal Cannula 3.0 10/01/16 06:15 89 127/59 30 10/01/16 04:00 97.5 I&O- Last 24 Hours up to 6 AM 10/01/16 06:00 Intake Total 810 ml Output Total 575 ml Balance 235 ml GENERAL: The patient is alert and oriented, in no acute distress. HEENT: Normocephalic, atraumatic. Extraocular muscles are intact. Mucosa appears moist. NECK: Supple. Significant jugular venous distention could not be appreciated. HEART: Positive S1, S2. Irregularly irregular. LUNGS: Diminished breath sounds bilaterally. ABDOMEN: Soft, nontender, nondistended. Positive bowel sounds. No rebound, guarding or rigidity. EXTREMITIES: Mild lower extremity edema. No cyanosis. Positive pedal pulses bilaterally. NEUROLOGIC: No focal deficits. LABORATORY DATA: 10/01/16 04:32 Calcium Level 7.5 L, Aspartate Amino Transf (AST/SGOT) 65 H, Alanine Aminotransferase (ALT/SGPT) 39, Total Creatine Kinase 34 L, Alkaline Phosphatase 81, Total Bilirubin 0.8, Total Protein 5.1 L, Albumin 2.0 L, Red Blood Count 2.48 L, Mean Corpuscular Volume 96.7 H, Mean Corpuscular Hemoglobin 29.7, Mean Corpuscular Hemoglobin Concent 30.7 L, Red Cell Distribution Width 16.3 H, Phosphorus Level 2.6 #, Lactate Dehydrogenase 251 H, Triglycerides Level 66, Cholesterol Level 61 ASSESSMENT AND PLAN: Mr. Navarro is an 85-year-old male with past medical history of diastolic congestive heart failure, severe pulmonary hypertension, obstructive sleep apnea, admitted to intensive care unit (ICU) with septic shock secondary to Clostridium (C.) difficile colitis, hypercapnic respiratory failure requiring bilevel positive airway pressure (BiPAP) and acute oliguric renal failure. PLAN: 1. Acute oliguric renal failure. Creatinine is gradually trending down. He received a dose of Lasix in the hopes that his urinary output would pickling tank operator, however he remains oliguric. His blood pressure is not yet stable as he continues to have orthostatic hypotension and he is just coming off of pressors once again. He appears to be more volume overloaded than anything. It appears that his blood pressure would not tolerate large doses of diuretics. CVP is currently 11 and given his pulmonary hypertension, this CVP is reasonable. We will consider possibly gentle diuretics with Lasix drip, but he may have to be placed back on pressors. Given his age and unstable blood pressures, he would not be able to tolerate hemodialysis. We will monitor his renal function and urinary output over the next 24 hours and decide if gentle diuretics is the best approach. He is receiving a unit of blood, respiratory and volume status needs to be monitored closely, given that he does have mild bilateral effusions. 2. Septic shock secondary to C. difficile colitis: The patient continues to be on IV Flagyl and oral vancomycin. Blood pressures are not yet stable however he is afebrile and white count has trended down. Repeat cultures pending. 3. Anemia. Hemoglobin has trended down. He would benefit from 1 unit of packed red blood cells. 4. Hypernatremia, resolved. Sodium stable at 144. 5. Mixed respiratory and metabolic acidosis. Bicarbonate is stable at this time. BiPAP management per pulmonary. GME ATTESTATION GME ATTESTATION My preceptor for this patient encounter was physically present in the building during the encounter and was fully available. As needed, all aspects of the patient interview, examination, medical decision making process, and medical care plan development were reviewed and approved by the preceptor. Preceptor is aware and concurs with the plan as stated in the body of this note and will attest to such by his/her cosignature. MARK WOOD DO Jan 23, 2017 13:56
[2016-10-01] MEDS ORDERED: SODIUM CHLORIDE 0.9% INJ 10 ML SYR IV PRN (16:45)
--- NOTE | 2016-10-01 18:29 | ECGEPIP ---
Stationary ECG Study [facility] Test Date: 2016-09-30 Pat Name: WILIAM RIVAS Department: Room: [place] [address] Gender: M Financial Advisor Trainee: SALLYT : 1930 Requested By: MARGARETH Dougherty Order Number: [id number] Reading MD: Noel Chirinos Measurements Intervals [place] Rate: 110 P: PA: 0 QRS: -2 QRSD: 88 T: 0 QT: 293 QTc: 398 Interpretive Statements ATRIAL FIBRILLATION WITH RAPID VENTRICULAR RESPONSE NONSPECIFIC ST & T-WAVE ABNORMALITY ABNORMAL RHYTHM ECG NO SIGNIFICANT CHANGES, HEART RATE IS NOW SLIGHTLY SLOWER. LAST TRACING ON 09/25/2016 AT 20:08:48 Electronically Signed On 10-01-2016 18:29:24 EST by Noel Chirinos
--- NOTE | 2016-10-01 19:30 | IPN ---
DATE: 09/26/2016 Mr. Navarro continues to be in the ICU in acute renal failure. He has had orthostatic hypotension with blood pressures dropping in the 60s and therefore he received some Levophed overnight. He was started on IV Zosyn for some hypoxia. The patient does complain of increasing shortness of breath, but he remained afebrile. He still has diarrhea about nine times, mostly watery, but non mucoid, nonbloody. His white count on admission was 34,000, currently down to 3.8. He denies any abdominal pain. No nausea or vomiting. LABORATORY DATA: White count is 3.8, hemoglobin 7.4, hematocrit 24, platelets 74. Sodium 144, potassium 4.1, chloride 113, bicarb 23, BUN 83, creatinine 3.29 which has decreased from 4.22. Total CK 38, troponin 0.02, total protein 5.1, albumin 2. Micro urine culture, blood cultures were all done and are pending. Sputum gram stain has moderate epithelial cells, few white cells, yeastlike organism, culture is pending. C diff was positive on September 26. IMAGING: Chest x-ray am shows no new infiltrate, some pleural effusion on the left side. PHYSICAL EXAMINATION: Temperature is 96.9, pulse fluctuates between 85 and 130, blood pressure currently 134/81, O2 sat 80% on 3 liters, 92% on BiPap. HEART: Normal S1-S2 distant. LUNGS: Diminished breath sounds at the base, especially on the left side. ABDOMEN: Obese, soft, nontender. EXTREMITIES: +1 edema. IMPRESSION: 1. Severe C difficile colitis with septic shock improving white count and no abdominal pain, persistent diarrhea. 2. Acute oliguric renal failure. The patient has severe pulmonary hypertension and therefore his status is tenuous between trying to not fluid overload him. 3. Mixed respiratory metabolic acidosis requiring intermittent BiPap. There is no evidence of pneumonia or any infiltrate on chest x-ray and therefore I would avoid any antibiotics. 4. Thrombocytopenia. Could be heparin-induced. PLAN: Discontinue IV Zosyn. There is no evidence of infection on chest x-ray or cough. Switch vancomycin to fidaxomicin/Dificid 200 mg by mouth twice a day. Hopefully that would work better and decrease the chance of relapse. Continue IV Flagyl. Case has been discussed with Dr. Baer who agrees that there is no evidence of pneumonia clinically and we should be avoiding antibiotics.
[2016-10-01] MEDS ORDERED: ONDANSETRON 4MG/2ML VIAL (J2405) IV PRN (20:15)
[2016-10-01] MEDS: LATANOPROST 0.005% OPHTH SOLN 2.5 ML OU SCH (21:00)
[2016-10-01] MEDS: FIDAXOMICIN 200 MG TAB (DIFICID) PO SCH (21:14)
[2016-10-01] MEDS: SODIUM CHLORIDE 0.9% INJ 10 ML SYR IV SCH (21:14)
--- NOTE | 2016-10-01 21:15 | IPN ---
DATE: 10/01/2016 SUBJECTIVE: Patient is seen and examined in the morning. Patient was using bilevel positive airway pressure (BiPAP) overnight. Yesterday, the pressor had to be restarted due to severe hypotension. During encounter, patient is alert and awake and able to follow commands. OBJECTIVE: VITAL SIGNS: Temperature 97.6, pulse 112, respiration rate 20, blood pressure 173/79, pulse oximetry 96% with 4 liters nasal cannula. Patient's BiPAP switched to nasal cannula once patient is awake. GENERAL: No signs of acute distress, fatigue, alert and oriented times three. HEENT: There is some minor lesion near the lower lip near the edge. Poor oral hygiene. Extraocular motors grossly intact. CARDIOVASCULAR: Positive S1, S2, irregularly irregular with heart rate wandering around 100s. RESPIRATORY: Decreased breath sounds bilaterally. No wheezes appreciated. Positive rhonchi. ABDOMEN: Soft, nontender, nondistended. Bowel sounds present. EXTREMITIES: Edema throughout. No signs of cyanosis. LABORATORY DATA: WBC 3.8, hemoglobin 7.4, hematocrit 24, platelet count 74. Sodium 144, potassium 4.1, chloride 113, carbon dioxide 23, BUN 83, creatinine 3.29, GFR 23.2, fasting glucose 129, calcium 7.5, phosphorous 2.6, total bilirubin 0.8, AST 65, ALT 39, alkaline phosphatase 81, lactate dehydrogenase is 251, total CK 39, troponin is 0.02, total protein 5.1, albumin 2, triglycerides 66, cholesterol 61. ASSESSMENT AND PLAN: 1. Septic shock secondary to Clostridium (C) difficile. Patient is still relying on the pressors. Central venous pressure (CVP) is being monitored, will maintain around 10. We appreciate the starting sheet tank operator and chemical strength tester's input. Infectious disease has been consulted to help with antibiotic management. Patient is currently on oral vancomycin and intravenous (IV) Flagyl. Patient is still requiring intermittent bilevel positive airway pressure (BiPAP). 2. Clostridium (C) difficile colitis. Vancomycin was increased per Dr. Berger's recommendations a few days ago and patient is on IV Flagyl. Patient's infection inflammatory markers are improving. 3. Respiratory failure secondary to septic shock. Patient is still using bilevel positive airway pressure (BiPAP) intermittently. During the daytime patient is using nasal cannula. We appreciate starting sheet tank operator and media producer's assistance. 4. Renal failure secondary to acute tubular necrosis (ATN) and septic shock and recent nonsteroidal anti-inflammatory drug (NSAID) use. Patient currently has signs of fluid overload and patient still needs intermittent bolus for the shock. Renal function started to show slight improvement and patient also has increased urinary output. 5. Bilateral pleural effusion. Patient is receiving intermittent transfusions and patient's central venous pressure (CVP) is being monitored. 6. Thrombocytopenia. Patient has history of [place] placement. Heparin induced antibody level is tested, result is pending at this moment. 7. Anemia. Patient's hemoglobin and hematocrit have started to trend down. Patient will get one unit packed red blood cells transfusion today. It will also help with patient's fluid status. Blood transfusion decision is made after discussing with media producer and chemical strength tester. 8. Deep venous thrombosis (DVT) prophylaxis. Patient has thrombocytopenia and anemia and patient is on thromboembolism deterrents (TEDs) and sequential compression device.
[2016-10-02] VITALS (42 sets, daily range): BP systolic 69–133; BP diastolic 40–73; O2SAT 93–96
[2016-10-02] MEDS: PERCOCET 5MG/325MG TAB PO PRN (03:43)
[2016-10-02] MEDS: NOREPINEPHRINE BITARTRATE 8 MG in D5W 500 ML IV SCH ×2 (04:28→21:18)
[2016-10-02] MEDS: SODIUM CHLORIDE 0.9% INJ 10 ML SYR IV SCH ×3 (05:25→21:17)
[2016-10-02] MEDS: metroNIDAZOLE 500 MG in APPROPRIATE DILUENT 1 EA IV SCH ×3 (05:25→21:18)
[2016-10-02 05:44] LABS: DIFF SLIDE NUMBER 6; MEAN CORPUSCULAR HEMOGLOBIN 29.5 pg (27.0-33.0); MEAN CORPUSCULAR HGB CONC 30.8 g/dl (32.0-36.5); MEAN CORPUSCULAR VOLUME 95.7 fl (80.0-96.0); RED CELL DISTRIBUTION WIDTH 17.1 % (11.5-14.5); WHITE BLOOD COUNT 3.4 K/mm3 (4.0-10.0)
[2016-10-02 05:56] LABS: PLATELET COUNT, AUTOMATED 86 k/mm3 (150-450)
[2016-10-02 06:26] LABS: ALBUMIN 2.1 GM/DL (3.2-5.2); ALBUMIN/GLOBULIN RATIO 0.84 (1.00-1.93); BILIRUBIN,TOTAL 0.7 MG/DL (0.2-1.0); CALCIUM LEVEL 7.5 MG/DL (8.8-10.2); CREATININE FOR GFR 3.13 MG/DL (0.70-1.30); GLOMERULAR FILTRATION RATE 24.6 (>35); PHOSPHORUS LEVEL 3.6 MG/DL (2.5-4.9); POTASSIUM SERUM 4.3 MEQ/L (3.5-5.1); TOTAL PROTEIN 4.6 GM/DL (6.4-8.2)
[2016-10-02 06:27] LABS: ANISOCYTOSIS 1+; BANDS 1 % (< 11); EOSINOPHILS 1 % (0-5); HYPOCHROMASIA 2+
[2016-10-02 07:14] LABS: VENOUS BASE EXCESS -6.7 (-2.0-2.0); VENOUS O2 SATURATION 64.8 % (60.0-80.0); VENOUS PARTIAL PRESSURE CO2 65.2 mmHg (38.0-50.0); VENOUS STANDARD HCO3 18.5 MEQ/L; VENOUS TOTAL CO2 24.3 MEQ/L (24.0-28.0)
[2016-10-02] MEDS: HumaLOG INSULIN (NovoLOG) PER UNIT SC SCH ×4 (07:59→21:00)
[2016-10-02] MEDS: FIDAXOMICIN 200 MG TAB (DIFICID) PO SCH ×2 (07:59→21:17)
[2016-10-02] MEDS: ASPIRIN 81 MG ENTERIC TAB PO SCH (07:59)
[2016-10-02] MEDS: LACTOBACILLUS ACIDOPHILUS CAP (BACID) PO SCH ×3 (07:59→17:00)
[2016-10-02] MEDS: PANTOPRAZOLE 40MG INJ (PROTONIX) (C9113) IV SCH (08:00)
--- NOTE | 2016-10-02 08:57 | REP ---
Portable chest, single AP view, the patient semi upright comparison 10/01/1926. Says performed lordotic angulation. There is opacification of the lung bases bilaterally suggestive of bilateral infiltrates. However, there is extensive calcific pleural plaque, as previously, obscuring the lung mckinley. I cannot exclude bilateral pleural effusions. Cardiac size appears normal. Ania, mediastinum, unremarkable since There is a right IJ central venous catheter. Signed by Flavio Johns MD 10/02/2016 08:48 A
--- NOTE | 2016-10-02 09:14 | IPN ---
DATE: 10/02/2016 Patient seen and examined at bedside. Chart has been reviewed. Per nursing, patient has been severely hypotensive still requiring Levophed drip 30 mL/hr. Mean arterial pressure less than 60. Patient this morning complains of nausea without abdominal pain, persistent shortness of breath, unable to remove his nasal cannula, currently at 93% with 3 liters. Patient has refused his chest x-ray this morning. He continues to have left sided pleural effusion with plaquing bilaterally with no new infiltrate. Central line is noted in the right jugular vein. He continues to be hypothermic. Blood pressure 74 systolic to 90 systolic with Levophed drip at 30 mL/hr. Urine output has been minimal at 25 mL for the past 2 hours and has been 600 overnight. He continues to complain of shortness of breath without chest pain, pressure or tightness, lightheadedness. Patient continues to have watery diarrhea with 9 bowel movements 2 days ago, 6 bowel movements yesterday. On 09/26, Clostridium difficile was positive. Patient is tolerating his fidaxomicin. Temperature is 95.6, pulse 91, respiratory rate 23, blood pressure 74/42, 93% on 3 liters nasal cannula. General: Patient is in mild distress, unable to complete full sentences. No facial asymmetry. No jaundice. No icterus. Lungs diminished with crackles bilaterally. No wheezing. Diminished breath sounds. Heart: S1, S2. Regular rate and rhythm. Abdomen: Soft, nontender, nondistended. Extremities: Patient has well healed multiple scars on the knees and he has 2+ pitting edema throughout. LAB DATA: White count 3.4, hemoglobin 8.2, hematocrit 26.5, platelet count 86. Sodium 146, potassium 4.3, chloride 113, bicarbonate 23, BUN 85, creatinine 2.13 , glucose 133. CK-MB 3.8, MB relative index of 10, troponin 0.02, total protein 4.6, albumin 2.1. INR is 1.33 on 09/29/2016. ASSESSMENT AND PLAN: This is an 85-year-old male with history of chronic kidney disease, obstructive sleep apnea noncompliant with CPAP, restrictive lung disease, pulmonary hypertension, diastolic heart failure, admitted for acute on chronic renal failure with oliguria, persistent diarrhea, being admitted for Clostridium difficile colitis. Patient continues to have severe septic shock requiring Levophed drip. Unable to be titrated off due to map less than 50. Patient's CVP is currently 5. Patient has developed increased respiratory distress requiring supplemental oxygen. Patient has prior history of atrial fibrillation, pulmonary hypertension, chronic respiratory failure, obstructive sleep apnea (ELBA) with noncompliance with CPAP, diastolic heart failure, ejection fraction (EF) of 60%, prostate cancer (CA) status post surgery, reflux disease, diverticulosis, spinal stenosis, chronic low back pain, anemia and glaucoma, history of prostatectomy, bilateral knee replacement, inguinal hernia repair, bilateral cataract repair with the following acute issues: 1. Acute oliguric renal failure. Dr. Box and Dr. Pennington have been managing his fluid status in light of respiratory distress and severe septic shock. Patient currently has a small left pleural effusion requiring supplemental oxygen currently still on Levophed drip. Lactic acid has normalized to 0.8 from admission of 2.9. He is continued on full supportive care, renal dosing, avoiding nephrotoxins, renally dosing all medications. No acute indication for emergent hemodialysis at this time. Patient's metabolic acidosis secondary to diarrhea and renal failure have improved. 2. Clostridium difficile colitis causing severe dehydration, acute on chronic renal failure. Patient is currently on fidaxomicin, on IV Levophed due to severe septic shock with persistent hypotension. 3. Heparin induced thrombocytopenia possibly, patient's heparin induced antibody still pending. Avoid heparin for now. No acute indication for platelet transfusion. No active signs of bleeding. 4. Anemia most likely of chronic inflammation and chronic disease from renal failure. No overt signs of gastrointestinal (GI) bleed. Continue with hemoglobin and hematocrit checks. Check iron studies. 5. Acute on chronic hypoxic respiratory failure secondary to septic shock, currently BiPAP intermittently managed by taxation agent Dr. Baer. Keep oxygen saturations above 90%. 6. Chronic anemia. Patient did receive 1 unit of red blood cell transfusion yesterday. Avoid fluid overload in light of patient's hypoxia. Continue with full supportive care. CODE STATUS: Patient remains a FULL CODE despite an extensive lengthy discussion about multiorgan failure with respiratory failure, renal failure and septic shock requiring vasopressors. Patient insistent on cardiopulmonary resuscitation as well as mechanical intubation. He is currently on full supportive care with multiorgan failure. Addendum: Acute on Chronic Dementia: For competence, will ask Dr. Munoz for assistance. Pt does not comprehend his medical condition. NO answer from his brother who is his healthcare proxy. JOSE
[2016-10-02 09:37] LABS: ABG BASE EXCESS -6.4 (-2.0-2.0); ABG HCO3 21.5 MEQ/L (22.0-26.0); ABG PARTIAL PRESSURE CO2 56.6 mmHg (35.0-45.0); ABG TOTAL CO2 23.3 MEQ/L (23.0-31.0)
[2016-10-02 09:40] LABS: ABG pH (ARTERIAL) 7.198 UNITS (7.350-7.450)
[2016-10-02] MEDS ORDERED: SODIUM BICARBONATE 100 MEQ in D5W 1,000 ML IV SCH (12:00)
--- NOTE | 2016-10-02 12:17 | IPN ---
DATE OF SERVICE: 10/02/2016 Mr. Navarro is seen this morning in intensive care unit at his bedside. I have already discussed his condition and situation with primary physician, Dr. Candice Camilo, and critical care attending, Dr. Baer, this morning. Patient has multiorgan failure with oliguric acute renal failure, respiratory insufficiency, ongoing diarrhea due to Clostridium (C) difficile colitis, and hypotension requiring pressors. Yesterday he was off pressors for a brief period of time.; however, today he is back on Levophed. The patient has been declining, noninvasive ventilatory assistance. He continues to have multiple loose stools but no vomiting. His dyspnea and hypoxemia has been essentially unchanged. This morning, the patient declined arterial blood gasses (ABG) and a venous blood gas was done which showed pH 7.15, pCO2 65 and pO2 of 35. Later, patient did consent for an ABG and it showed a pH of 7.19, pCO2 56, pO2 66 and bicarbonate 23. His intake and output records from yesterday showed total intake 1210 and output 600 mL. This was all any urine output and in addition, he had six liquid stools. His weight is reported at 97.5 kg this morning. On physical examination, his temperature is 96.6 degrees Fahrenheit, heart rate 98 per minute with irregular rhythm. Respiratory rate is 22 per minute and blood pressure 97/52, mmHg with oxygen saturation 95% on 3 liters oxygen. His head is atraumatic. Pupils are equal and reactive to light. Sclera is anicteric. He has an internal jugular vein central line in place on the right side. Neck veins are difficult to be assessed. Oral mucosa is somewhat dry. Heart sounds are irregular in rhythm and tachycardiac. Lungs have diminished breath sounds with bilateral rhonchi. Abdomen soft and minimally tender. Bowel sounds are normal. Extremities have no cyanosis or clubbing. He has generalized edema of all four limbs. Neurologically he is awake, somewhat confused and disoriented. I had a long conversation with him and the patient did not make sense of multiple questions and could not explain his wishes. Today's laboratories show sodium level 146 and potassium 4.3. CO2 23, BUN 85 and creatinine 3.13. Calcium level 7.5 and phosphorus 3.6. AST 54, ALT 40, alkaline phosphatase 83 and LDH 262. Total protein 4.6 and albumin 2.1. WBC count is 3.4, hemoglobin up to 8.2 and hematocrit 26.5. Platelets 86,000. Blood gas showed a pH of 7.19, pCO2 56.6 and pO2 66. Bicarb is 21.5. Chest x-ray Reviewed independently showed cardiomegaly and bilateral pleural plaquing. There are bilateral pleural effusions, more prominent on the left than the right. PROBLEMS: 1. Oliguric acute renal failure superimposed on chronic kidney disease. This is related to sepsis and possible intravascular hypovolemia. At present, he is hypotensive and requiring pressors. He is not likely to tolerate dialysis and is most likely not a suitable candidate for dialysis in view of multiorgan problems and advanced age with septic shock. We are going to give him a trial of intravenous (IV) fluid with sodium bicarbonate infusion in view of a low central venous pressure (CVP) of five reported today. We will continue this at 100 per hour and monitor his urine output and vital signs. 2. Hypernatremia. Again, likely related to hypovolemia and acute renal failure. The patient's oral intake is minimal. We will give him D5W with 100 mEq of sodium bicarbonate in 1 liter and run it at 100 mL per hour. 3. Respiratory insufficiency. The patient has chronic obstructive pulmonary disease (COPD) with significant pleural plaquing. He also has small bilateral pleural effusions. At present, patient is declining to be on bilevel positive airway pressure (BiPAP). It remains to be seen if IV sodium bicarbonate infusion helps. 4. Anemia. Patient was transfused 1 unit of packed red blood cells yesterday and anemia improved slightly. 5. Clostridium (C) difficile colitis and septic shock. Patient continues to have loose stools and has not responded to medical therapy. He remains on pressors due to hypotension. His prognosis remains guarded. 6. DO NOT RESUSCITATE status. I have discussed with patient at length and spent at least 25 minutes [id number] discussing this issue of DO NOT RESUSCITATE. The patient was unable to explain his wishes and he was unable to answer my questions appropriately. He exhibits very paranoid behavior, which is consistent with psychosis and I feel that the patient is incompetent to make any decision himself about DO NOT RESUSCITATE. I have discussed with Dr. Camilo and Dr. Baer. I recommend to get psychiatric evaluation for competency as patient is in critical condition and likely to have adverse outcomes. We need to make a final decision about his DO NOT RESUSCITATE status.
[2016-10-02] MEDS: LATANOPROST 0.005% OPHTH SOLN 2.5 ML OU SCH (21:18)
[2016-10-03] VITALS (41 sets, daily range): BP systolic 78–135; BP diastolic 50–70
--- NOTE | 2016-10-03 00:20 | CR ---
DATE OF CONSULTATION: 10/02/2016 HISTORY OF THE PRESENT ILLNESS: This is an 85-year-old man who was admitted to the intensive severe diarrhea and who has acute renal failure, atrial fibrillation, severe pulmonary hypertension. I was asked to evaluate the patient because Dr. Box felt that a psychiatric consult was indicated, and it was requested by Dr. Baer. The purpose for the consult is because the patient might benefit from having a DNR, but it was felt that the patient is not able to understand making such a decision. In addition, the patient has not been compliant with treatment and refusing things like his bilevel positive airway pressure (BiPAP) or wanting to get up and walk on his own, although his balance is very poor and at times he refuses certain laboratory studies, such as arterial blood gas. Dr. Baer felt concerned that the patient may be having some paranoid thoughts because the patient had made statements to staff that he was being made to buy the BiPAP machine. I also spoke with the patients girlfriend of the past 8 years. She indicated that the patient has been confused on and off. She states that he has been saying that staff want to kill him because he is black. Apparently his brother who lives in [place] is his health care proxy, and the girlfriend indicates that she spoke to him and he is planning to come to the hospital as soon as the weather gets a little better. When I evaluated the patient today, he was able to tell me that he was not told that a psychiatric evaluation had been ordered. However, he was pleasant, and he indicated that he was fine talking to me. When I asked the patient how he was doing, he stated, "I'm getting ready for Thanksgiving dinner." He was then able to tell me that he was in the hospital. He had a lot of difficulty trying to tell me what his medical condition is. He kept stating that he felt that he would better if he just got out of bed and walked, and he was not able to understand how likely this would be pretty unsafe because he is unsteady on his feet, and he is having severe orthostatic hypotension. Even when I stated those things to him , he was not able to repeat it back to me. I did not actually elicit any paranoid thinking from the patient myself. He was not able to understand the consequences of a DNR and could not explain to me either way why he would want or not want a DNR. PAST PSYCHIATRIC HISTORY: Unable to obtain any past history. SUBSTANCE ABUSE: Unable to obtain whether there any history of substance abuse. MEDICAL HISTORY: The patient, of course, has multiple chronic and pretty severe medical conditions to include: Acute renal failure. Clostridium difficile colitis. Chronic hypoxic respiratory failure. Chronic anemia. Atrial fibrillation. MENTAL STATUS EXAM: The patient was alert. He was oriented to person and place. He was able to tell me that we were in the hospital, yet initially he told me that he was getting ready to have Thanksgiving dinner. He was able to tell me it was September and for the year, he stated, "17." He could not repeat the three words immediately. He had difficulties with long-term memory. He could not spell the word world even forward. He was able to tell me that he was in [place]. He described that he was feeling "good." Affect was constricted but appropriate to his mood. I did not elicit any psychotic symptoms, but it appears that he is having some paranoid thinking. I did not elicit any suicidal or homicidal ideation. Insight and judgment is poor. DIAGNOSES: Delirium due to multiple etiology. Clostridium difficile colitis. Acute renal failure. Respiratory insufficiency. Chronic anemia. RECOMMENDATIONS: At this point, the patient is not able to understand the seriousness of his medical condition. He is not able to understand the medical necessity for his treatment. He was not able to understand the consequences of either accepting or refusing a do not resuscitate. I did not elicit any paranoid thinking, but it seems like he is having some paranoid thinking according to staff. If this continues, I would recommend treatment with a low dose of Haldol 0.5 mg twice a day. Please re-consult if further indicated. Thank you. JOSE
[2016-10-03] MEDS: SODIUM BICARBONATE 100 MEQ in D5W 1,000 ML IV SCH ×2 (01:29→15:17)
[2016-10-03] MEDS: SODIUM CHLORIDE 0.9% INJ 10 ML SYR IV SCH ×3 (05:27→21:11)
[2016-10-03] MEDS: metroNIDAZOLE 500 MG in APPROPRIATE DILUENT 1 EA IV SCH ×3 (05:27→21:10)
[2016-10-03 06:00] LABS: MEAN CORPUSCULAR HEMOGLOBIN 29.2 pg (27.0-33.0); MEAN CORPUSCULAR HGB CONC 30.9 g/dl (32.0-36.5); MEAN CORPUSCULAR VOLUME 94.4 fl (80.0-96.0); PLATELET COUNT, AUTOMATED 118 k/mm3 (150-450); RED CELL DISTRIBUTION WIDTH 17.1 % (11.5-14.5)
[2016-10-03 06:07] LABS: ALBUMIN 2.1 GM/DL (3.2-5.2); CALCIUM LEVEL 7.7 MG/DL (8.8-10.2); CREATININE FOR GFR 3.48 MG/DL (0.70-1.30); GLOMERULAR FILTRATION RATE 21.7 (>35); PHOSPHORUS LEVEL 2.5 MG/DL (2.5-4.9); POTASSIUM SERUM 3.9 MEQ/L (3.5-5.1)
[2016-10-03 06:44] LABS: BANDS 2 % (< 11); NUCLEATED RED BLOOD CELL 1 % (0-0)
[2016-10-03 06:45] LABS: ANISOCYTOSIS 2+; HYPOCHROMASIA 2+
[2016-10-03] MEDS: LACTOBACILLUS ACIDOPHILUS CAP (BACID) PO SCH ×5 (08:00→18:00)
[2016-10-03] MEDS: HALOPERIDOL 0.5 MG TAB PO SCH ×3 (08:39→21:22)
[2016-10-03] MEDS: FIDAXOMICIN 200 MG TAB (DIFICID) PO SCH ×4 (08:39→21:22)
[2016-10-03] MEDS: PANTOPRAZOLE 40MG INJ (PROTONIX) (C9113) IV SCH (08:39)
[2016-10-03] MEDS: ASPIRIN 81 MG ENTERIC TAB PO SCH ×2 (08:39→08:56)
[2016-10-03] MEDS: HumaLOG INSULIN (NovoLOG) PER UNIT SC SCH ×5 (08:40→21:09)
[2016-10-03 10:25] LABS: ABG BASE EXCESS -1.1 (-2.0-2.0); ABG HCO3 26.1 MEQ/L (22.0-26.0); ABG PARTIAL PRESSURE CO2 58.1 mmHg (35.0-45.0); ABG STANDARD HCO3 23.2 MEQ/L (22.0-26.0); ABG TOTAL CO2 27.9 MEQ/L (23.0-31.0)
[2016-10-03 10:33] LABS: ABG PARTIAL PRESSURE O2 41.6 mmHg (75.0-100.0)
--- NOTE | 2016-10-03 12:10 | IPNPDOC ---
Date/Time Seen The patient was seen on 10/03/16 at 11:50. Progress Note DATE OF ENCOUNTER: 10/03/2016 SUBJECTIVE: Mr. Navarro was seen this morning at bedside. He was evaluated by psychiatry yesterday and he does not comprehend the extent of his medical condition nor is he able to make a sound decision. Primary team spoke with a family member and he is now DNR. He has been having paranoid thoughts this morning, like someone is trying to harm him and stated that we were trying to overdose him. He has multiorgan failure and remains oliguric and on 10mcg of Levophed, increased from yesterday. He was refusing his medications this morning and took his nasal cannula off despite being advised not to. He does not wish to wear his BiPAP mask either. His dyspnea and hypoxemia are unchanged. It appears that his stools have tapered down based on the recorded number of stools. No nausea or emesis. No chest pain or pressure. ABG this morning shows a pH of 7.27, pCO2 58, pO2 42. OBJECTIVE: Vital Signs Date Time Temp Pulse Resp B/P Pulse Ox O2 Delivery O2 Flow Rate FiO2 10/03/16 10:00 98 107/70 Nasal Cannula 3.0 10/03/16 09:00 98 10/03/16 08:00 95.9 10/03/16 08:00 30 10/03/16 04:30 18 I&O- Last 24 Hours up to 6 AM 10/03/16 06:00 Intake Total 3318 ml Output Total 293 ml Balance 3025 ml GENERAL: The patient is awake and alert, in no acute distress. HEENT: Normocephalic, atraumatic. Extraocular muscles are intact. Mucosa appears moist. NECK: Supple. Jugular venous distention could not be appreciated. He has a right IJ in place. HEART: Positive S1, S2. Irregularly irregular. Rate improved. LUNGS: Diminished breath sounds bilaterally. No rales or wheeling appreciated. ABDOMEN: Soft, nontender, nondistended. Positive bowel sounds. No rebound, guarding or rigidity. EXTREMITIES: He has generalized edema. No cyanosis. Pulses are palpable. NEUROLOGIC: No focal deficits. LABORATORY DATA: 10/03/16 05:29 Red Blood Count 2.73 L, Mean Corpuscular Volume 94.4, Mean Corpuscular Hemoglobin 29.2, Mean Corpuscular Hemoglobin Concent 30.9 L, Red Cell Distribution Width 17.1 H, Albumin 2.1L, Anion Gap 7L, Calcium Level 7.7L, Glomerular Filtration Rate 21.7L, Phosphorus Level 2.5 10/03/16 10:10: Arterial Blood pH 7.270L, Arterial Blood Partial Pressure CO2 58.1H, Arterial Blood Partial Pressure O2 41.6L, Arterial Blood Total CO2 27.9, Arterial Blood HCO3 26.1H, Arterial Blood Base Excess -1.1, Arterial Blood Oxygen Saturation 77.8L, Blood Gas Bicarbonate Standard 23.2 ASSESSMENT AND PLAN: Mr. Navarro is an 85-year-old male with past medical history of diastolic congestive heart failure, severe pulmonary hypertension, obstructive sleep apnea, admitted to intensive care unit (ICU) with septic shock secondary to Clostridium (C.) difficile colitis, hypercapnic respiratory failure requiring bilevel positive airway pressure (BiPAP) and acute oliguric renal failure. PLAN: 1. Acute oliguric renal failure superimposed on chronic kidney disease, secondary to sepsis. He continues to require Levophed to maintain his pressures. CVP has improved to 9 and we will continue with sodium bicarb fluids. Continue to monitor his intake and output. He would not be able to tolerate dialysis given his multiorgan failure, advanced age, and septic shock requiring pressors. An attempt was made again this morning to try and explain this to the patient, but it doesn't appear that he is aware of the severity of his condition. 2. Septic shock secondary to C. difficile colitis. He is on IV Flagyl and Dificid. He remains hypotensive although stools have tapered down some based on the recorded amount. 3. Acute on chronic respiratory failure, with a mixed acidosis. The patient has chronic obstructive pulmonary disease (COPD) with significant pleural plaquing. He also has small bilateral pleural effusions. He has been refusing bilevel positive airway pressure (BiPAP) and is now being noncompliant with supplemental oxygen. His pH has improved with the IV sodium bicarbonate however and we will continue with such. 4. Hypernatremia, secondary to hypovolemia. This has resolved with IV hydration. 5. Anemia. He received 1 unit of packed red blood cells on 10/01. Hemoglobin currently 8.0 DISPOSITION: Mr. Navarro has several processes working against him and his prognosis remains guarded. GME ATTESTATION GME ATTESTATION My preceptor for this patient encounter was physically present in the building during the encounter and was fully available. As needed, all aspects of the patient interview, examination, medical decision making process, and medical care plan development were reviewed and approved by the preceptor. Preceptor is aware and concurs with the plan as stated in the body of this note and will attest to such by his/her cosignature. MARK WOOD DO Oct 03, 2016 12:10
[2016-10-03] MEDS: NOREPINEPHRINE BITARTRATE 8 MG in D5W 500 ML IV SCH (12:53)
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
[2016-10-03] MEDS: cefTRIAXone SOD 1 GM in D5W MINI-BAG PLUS 50 ML IV SCH (14:36)
[2016-10-03] MEDS: LATANOPROST 0.005% OPHTH SOLN 2.5 ML OU SCH ×2 (21:10→21:27)
[2016-10-04] VITALS (32 sets, daily range): BP systolic 82–161; BP diastolic 46–72
[2016-10-04] MEDS: NOREPINEPHRINE BITARTRATE 8 MG in D5W 500 ML IV SCH ×2 (02:33→12:30)
[2016-10-04] MEDS: SODIUM BICARBONATE 100 MEQ in D5W 1,000 ML IV SCH ×2 (04:51→18:19)
[2016-10-04 05:00] LABS: BASO % 0.6 % (0.0-1.0); EOS % 0.7 % (0.0-3.0); LARGE UNSTAINED CELL # 0.4 K/mm3 (0.0-0.4); LARGE UNSTAINED CELL % 6.4 % (0.0-4.0); LYMPH # 0.9 K/mm3 (1.5-4.5); MEAN CORPUSCULAR HGB CONC 31.3 g/dl (32.0-36.5); MEAN CORPUSCULAR VOLUME 95.8 fl (80.0-96.0); MONO # 0.5 K/mm3 (0.0-0.8); MONO % 8.7 % (0.0-5.0); NEUTROPHILS % 73.7 % (36.0-66.0); PLATELET COUNT, AUTOMATED 140 k/mm3 (150-450); RED CELL DISTRIBUTION WIDTH 18.3 % (11.5-14.5); WHITE BLOOD COUNT 5.4 K/mm3 (4.0-10.0)
[2016-10-04 05:12] LABS: ALBUMIN 1.9 GM/DL (3.2-5.2); CALCIUM LEVEL 7.2 MG/DL (8.8-10.2); CREATININE FOR GFR 3.04 MG/DL (0.70-1.30); GLOMERULAR FILTRATION RATE 25.4 (>35); PHOSPHORUS LEVEL 2.3 MG/DL (2.5-4.9)
[2016-10-04] MEDS: SODIUM CHLORIDE 0.9% INJ 10 ML SYR IV SCH ×3 (05:26→22:06)
[2016-10-04] MEDS: metroNIDAZOLE 500 MG in APPROPRIATE DILUENT 1 EA IV SCH ×3 (05:26→22:06)
[2016-10-04] MEDS: NS 500 ML IV SCH (05:26)
[2016-10-04] MEDS: LACTOBACILLUS ACIDOPHILUS CAP (BACID) PO SCH ×4 (08:00→17:58)
[2016-10-04] MEDS: HumaLOG INSULIN (NovoLOG) PER UNIT SC SCH ×4 (08:06→23:43)
[2016-10-04] MEDS: FIDAXOMICIN 200 MG TAB (DIFICID) PO SCH ×3 (08:11→20:33)
[2016-10-04] MEDS: HALOPERIDOL 0.5 MG TAB PO SCH ×3 (08:11→20:33)
[2016-10-04] MEDS: ASPIRIN 81 MG ENTERIC TAB PO SCH ×2 (08:12→08:30)
[2016-10-04] MEDS: PANTOPRAZOLE 40MG INJ (PROTONIX) (C9113) IV SCH (08:12)
--- NOTE | 2016-10-04 09:15 | IPN ---
DATE OF VISIT: 10/04/2016 The patient is seen and examined at the bedside. Chart has been reviewed. Per nursing the patient has been increasingly agitated but was able to keep his BiPAP on all night. He has refused his medication and was spitting out his oral medications. We were unable to take him off the vasopressor as his main artery pressure dropped down to less than 55. At this time the patient continues to have loose bowel movements, one yesterday. PHYSICAL EXAMINATION VITAL SIGNS: He is afebrile. Temperature 96.5, pulse 82, respiratory 16, blood pressure 82/54, 96% BiPAP on Levophed and drip. GENERAL: The patient is confused, awake, alert and oriented to person only, disoriented to time and place. HEENT/NECK: No jugular venous distention, no thyromegaly. Dry mucous membranes. LUNGS: Diminished breath sounds. Right internal jugular (IJ) in place. No rales or wheezing. HEART: S1, S2, irregularly, irregular. ABDOMEN: Soft, nontender, nondistended. Positive bowel sounds, obese. EXTREMITIES: Generalized edema. LABORATORY DATA: 10/03 Arterial blood gas: ph 7.27, CO2 58, O2 41, white count 5.4. Hemoglobin 7.4, hematocrit 22.5, platelets 140. Sodium 142, potassium 4, chloride 106, bicarbonate 30, BUN 80, creatinine 2.04, glucose 150. Calcium 7.2, phosphorus 2.3. Chest x-ray 10/02/2016: Right IJ opacification with bilateral infiltrates. Extensive calcific pleural plaques. Microbiology: Klebsiella in the urine culture. ASSESSMENT AND PLAN: Microbiology: Klebsiella in the urine culture. ASSESSMENT AND PLAN: This is an 85-year-old male, DO NOT RESUSCITATE/DO NOT INTUBATE via health care proxy, patient's brother in [place], [place]. History of chronic kidney disease, obstructive sleep apnea, noncompliant with C-PAP, restrictive lung disease, pulmonary hypertension, diastolic heart failure , admitted for persistent diarrhea, Clostridium difficile colitis with acute on chronic renal failure and oliguria. The patient was found to have severe septic shock requiring Levophed drip in respiratory failure requiring BiPAP therapy with severe metabolic acidosis secondary to sepsis and renal failure, heparin induced thrombocytopenia. The patient had prior history of atrial fibrillation, pulmonary hypertension, chronic respiratory failure on 2 liters of oxygen, CPAP with noncompliance, ejection fraction 60%, prostate cancer, reflux, diverticulosis, spinal stenosis, chronic back pain, anemia, glaucoma, prostatectomy, bilateral knee replacement, inguinal hernia repair, bilateral cataract repair with the following acute issues: 1. Septic shock secondary to Clostridium difficile colitis with acute oliguric renal failure superimposed on chronic kidney disease. The patient has very poor overall prognosis despite full treatment. Full supportive care, vasopressors, intravenous Flagyl and Fidaxomicin. 2. Acute on chronic renal failure with oliguria. Metabolic acidosis currently on sodium bicarbonate drip. Managed by nephrology. The patient is not a candidate for hemodialysis due to septic shock and requirement for vasopressor. 3. Acute on chronic hypoxic respiratory failure secondary to septic shock. BiPAP management per Dr. Baer. 4. Anemia. No obvious signs of gastrointestinal bleed. Will continue to monitor for now and transfuse if persistently less than 8. 5. Acute metabolic encephalopathy and chronic dementia. The patient is mentally incompetent to make medical decisions most likely secondary to septic shock and renal failure in the setting of sepsis. The patient's health car proxy, Rodri Navarro, phone number [phone] will be coming into the hospital today to discuss comfort measures. At this time the patient is DO NOT RESUSCITATE/ DO NOT INTUBATE but will continue current management. 6. History of chronic pulmonary obstructive disease (COPD), obstructive sleep apnea on chronic CPAP. Dr. Baer is managing the patient's respiratory needs. 7. Thrombocytopenia. No active signs of bleeding, no acute indication for platelet transfusion. Improving, avoid heparin products. MTDD
[2016-10-04 10:04] LABS: ABG BASE EXCESS 0.3 (-2.0-2.0); ABG HCO3 27.3 MEQ/L (22.0-26.0); ABG STANDARD HCO3 24.7 MEQ/L (22.0-26.0); ABG TOTAL CO2 29.1 MEQ/L (23.0-31.0); ABG pH (ARTERIAL) 7.291 UNITS (7.350-7.450)
[2016-10-04] MEDS: cefTRIAXone SOD 1 GM in D5W MINI-BAG PLUS 50 ML IV SCH (13:44)
--- NOTE | 2016-10-04 17:46 | IPNPDOC ---
Date/Time Seen The patient was seen on 10/04/16 at 17:27. Progress Note DATE OF ENCOUNTER: 10/04/2016 SUBJECTIVE: Mr. Navarro was seen this morning at bedside. He he continues to have poor urinary output. He has been agitated overnight and refusing his medications. However, he has kept his BiPAP mask on thus far. He is currently on 4mcg of Levophed, and this is trying to be titrated off. His CVP this morning was 14. Stools have tapered down. No nausea or emesis. No chest pain or pressure. ABG this morning shows a pH of 7.29, pCO2 58, pO2 78. OBJECTIVE: Vital Signs Date Time Temp Pulse Resp B/P Pulse Ox O2 Delivery O2 Flow Rate FiO2 10/04/16 17:00 79 100/50 91 Nasal Cannula 5.0 10/04/16 16:00 94.3 18 10/04/16 08:03 55 I&O- Last 24 Hours up to 6 AM 10/04/16 06:00 Intake Total 2879.9 ml Output Total 420 ml Balance 2459.9 ml GENERAL: The patient is not very alert, he does not appear to be in any acute distress. HEENT: Normocephalic, atraumatic. Extraocular muscles are intact. Mucosa appears dry. NECK: Supple. Jugular venous distention could not be appreciated. He has a right IJ in place. HEART: Positive S1, S2. Irregularly irregular. Rate controlled. LUNGS: Diminished breath sounds bilaterally. No wheezing appreciated. ABDOMEN: Soft, nontender, nondistended. Positive bowel sounds. No rebound, guarding or rigidity. EXTREMITIES: He has upper and lower extremity edema. No cyanosis. Pulses are palpable. NEUROLOGIC: No focal deficits. He does not appear to be able to comprehend his medical condition. LABORATORY DATA: 10/04/16 04:47 Red Blood Count 2.45 L, Mean Corpuscular Volume 95.8, Mean Corpuscular Hemoglobin 30.0, Mean Corpuscular Hemoglobin Concent 31.3 L, Red Cell Distribution Width 18.3 H, Albumin 1.9L, Anion Gap 6L, Calcium Level 7.2L, Glomerular Filtration Rate 25.4L, Phosphorus Level 2.3L 10/04/16 09:58: Arterial Blood pH 7.291L, Arterial Blood Partial Pressure CO2 58.0H, Arterial Blood Partial Pressure O2 78.0, Arterial Blood Total CO2 29.1, Arterial Blood HCO3 27.3H, Arterial Blood Base Excess 0.3, Arterial Blood Oxygen Saturation 95.1, Blood Gas Bicarbonate Standard 24.7 ASSESSMENT AND PLAN: Mr. Navarro is an 85-year-old male with past medical history of diastolic congestive heart failure, severe pulmonary hypertension, obstructive sleep apnea, admitted to intensive care unit (ICU) with septic shock secondary to Clostridium (C.) difficile colitis, hypercapnic respiratory failure requiring bilevel positive airway pressure (BiPAP) and acute oliguric renal failure. 1. Acute oliguric renal failure superimposed on chronic kidney disease, secondary to sepsis. Patient remains oliguric despite the fluctuations seen with his creatinine. He continues to require Levophed to maintain his pressures. We will continue with his IV bicarbonate as he has poor oral intake. Output will continue to be monitored, however, his prognosis remains guarded given his multiple problems. He is not a candidate for hemodialysis, as he would not be able to tolerate it given his advanced age and septic shock requiring pressors. 2. Septic shock secondary to C. difficile colitis. He is on IV Flagyl and Dificid. Recently started on ceftriaxone as well. He remains hypotensive although stools have tapered down. 3. Acute on chronic respiratory failure, with a mixed acidosis. The patient has chronic obstructive pulmonary disease (COPD) with significant pleural plaquing. He also has small bilateral pleural effusions. He appears to be keeping the BiPAP mask on this morning. His pH has improved secondary to being on IV bicarbonate, however he has significant pulmonary hypertension working against him. 4. Hypernatremia, secondary to hypovolemia. This has resolved with IV hydration. 5. Anemia. He received 1 unit of packed red blood cells on 10/01. Hemoglobin appears to be trending down once again. DISPOSITION: Mr. Navarro unfortunately has several factors working against him. His septic shock has not improved to the point where he can be taken off of pressors. He remains oliguric and his average urinary output has actually been trending down. He continues to require BiPAP given his significant COPD, pleural plaquing and pulmonary hypertension. His prognosis remains guarded and primary team is working on establishing his CODE STATUS. He apparently is supposed to have family members come in from [place] today. GME ATTESTATION GME ATTESTATION My preceptor for this patient encounter was physically present in the building during the encounter and was fully available. As needed, all aspects of the patient interview, examination, medical decision making process, and medical care plan development were reviewed and approved by the preceptor. Preceptor is aware and concurs with the plan as stated in the body of this note and will attest to such by his/her cosignature. MARK WOOD DO Oct 04, 2016 17:46
[2016-10-04 19:41] LABS: ABG BASE EXCESS 1.8 (-2.0-2.0); ABG HCO3 28.7 MEQ/L (22.0-26.0); ABG PARTIAL PRESSURE O2 79.4 mmHg (75.0-100.0); ABG STANDARD HCO3 26.1 MEQ/L (22.0-26.0); ABG TOTAL CO2 30.5 MEQ/L (23.0-31.0); ABG pH (ARTERIAL) 7.305 UNITS (7.350-7.450)
[2016-10-04] MEDS: LATANOPROST 0.005% OPHTH SOLN 2.5 ML OU SCH (20:36)
[2016-10-05] VITALS (29 sets, daily range): BP systolic 88–182; BP diastolic 50–105
[2016-10-05 04:52] LABS: DIFF SLIDE NUMBER 36; MEAN CORPUSCULAR HGB CONC 30.1 g/dl (32.0-36.5); PLATELET COUNT, AUTOMATED 140 k/mm3 (150-450); RED CELL DISTRIBUTION WIDTH 18.1 % (11.5-14.5); WHITE BLOOD COUNT 4.5 K/mm3 (4.0-10.0)
[2016-10-05 05:13] LABS: ALBUMIN 1.8 GM/DL (3.2-5.2); CALCIUM LEVEL 7.1 MG/DL (8.8-10.2); CREATININE FOR GFR 2.41 MG/DL (0.70-1.30); GLOMERULAR FILTRATION RATE 33.2 (>35); PHOSPHORUS LEVEL 2.5 MG/DL (2.5-4.9); POTASSIUM SERUM 3.9 MEQ/L (3.5-5.1)
[2016-10-05 05:25] LABS: BANDS 1 % (< 11)
[2016-10-05 05:29] LABS: ANISOCYTOSIS 2+; HYPOCHROMASIA 2+
[2016-10-05] MEDS: HumaLOG INSULIN (NovoLOG) PER UNIT SC SCH ×3 (05:36→17:32)
[2016-10-05] MEDS: SODIUM CHLORIDE 0.9% INJ 10 ML SYR IV SCH ×3 (05:37→21:33)
[2016-10-05] MEDS: metroNIDAZOLE 500 MG in APPROPRIATE DILUENT 1 EA IV SCH ×3 (05:38→21:31)
--- NOTE | 2016-10-05 07:47 | IPN ---
DATE: 10/05/2016 The patient is seen and examined at the bedside. Chart has been reviewed. Per nursing, the patient has been off the Levophed drip since yesterday. He did well with his BiPAP with two episodes of resting with nasal cannula still saturating at 95% to 100%. This morning, the patient is much more awake and alert. He complains of some shortness of breath without chest pain, pressure, tightness, or palpitations. He has had 2 bowel movements yesterday. Current weight is 101.3 kg from previous admission of 86.18 kg. The patient continues to have low hemoglobin at 6.8 and 22, most likely secondary to hemodilutional. No signs of active bleeding. Denies any hematemesis, coffee ground emesis, bright red blood per rectum or melena. Per nursing, no other issues. Patient appears to have stabilized. VITAL SIGNS: Temperature 95.4, pulse 90, respiratory 16, blood pressure 118/59, 100%, 55, FiO2. GENERAL: The patient is awake, alert and oriented to person. He is disoriented to place and time. LUNGS: Diminished breath sounds. Air entry is equal. No wheezing noted. HEART: S1, S2, sinus rhythm. ABDOMEN: Obese, soft, nontender, nondistended. Positive bowel sounds. Right internal jugular (IJ) is noted. EXTREMITIES: Chronic pitting edema 2+, generalized. LABORATORY DATA: White count 4.5, hemoglobin 6.8, hematocrit 22.6 and platelet count 140. Sodium 144, potassium 3.9, chloride 104, bicarbonate 34, BUN 72, creatinine 2.4, glucose 155. MICROBIOLOGY: Staphylococcus epidermidis blood culture, most likely contaminant. Haemophilus parainfluenza of sputum. Urine culture Klebsiella. ASSESSMENT AND PLAN: This is an 85-year-old, DO NOT RESUSCITATE/DO NOT INTUBATE male with health care proxy, brother in [place], [place], with history of chronic kidney disease, obstructive sleep apnea noncompliant with CPAP, restrictive lung disease, severe pulmonary hypertension, and diastolic heart failure admitted for persistent diarrhea and was found to have Clostridium difficile colitis with acute on chronic renal failure. He is oliguric. The patient was found to have severe septic shock requiring Levophed drip with respiratory failure requiring BiPAP therapy and severe metabolic acidosis requiring bicarbonate drip. During the admission, the patient developed heparin induced thrombocytopenia and severe anemia requiring packed red blood cell transfusion. He has had a prior history of atrial fibrillation, chronic respiratory failure on 2 liters of oxygen, prostate cancer, reflux, diverticulosis, spinal stenosis, chronic back pain, glaucoma, prostatectomy, bilateral knee replacement, inguinal hernia repair and bilateral cataract repair , currently with the following issues: 1. Septic shock secondary to Clostridium difficile with acute oliguric renal failure superimposed on chronic kidney disease. The patient is on full supportive care. The patient has received intravenous fluid hydration in the form of bicarbonate drip as well as Fidaxomicin and Flagyl intravenously. The patient currently appears stabilized and off of the Levophed drip since yesterday. 2. Acute on chronic respiratory failure, history of obstructive sleep apnea. The patient has tolerated the BiPAP well and has been off of BiPAP twice yesterday. He appears to be stable on nasal cannula at this time. Will check a chest x-ray this morning. Dr. Baer is managing the patient's respiratory status. If continues to do well, may transfer to progressive care unit (PCU). 3. Acute on chronic renal failure. Defer to Dr. Box regarding fluid management. Patient has been off Levophed drip since yesterday. Still continuing on intravenous bicarbonate. 4. History of chronic obstructive pulmonary disease with chronic hypoxic failure with significant pleural plaquing and bilateral pleural effusions. The patient is on BiPAP managed by Dr. Baer. Continue with management. 5. Anemia. Most likely hemodilutional. No signs of active bleeding. Will check a peripheral blood smear. Will transfuse 2 units of red blood cells. 6. Heparin induced thrombocytopenia. Avoid heparin products. Monitor for active bleeding. 7. Clostridium difficile colitis. Continue on Fidaxomicin and intravenous Flagyl. 8. Klebsiella in the urine, on Ceftriaxone. Continue a full course. 9. History of diastolic heart failure. Currently with bilateral effusions, managed by Dr. Box, decompenated. Strict ins and outs. The patient has gained 14 kg from admission. MTDD
[2016-10-05] MEDS: LACTOBACILLUS ACIDOPHILUS CAP (BACID) PO SCH ×4 (08:00→17:08)
[2016-10-05] MEDS: SODIUM BICARBONATE 100 MEQ in D5W 1,000 ML IV SCH (08:08)
[2016-10-05] MEDS: ASPIRIN 81 MG ENTERIC TAB PO SCH ×2 (09:00→09:22)
[2016-10-05] MEDS: FIDAXOMICIN 200 MG TAB (DIFICID) PO SCH ×3 (09:00→21:00)
[2016-10-05] MEDS: HALOPERIDOL 0.5 MG TAB PO SCH ×3 (09:00→21:00)
[2016-10-05] MEDS: PANTOPRAZOLE 40MG INJ (PROTONIX) (C9113) IV SCH (09:22)
--- NOTE | 2016-10-05 09:47 | REP ---
PORTABLE CHEST: AP portable view of the chest is performed and compared to a prior study of 10/02/2016. Chronic calcified pleural plaques are again noted. Cardiac silhouette appears prominent. There is bibasilar atelectasis/infiltrate with bilateral pleural effusions, unchanged. There is calcification of the thoracic aorta. There is a right central venous catheter again noted. IMPRESSION: Essentially stable exam. Signed by Flavio Tineo MD 10/05/2016 01:12 P
--- NOTE | 2016-10-05 12:16 | IPNPDOC ---
Date/Time Seen The patient was seen on 10/05/16 at 11:55. Progress Note DATE OF ENCOUNTER: 10/05/2016 SUBJECTIVE: Mr. Navarro was seen this morning at bedside. He is currently on BiPAP. The nurse attempted to remove BiPAP this morning, but he desaturated to 71 very quickly. As far as his blood pressures, they have been holding steady on their own. He has been off of Levophed since late yesterday morning. His CVP this morning was 12. He does continue to refuse medication and he spit his water out on the nurse earlier. Stools have tapered down, with 2 bowel movements throughout yesterday. His dyspnea is unchanged, but no chest pain. No nausea, emesis or abdominal pain. He continues to have generalized edema. OBJECTIVE: Vital Signs Date Time Temp Pulse Resp B/P Pulse Ox O2 Delivery O2 Flow Rate FiO2 10/05/16 11:12 95 182/105 88 10/05/16 10:30 NIPPV (BIPAP/CPAP) 5.0 10/05/16 09:45 95.5 10/05/16 06:00 16 55 I&O- Last 24 Hours up to 6 AM 10/05/16 06:00 Intake Total 2097.50 ml Output Total 815 ml Balance 1282.50 ml GENERAL: Laying in bed comfortably, he does not appear to be in any acute distress. HEENT: Normocephalic, atraumatic. Extraocular muscles are intact. Mucosa appears dry. NECK: Supple. Jugular veins are elevated. He has a right IJ in place. HEART: Irregularly irregular. Heart sounds are distant. LUNGS: Diminished breath sounds bilaterally. No wheezing appreciated. ABDOMEN: Soft, nontender, nondistended. Positive bowel sounds. No rebound, guarding or rigidity. EXTREMITIES: He has upper and lower extremity edema. No cyanosis. Pulses are palpable. NEUROLOGIC: No focal deficits. LABORATORY DATA: 10/05/16 04:43 Red Blood Count 2.43 L, Mean Corpuscular Volume 93.0, Mean Corpuscular Hemoglobin 28.0, Mean Corpuscular Hemoglobin Concentration 30.1 L, Red Cell Distribution Width 18.1 H, Albumin 1.8L, Anion Gap 6L, Calcium Level 7.1L, Glomerular Filtration Rate 33.2L, Phosphorus Level 2.5 ASSESSMENT AND PLAN: Mr. Navarro is an 85-year-old male with past medical history of diastolic congestive heart failure, severe pulmonary hypertension, obstructive sleep apnea, admitted to intensive care unit (ICU) with septic shock secondary to Clostridium (C.) difficile colitis, hypercapnic respiratory failure requiring bilevel positive airway pressure (BiPAP) and acute oliguric renal failure. 1. Acute oliguric renal failure superimposed on chronic kidney disease, secondary to sepsis. Patient's urinary output has improved. It is yet to be known how long this will continue for. But as of right now, his pressures are holding stead and he is not requiring any pressors. His pH has improved with IV bicarbonate. We will discontinue his IV fluids, as CO2 is trending up. His CVP was adequate at 12 this morning. If pressures remain stable, we will consider giving him Lasix but this will be determined in the next 24-48 hours. It appears like his renal function has turned a corner, as his GFR has improved and electrolytes remain stable. 2. Septic shock secondary to C. difficile colitis. He is on IV Flagyl and Dificid. He has been off of pressors since yesterday morning. Blood pressures will continue to be monitored, but they have been steady throughout the night. 3. Anemia. Hemoglobin was 6.8 this morning. He will benefit from 2 units of packed red blood cells. No signs of acute bleeding. He also received a unit of pRBCs on 10/01. 4. Acute on chronic respiratory failure, with a mixed acidosis. The patient has chronic obstructive pulmonary disease (COPD) with significant pleural plaquing, bilateral pleural effusions and pulmonary hypertension. His chest x-ray looks to be unchanged, but it has been difficult this morning to get him off of BiPAP as he desaturates to the low 70s. Pulmonary is managing. DISPOSITION: Mr. Navarro's renal function seems to have turned around, as his GFR has improved and his urinary output has also improved. This will need to be monitored over the next few days to see if this improvement continues. He is no longer requiring pressors, however continues to require BiPAP. Primary team is working on establishing his CODE STATUS. GME ATTESTATION GME ATTESTATION My preceptor for this patient encounter was physically present in the building during the encounter and was fully available. As needed, all aspects of the patient interview, examination, medical decision making process, and medical care plan development were reviewed and approved by the preceptor. Preceptor is aware and concurs with the plan as stated in the body of this note and will attest to such by his/her cosignature. MARK WOOD DO Oct 05, 2016 12:16 MARK WOOD DO Oct 05, 2016 12:16
[2016-10-05] MEDS: cefTRIAXone SOD 1 GM in D5W MINI-BAG PLUS 50 ML IV SCH (14:11)
[2016-10-05] MEDS: LATANOPROST 0.005% OPHTH SOLN 2.5 ML OU SCH (21:00)
[2016-10-05] MEDS: HALOPERIDOL 5 MG/ML VIAL (J1630) IV PRN (22:30)
[2016-10-06] VITALS (14 sets, daily range): BP systolic 94–149; BP diastolic 50–80; O2SAT 91–98
[2016-10-06] MEDS: metroNIDAZOLE 500 MG in APPROPRIATE DILUENT 1 EA IV SCH ×3 (05:24→21:52)
[2016-10-06] MEDS: HumaLOG INSULIN (NovoLOG) PER UNIT SC SCH ×4 (05:25→17:45)
[2016-10-06] MEDS: SODIUM CHLORIDE 0.9% INJ 10 ML SYR IV SCH ×3 (05:25→21:51)
[2016-10-06 05:51] LABS: BASO % 0.3 % (0.0-1.0); EOS % 0.3 % (0.0-3.0); LARGE UNSTAINED CELL # 0.2 K/mm3 (0.0-0.4); LARGE UNSTAINED CELL % 4.1 % (0.0-4.0); LYMPH # 0.3 K/mm3 (1.5-4.5); LYMPH % 5.4 % (24.0-44.0); MEAN CORPUSCULAR HEMOGLOBIN 28.8 pg (27.0-33.0); MEAN CORPUSCULAR HGB CONC 31.3 g/dl (32.0-36.5); MEAN CORPUSCULAR VOLUME 91.8 fl (80.0-96.0); MONO # 0.4 K/mm3 (0.0-0.8); MONO % 7.5 % (0.0-5.0); NEUTROPHILS # 4.8 K/mm3 (1.8-7.7); NEUTROPHILS % 82.4 % (36.0-66.0); PLATELET COUNT, AUTOMATED 151 k/mm3 (150-450); RED CELL DISTRIBUTION WIDTH 17.8 % (11.5-14.5); WHITE BLOOD COUNT 5.9 K/mm3 (4.0-10.0)
[2016-10-06 06:09] LABS: CALCIUM LEVEL 7.7 MG/DL (8.8-10.2); CREATININE FOR GFR 1.92 MG/DL (0.70-1.30); GLOMERULAR FILTRATION RATE 43.2 (>35); PHOSPHORUS LEVEL 2.2 MG/DL (2.5-4.9); POTASSIUM SERUM 3.9 MEQ/L (3.5-5.1)
[2016-10-06] MEDS: LACTOBACILLUS ACIDOPHILUS CAP (BACID) PO SCH ×3 (08:45→17:26)
[2016-10-06] MEDS: HALOPERIDOL 0.5 MG TAB PO SCH ×2 (08:46→20:23)
[2016-10-06] MEDS: ASPIRIN 81 MG ENTERIC TAB PO SCH (08:46)
[2016-10-06] MEDS: FIDAXOMICIN 200 MG TAB (DIFICID) PO SCH ×2 (08:46→20:22)
[2016-10-06] MEDS: PANTOPRAZOLE 40MG INJ (PROTONIX) (C9113) IV SCH (08:53)
[2016-10-06] MEDS ORDERED: FUROSEMIDE 40 MG/4 ML VIAL (J1940) IV ONE (10:30)
--- NOTE | 2016-10-06 12:22 | IPNPDOC ---
Date/Time Seen The patient was seen on 10/06/16 at 12:08. Progress Note DATE OF ENCOUNTER: 10/06/2016 SUBJECTIVE: Mr. Navarro was seen this morning at bedside. He remains on BiPAP and dyspnea is unchanged. His blood pressures have remained stable off of Levophed. He has one documented bowel movement yesterday. He has mittens on his hands as sometimes he does get agitated. No other acute symptoms. He continues to have generalized edema. OBJECTIVE: Vital Signs Date Time Temp Pulse Resp B/P Pulse Ox O2 Delivery O2 Flow Rate FiO2 10/06/16 11:10 55 10/06/16 08:00 97.1 87 21 146/75 94 NIPPV (BIPAP/CPAP) 5.0 I&O- Last 24 Hours up to 6 AM 10/06/16 06:00 Intake Total 1070 ml Output Total 895 ml Balance 175 ml GENERAL: Laying in bed, he does not appear to be in any acute distress. HEENT: Normocephalic, atraumatic. Extraocular muscles are intact. Mucosa is dry. NECK: Supple. Jugular veins are elevated up to his earlobe. He has a right IJ in place. HEART: Irregularly irregular. Heart sounds are distant. LUNGS: Diminished breath sounds bilaterally. No wheezing appreciated. ABDOMEN: Soft, nontender, nondistended. Positive bowel sounds. No rebound, guarding or rigidity. EXTREMITIES: He has upper and lower extremity edema. No cyanosis. Pulses are palpable. NEUROLOGIC: No focal deficits. LABORATORY DATA: 10/06/16 05:16 Albumin 2.0L, Anion Gap 8, Mean Corpuscular Volume 91.8, Mean Corpuscular Hemoglobin 28.8, Mean Corpuscular Hemoglobin Concent 31.3L, Red Cell Distribution Width 17.8H, Calcium Level 7.7L, Glomerular Filtration Rate 43.2, Phosphorus Level 2.2L ASSESSMENT AND PLAN: Mr. Navarro is an 85-year-old male with past medical history of diastolic congestive heart failure, severe pulmonary hypertension, obstructive sleep apnea, admitted to intensive care unit (ICU) with septic shock secondary to Clostridium (C.) difficile colitis, hypercapnic respiratory failure requiring bilevel positive airway pressure (BiPAP) and acute oliguric renal failure. 1. Acute renal failure superimposed on chronic kidney disease, secondary to sepsis. Patient's urinary output has improved and he is nonoliguric at this time. His creatinine continues to trend downwards. He is significantly volume overloaded and now that his blood pressures are more stable, we will attempt to diurese. He will be given a one-time dose of 40 mg of Lasix. We will reassess his urinary output later on today to see if more diuretics can be given. This will be done cautiously as to not over aggressively diureses him and cause hypotension. Electrolytes should be monitored closely. 2. Septic shock secondary to C. difficile colitis. This appears to be improved now that he is no longer requiring pressors. He remains on IV Flagyl and Dificid. Bowel movements have tapered down. 3. 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 He is status post 2 units of packed red blood cells on 10/05. No signs of acute bleeding. 4. Acute on chronic respiratory failure, with a mixed acidosis. The patient has chronic obstructive pulmonary disease (COPD) with significant pleural plaquing, bilateral pleural effusions and pulmonary hypertension. His chest x-ray looks to be unchanged, but he has not been able to come off of BiPAP. He is volume overloaded and hopefully with diuresis, his respiratory status can improved. 5. Mild hypernatremia. He has poor oral intake. This will need to be monitored closely as he will be receiving a dose of Lasix. GME ATTESTATION GME ATTESTATION My preceptor for this patient encounter was physically present in the building during the encounter and was fully available. As needed, all aspects of the patient interview, examination, medical decision making process, and medical care plan development were reviewed and approved by the preceptor. Preceptor is aware and concurs with the plan as stated in the body of this note and will attest to such by his/her cosignature. MARK WOOD DO Oct 06, 2016 12:22
[2016-10-06] MEDS ORDERED: POTASSIUM CHLORIDE 10% LIQ 20 MEQ/15 ML UDC PO ONE (12:45)
[2016-10-06] MEDS: cefTRIAXone SOD 1 GM in D5W MINI-BAG PLUS 50 ML IV SCH (13:58)
[2016-10-06] MEDS: LATANOPROST 0.005% OPHTH SOLN 2.5 ML OU SCH (20:23)
[2016-10-07] VITALS (16 sets, daily range): BP systolic 101–150; BP diastolic 55–74; O2SAT 97–98
[2016-10-07] MEDS: metroNIDAZOLE 500 MG in APPROPRIATE DILUENT 1 EA IV SCH ×3 (05:22→21:49)
[2016-10-07] MEDS: SODIUM CHLORIDE 0.9% INJ 10 ML SYR IV SCH ×3 (05:22→21:49)
[2016-10-07] MEDS: HumaLOG INSULIN (NovoLOG) PER UNIT SC SCH ×3 (05:22→17:48)
[2016-10-07 05:56] LABS: ALBUMIN 2.1 GM/DL (3.2-5.2); CALCIUM LEVEL 8.1 MG/DL (8.8-10.2); CREATININE FOR GFR 1.76 MG/DL (0.70-1.30); GLOMERULAR FILTRATION RATE 47.7 (>35); PHOSPHORUS LEVEL 2.8 MG/DL (2.5-4.9); POTASSIUM SERUM 4.2 MEQ/L (3.5-5.1)
[2016-10-07 06:03] LABS: MEAN CORPUSCULAR HEMOGLOBIN 29.1 pg (27.0-33.0); MEAN CORPUSCULAR HGB CONC 31.2 g/dl (32.0-36.5); MEAN CORPUSCULAR VOLUME 93.4 fl (80.0-96.0); PLATELET COUNT, AUTOMATED 160 k/mm3 (150-450); RED CELL DISTRIBUTION WIDTH 17.5 % (11.5-14.5); WHITE BLOOD COUNT 7.8 K/mm3 (4.0-10.0)
[2016-10-07 06:34] LABS: EOSINOPHILS 2 % (0-5)
[2016-10-07 06:36] LABS: ANISOCYTOSIS 1+; HYPOCHROMASIA 1+
[2016-10-07 06:37] LABS: POLYCHROMASIA 1+
[2016-10-07] MEDS ORDERED: D5W 1,000 ML IV SCH ×2 (07:30→10:15)
[2016-10-07 08:26] LABS: ABG BASE EXCESS 5.9 (-2.0-2.0); ABG HCO3 33.1 MEQ/L (22.0-26.0); ABG PARTIAL PRESSURE O2 65.8 mmHg (75.0-100.0); ABG STANDARD HCO3 29.7 MEQ/L (22.0-26.0); ABG pH (ARTERIAL) 7.332 UNITS (7.350-7.450)
[2016-10-07 08:31] LABS: ABG PARTIAL PRESSURE CO2 63.9 mmHg (35.0-45.0)
[2016-10-07] MEDS: LACTOBACILLUS ACIDOPHILUS CAP (BACID) PO SCH ×3 (08:34→17:10)
[2016-10-07] MEDS: FIDAXOMICIN 200 MG TAB (DIFICID) PO SCH ×2 (08:34→20:21)
[2016-10-07] MEDS: ASPIRIN 81 MG ENTERIC TAB PO SCH (08:34)
[2016-10-07] MEDS: HALOPERIDOL 0.5 MG TAB PO SCH ×2 (08:34→20:21)
[2016-10-07] MEDS: PANTOPRAZOLE 40MG INJ (PROTONIX) (C9113) IV SCH (08:38)
[2016-10-07] MEDS: HALOPERIDOL 5 MG/ML VIAL (J1630) IV PRN (11:47)
[2016-10-07] MEDS ORDERED: FUROSEMIDE injection 250 MG in D5W 225 ML IV SCH (12:00)
[2016-10-07] MEDS: cefTRIAXone SOD 1 GM in D5W MINI-BAG PLUS 50 ML IV SCH (14:09)
[2016-10-07] MEDS: NS 500 ML IV SCH (17:10)
[2016-10-07] MEDS ORDERED: POTASSIUM CHLORIDE IV SCH ×8 (18:00)
[2016-10-07] MEDS ORDERED: SODIUM ACETATE IV SCH ×8 (18:00)
[2016-10-07] MEDS ORDERED: FAT EMULSION IV 20% 500 ML IV SCH (18:00)
[2016-10-07] MEDS ORDERED: [UNRECOGNIZED DRUG - OTHER] IV SCH ×8 (18:00)
[2016-10-07] MEDS: LATANOPROST 0.005% OPHTH SOLN 2.5 ML OU SCH (21:49)
[2016-10-08] VITALS (13 sets, daily range): BP systolic 107–169; BP diastolic 52–76; O2SAT 97
[2016-10-08] MEDS: HumaLOG INSULIN (NovoLOG) PER UNIT SC SCH ×4 (01:29→17:54)
[2016-10-08 04:35] LABS: MEAN CORPUSCULAR HEMOGLOBIN 28.3 pg (27.0-33.0); MEAN CORPUSCULAR HGB CONC 30.3 g/dl (32.0-36.5); MEAN CORPUSCULAR VOLUME 93.6 fl (80.0-96.0); PLATELET COUNT, AUTOMATED 164 k/mm3 (150-450); RED CELL DISTRIBUTION WIDTH 17.5 % (11.5-14.5)
[2016-10-08 04:50] LABS: ALBUMIN 1.9 GM/DL (3.2-5.2); CALCIUM LEVEL 7.9 MG/DL (8.8-10.2); CREATININE FOR GFR 1.6 MG/DL (0.70-1.30); GLOMERULAR FILTRATION RATE 53.3 (>35); PHOSPHORUS LEVEL 1.6 MG/DL (2.5-4.9); POTASSIUM SERUM 3.5 MEQ/L (3.5-5.1)
[2016-10-08] MEDS: SODIUM CHLORIDE 0.9% INJ 10 ML SYR IV SCH ×3 (05:32→22:04)
[2016-10-08] MEDS: metroNIDAZOLE 500 MG in APPROPRIATE DILUENT 1 EA IV SCH ×2 (05:32→14:36)
[2016-10-08 05:34] LABS: BANDS 3 % (< 11); NUCLEATED RED BLOOD CELL 1 % (0-0)
[2016-10-08 05:35] LABS: ANISOCYTOSIS 1+; HYPOCHROMASIA 2+
[2016-10-08 08:00] LABS: ABG BASE EXCESS 11.6 (-2.0-2.0); ABG HCO3 37.7 MEQ/L (22.0-26.0); ABG PARTIAL PRESSURE CO2 58.6 mmHg (35.0-45.0); ABG PARTIAL PRESSURE O2 62.6 mmHg (75.0-100.0); ABG STANDARD HCO3 35.2 MEQ/L (22.0-26.0); ABG TOTAL CO2 39.5 MEQ/L (23.0-31.0); ABG pH (ARTERIAL) 7.426 UNITS (7.350-7.450)
--- NOTE | 2016-10-08 08:29 | IPN ---
DATE: 10/06/2016 The patient is seen and examined at the bedside. Chart has been reviewed. Per nursing, this morning, the patient had been increasingly agitated and combative yesterday, receiving intravenous Haldol. The patient desaturated down to 28% due to refusal to place his tabletop BIPAP on. This morning, the patient is much more cooperative. He has increasing bowel movements last night and is currently still being treated for Clostridium (C.) difficile colitis. Urine output has been adequate at 75 to about 120 per hour. This morning, he complains of worsening shortness of breath on the BIPAP, chronic pain. VITAL SIGNS: Temperature 97.4, pulse 95, respiratory rate 20, blood pressure 134/62, 92% on BIPAP, flow rate of 5 liters. GENERAL: The patient is disoriented, awake, alert and oriented to person only, combative, currently with mitts on, BiPAP at the bedside, tabletop at the bedside. LUNGS: Diminished air entry is equal. No wheezing noted. HEART: S1, S2. Sinus rhythm. ABDOMEN: Obese, soft, nontender, nondistended. Positive bowel sounds. Right IJ noted. EXTREMITIES: Chronic pitting edema, generalized edema, 2+. LABORATORY DATA: White count 5.9, hemoglobin 9.3, hematocrit 29.6, platelet count 151. Sodium 146, potassium 2.9, chloride 107, bicarbonate 31, BUN 63, creatinine 1.92, glucose of 117. Input and output: Input 1670 and output 950, one loose bowel movement. Current weight 101.5 kg. Admission weight of 86.1 kg. Chest x-ray on 10/05/2016: Chronic calcified pleural plaques, bibasilar atelectasis, infiltrate, bilateral effusions, right central venous catheter noted. ASSESSMENT AND PLAN: This is an 85-year-old, DO NOT RESUSCITATE, DO NOT INTUBATE male with a history of chronic kidney disease stage III, obstructive sleep apnea, noncompliant with CPAP, restrictive lung disease, severe pulmonary hypertension, diastolic heart failure, admitted for persistent diarrhea and was found to have Clostridium (C.) difficile colitis with acute on chronic renal failure and septic shock. The patient was initially oliguric and was placed on bicarbonate drip and BiPAP therapy due to severe metabolic acidosis during the admission, the patient developed heparin induced thrombocytopenia (HIT), severe anemia and requiring packed red blood cell transfusion, prior history of atrial fibrillation, chronic respiratory failure on 2 liters of oxygen, prostate cancer , reflux, diverticulosis, spinal stenosis, chronic back pain, glaucoma, prostatectomy, bilateral knee replacements, inguinal hernia repair, bilateral cataract repair, currently with the following issues: 1. Septic shock secondary to Clostridium (C.) difficile colitis with acute oliguric renal failure superimposed on chronic kidney disease, resolved. The patient is currently off of the Levophed drip for the past 48 hours. He is continued on full supportive care with treatment for C difficile colitis with fidaxomicin. Renal failure is improved. The patient is urinating more than 1 liter daily. Bicarbonate is normalized. 2. Acute on chronic respiratory failure, history of sleep apnea, severe pulmonary hypertension. The patient is still requiring support via the tabletop , previously managed by Dr. Baer, currently managed by Dr. Law. The patient is unstable and unable to tolerate nasal cannula. 3. Acute on chronic renal failure secondary to septic shock from C difficile colitis. The patient has been on intravenous bicarbonate drip, managed by Dr. Box. Defer to Dr. Box for further management. 4. History of chronic obstructive pulmonary disease (COPD) with chronic hypoxic respiratory failure with pleural plaquing, bilateral pleural effusions, currently on tabletop and managed by pulmonary. Continue with conservative management. 5. Anemia. The patient received no active signs of bleeding. The patient has received, during this admission, 3 units of packed red blood cell transfusion. 6. Clostridium (C.) difficile colitis. The patient is currently on fidaxomicin and intravenous Flagyl. He has been off of the pressors for the past 48 hours and appears to be doing well. 7. Haemophilus parainfluenza in the sputum and Klebsiella oxytoca urinary tract infection (UTI), with chest x-ray showing bilateral basilar infiltrates versus atelectases. Currently on intravenous ceftriaxone. 8. Heparin induced thrombocytopenia (HIT). Avoid heparin products. CODE STATUS: The patient is DO NOT RESUSCITATE, DO NOT INTUBATE. MTDD
--- NOTE | 2016-10-08 08:32 | IPN ---
DATE: 10/07/2016 Patient continues to desaturate when he is removed from the tabletop. He is unable to tolerate nasal cannula for more than a few minutes. He continues to be disoriented and confused, asked for a sip of water yesterday, was easily redirected however and resumed the BiPAP therapy. Appears to be much more lethargic today, although he is responsive. The patient is not conversant. Urine output has been adequate, 1.3 liters out over the past 24 hours. The patient's blood pressure is well maintained without vasopressor at 108 to 129 systolic. The patient has had no diarrhea overnight, but had three bowel movements yesterday morning. VITAL SIGNS: Temperature 96.4, pulse 83, respiratory rate 22, blood pressure 108/57, 96% on 8 liters BiPAP. The patient desaturates to 81 to 88% on nasal cannula. GENERAL: The patient is in moderate respiratory distress, requiring BiPAP therapy, quite lethargic today than yesterday. Not answering questions appropriately. Disoriented to place and time. Oriented to person only. Answers yes or no. LUNGS: Diminished breath sounds. No wheezing noted. Air entry is equal. HEART: S1, S2. Irregularly irregular. ABDOMEN: Soft, nontender, nondistended. Positive bowel sounds. Obese. No rebound, guarding or rigidity. EXTREMITIES: Chronic edema, generalized. White count 7.8, hemoglobin 9.3, hematocrit 29, platelet count 160. Sodium 149, potassium 4.2, chloride 109, bicarbonate 33, BUN 62, creatinine 1.76 , glucose of 106. Microbiology: Klebsiella on 10/01/2016 urine culture, Staphylococcus epidermidis 10/01/2016 blood culture, most likely contamination. Haemophilus parainfluenza sputum culture 10/06/2016. IMAGING STUDIES: Chest x-ray 10/05/2016 essentially stable examination. Chronic calcified pleural plaques. Cardiac silhouette is prominent. Bibasilar atelectasis, infiltrates with bilateral pleural effusions unchanged. Calcifications thoracic aorta. Right central venous catheter is noted. Input and output: Input 310, output 1335, negative 1025. Current weight 102.1 kg. Admission weight of 86.18 kg. ASSESSMENT AND PLAN: This is an 85-year-old male, DO NOT RESUSCITATE, DO NOT INTUBATE, with a history of chronic kidney disease, obstructive sleep apnea, noncompliant with CPAP, restrictive lung disease with severe pulmonary hypertension, diastolic heart failure, admitted for persistent diarrhea and was found to have Clostridium (C.) difficile colitis with acute on chronic renal failure, septic shock requiring vasopressor, Levophed, for a few days and was oliguric. The patient had severe metabolic acidosis requiring BiPAP therapy with acute on chronic respiratory failure. During the admission, the patient had been on bicarbonate drip and tabletop BiPAP therapy with vasopressor and antibiotics for C difficile. The patient then developed Klebsiella in the urine and Haemophilus parainfluenza in the sputum with chest x-ray showing bilateral infiltrates versus atelectasis and calcified pleural plaques. The patient will be started on IV ceftriaxone and has been off the Levophed drip for the past 4 days. However, the patient continues to desaturate on nasal cannula down to 81 to 88% and is currently requiring full respiratory support via tabletop at 8 liters of oxygen. The patient has had a prior history of atrial fibrillation, chronic respiratory failure on 2 liters of oxygen, prostate cancer, reflux, diverticulosis, spinal stenosis, chronic back pain, glaucoma, prostatectomy, bilateral knee replacements, inguinal hernia repair, bilateral cataract repair and currently with the following issues: 1. Septic shock secondary to C difficile with oliguric renal failure superimposed on chronic kidney disease, resolved. The patient is currently off the Levophed drop for the past 4 days. Blood pressure appears to be maintained at 108 to about 128. The patient is currently receiving fidaxomicin, as well as intravenous ceftriaxone for Haemophilus parainfluenza found in the sputum. Chest x-ray showing bilateral infiltrates versus atelectasis, as well as Klebsiella oxytoca in the urine culture. White count has been normal. He has been afebrile. Dr. Scarlett Berger is managing current medications. 2. C difficile colitis causing severe dehydration with acute oliguric renal failure. Oliguria has resolved. The patient is currently maintaining his blood pressure, not requiring vasopressors. He is continued on fidaxomicin per Dr. Berger. No bowel movement overnight. The patient had three bowel movements yesterday, which were loose. He continues to be stable. 3. Acute on chronic renal failure, improving. Dr. Box is managing his volume status. The patient is fluid overloaded with 3+ edema. He has been off the Levophed drip for the past [address] Box for fluid management. 4. History of chronic obstructive pulmonary disease (COPD) with chronic hypoxic respiratory failure on 2 liters of oxygen, currently with acute need for BiPAP therapy. Unable to be off of the BiPAP and desaturating to 81%. Placed on nasal cannula. He has a history of severe pulmonary hypertension, significant pleural plaquing, bilateral pleural effusions. BiPAP is managed by Dr. Law. Continue with full supportive care, per family and patient's request. 5. Anemia. The patient has required 2 units of red blood cells. No active signs of bleeding. Continue to monitor for now. 6. Heparin induced thrombocytopenia (HIT). Avoid heparin products. Monitor for any active bleeding. The patient's platelet count has improved. Deep vein thrombosis (DVT) prophylaxis with compression stockings. 7. Acute encephalopathy, most likely secondary to multiorgan failure. The patient is currently recovered from septic shock. Renal failure is improving. C difficile colitis is still being treated with fidaxomicin 200 twice a day and currently on intravenous ceftriaxone for Haemophilus parainfluenza in the sputum , as well as Klebsiella in the urine. The patient remains with poor prognosis in light of the patient's dependence on the tabletop and persistent desaturations on nasal cannula. MTDD
--- NOTE | 2016-10-08 08:33 | IPN ---
DATE: 10/07/2016 Mr. Navarro is seen this morning on his bedside. He remains on BiPAP and has been somewhat lethargic. Nursing staff reports that he has been refusing to take medications or meals. Apparently, yesterday his BiPAP was removed only for a minute and he became acutely hypoxemic. He has remained off pressors and has been afebrile. His respiratory status has been the main issue now due to generalized volume overload and edema in addition to his chronic respiratory problems with lung disease. On physical examination, temperature 97.4 degrees Fahrenheit, heart rate 90 per minute and respiratory rate 20 per minute. The patient is using BiPAP. His head is atraumatic. Neck veins are difficult to be assessed and he has a central line in his right internal jugular vein. Neck is supple and trachea is midline. Heart sounds are irregular. Lungs with diminished breath sounds bilaterally. Abdomen is soft and mildly distended. Bowel sounds are normal. Extremities have no cyanosis or clubbing. He has generalized edema. Neurologically, he is opening his eyes, but unable to cooperate for a complete neurological evaluation. Intake and output records from yesterday showed total intake only 310 and output 1335. His labs show WBC count 7.8, hemoglobin 9.3 and hematocrit 29.8. Platelets 160. Sodium 149 and potassium 4.2. CO2 of 33, BUN 62 and creatinine 1.76. Calcium level is 8.1 and phosphorus 2.8. Blood gas today showed a pH of 7.33, pCO2 of 63.9, pO2 65.8 and bicarb 29.7. PROBLEMS: 1. Acute renal failure superimposed on chronic kidney disease. At this point, his kidney function is gradually improving and he has further improvement since yesterday. His urine output is reasonable. 2. Respiratory failure. Most likely, this is related to chronic obstructive pulmonary disease (COPD), chronic restrictive lung disease and volume overload with pulmonary edema. We will try to diurese him using caution due to hypernatremia. He is being started on IV Lasix drip 10 mg an hour and his urine output will be monitored. 3. Hypernatremia. Sodium level went up to 149 related to diuresis. The patient has been started on intravenous fluid D5W since this morning at 50 per hour. There is a plan for starting TPN, at which time, his IV fluid will be stopped at 6:00 p.m. when TPN gets started. 4. Nutrition. Dr. Law has requested to start TPN as the patient has not been receiving any nutrition. Special TPN formula is being ordered, keeping in view his hypernatremia and volume overload. 5. Metabolic acidosis. His acidosis has improved and most recent blood gas showed a pH of 7.33. He has mostly respiratory acidosis related to respiratory failure which is likely to improve with improved volume correction. His overall prognosis remains poor, though he is making some improvement in his renal function.
[2016-10-08] MEDS: LACTOBACILLUS ACIDOPHILUS CAP (BACID) PO SCH ×3 (09:13→17:53)
[2016-10-08] MEDS: ASPIRIN 81 MG ENTERIC TAB PO SCH (09:13)
[2016-10-08] MEDS: FIDAXOMICIN 200 MG TAB (DIFICID) PO SCH ×2 (09:13→22:03)
[2016-10-08] MEDS: HALOPERIDOL 0.5 MG TAB PO SCH ×2 (09:13→22:03)
[2016-10-08] MEDS: PANTOPRAZOLE 40MG INJ (PROTONIX) (C9113) IV SCH (09:13)
[2016-10-08] MEDS ORDERED: D5W 1,000 ML IV SCH (09:45)
--- NOTE | 2016-10-08 10:37 | IPNPDOC ---
Date/Time Seen The patient was seen on 10/08/16 at 10:16. Progress Note DATE OF ENCOUNTER: 10/08/2016 SUBJECTIVE: Mr. Navarro was seen this morning at bedside. He is currently on nasal cannula and off of BiPAP. He has been diuresing well on Lasix drip. He is sitting up in the chair and his blood pressure has remained stable. He is afebrile. No acute overnight events and no acute complaints. He did ask a few questions during the encounter. No chest pain. Breathing is stable. No nausea, vomiting, abdominal pain. Diarrhea has significantly improved. OBJECTIVE: Vital Signs Date Time Temp Pulse Resp B/P Pulse Ox O2 Delivery O2 Flow Rate FiO2 10/08/16 08:00 96.0 89 24 128/61 99 Nasal Cannula 6.0 I&O- Last 24 Hours up to 6 AM 10/08/16 05:59 Intake Total 1430 ml Output Total 3110 ml Balance -1680 ml GENERAL: Sitting up in chair, in no acute distress. HEENT: Normocephalic, atraumatic. Extraocular muscles are intact. Mucosa is dry. NECK: Supple. Jugular veins are elevated. He has a right IJ in place. HEART: Irregularly irregular. I could not appreciate a murmur. LUNGS: Diminished breath sounds bilaterally. No wheezing appreciated. ABDOMEN: Soft, nontender, nondistended. Positive bowel sounds. No rebound, guarding or rigidity. EXTREMITIES: He has generalized edema. No cyanosis. Pulses are palpable. NEUROLOGIC: No focal deficits. LABORATORY DATA: 10/08/16 04:15 Red Blood Count 3.10 L, Mean Corpuscular Volume 93.6, Mean Corpuscular Hemoglobin 28.3, Mean Corpuscular Hemoglobin Concentration 30.3 L, Red Cell Distribution Width 17.5 H, Albumin 1.9L, Anion Gap 3L, Calcium Level 7.9L, Glomerular Filtration Rate 53.3, Phosphorus Level 1.6L 10/08/16 07:52: Arterial Blood pH 7.426, Arterial Blood Partial Pressure CO2 58.6H, Arterial Blood Partial Pressure O2 62.6L, Arterial Blood Total CO2 39.5H, Arterial Blood HCO3 37.7H, Arterial Blood Base Excess 11.6H, Arterial Blood Oxygen Saturation 93.0L, Blood Gas Bicarbonate Standard 35.2H ASSESSMENT AND PLAN: Mr. Navarro is an 85-year-old male with past medical history of diastolic congestive heart failure, severe pulmonary hypertension, obstructive sleep apnea, admitted to intensive care unit (ICU) with septic shock secondary to Clostridium (C.) difficile colitis, hypercapnic respiratory failure requiring bilevel positive airway pressure (BiPAP) and acute oliguric renal failure. 1. Acute renal failure superimposed on chronic kidney disease, secondary to sepsis. Patient's urinary output has improved and he is nonoliguric at this time. He has already made significant urine and his Lasix strip is being discontinued. Renal function continues to improve. Vitals have remained stable. 2. Acute on chronic respiratory failure, with a nixed acidosis. The patient has significant volume overload and bilateral effusion on top of his chronic obstructive pulmonary disease with significant pleural plaquing. He has diuresed well and is no longer requiring BiPAP. His acidosis has improved, as ABG this morning show a pH of 7.4. Hopefully, with correcting his volume status , his respiratory status will improve further. 3. Hypernatremia, likely secondary to diuresis and poor oral intake. Sodium level is currently 149. He will be given D5W at a rate of 50ml per hour. This will be discontinued at 6pm for his next bag of TPN. 4. 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 He is status post 2 units of packed red blood cells on 10/05. No signs of acute bleeding. Current hemoglobin of 8.8. 5. Parenteral nutrition. This has been reordered this morning. Given his hypernatremia, sodium acetate is being discontinued and potassium is being increased. On a renal standpoint, Mr. Navarro is improving. His respiratory status remains more of a concern, but he appears to be tolerating being off of BiPAP at this time and his vitals are stable. GME ATTESTATION GME ATTESTATION My preceptor for this patient encounter was physically present in the building during the encounter and was fully available. As needed, all aspects of the patient interview, examination, medical decision making process, and medical care plan development were reviewed and approved by the preceptor. Preceptor is aware and concurs with the plan as stated in the body of this note and will attest to such by his/her cosignature. MARK WOOD DO Oct 08, 2016 10:37
--- NOTE | 2016-10-08 11:51 | IPN ---
DATE OF SERVICE: 10/08/2016 The patient continues to be disoriented, unable to state his date of . Does not know where he is but able to respond to questions very minimally. The patient has been urinating quite well over the past 24 hours, on Lasix, 2.3 liters overnight, 1.8 liters this morning. Blood pressure has been well maintained with systolic pressure of 112-128, systolic, without use of vasopressors. Levophed has been discontinued for the past 4 days. He currently has no loose bowel movements. Diarrhea has subsided. He is still requiring 6 liters of nasal cannula oxygen but did well overnight on tabletop. VITAL SIGNS: Temperature 96, pulse 89, respiratory rate 24, blood pressure 128/61, 99% on 6 liters nasal cannula. Generally, the patient is disoriented but awake and alert with purposeful movements. he is in pain at the right internal jugular (vein) (IJ) site. Otherwise, no jugular venous distention. LUNGS: Are diminished. No wheezing or rales. HEART: S1, S2, irregular. ABDOMEN: Is obese, soft, nontender, nondistended. EXTREMITIES: Decreased edema trace. White count 9, hemoglobin 8.8, hematocrit 29, platelet count 164. Sodium 149, potassium 3.5, chloride 107, bicarbonate 39, BUN 53, creatinine 1.6, glucose 175, phosphorus 1.6. Laboratory data have been reviewed, imaging studies. ASSESSMENT AND PLAN: An 85-year-old, DO NOT RESUSCITATE/DO NOT INTUBATE, with history of chronic kidney disease, sleep apnea on continuous positive airway pressure (CPAP), restrictive lung disease, history of pulmonary hypertension, diastolic heart failure, admitted for persistent diarrhea, found to have Clostridium (C) difficile colitis with septic shock requiring Levophed for a few days. The patient had severe metabolic acidosis requiring bilateral positive airway pressure (BiPAP) therapy with acute on chronic respiratory failure. During admission, the patient was on bicarbonate drip and tabletop BiPAP, vasopressor, and antibiotics for C. difficile. He then developed Klebsiella in the urine, haemophilus parainfluenzae in the sputum, with chest x-ray showing bilateral infiltrates versus atelectasis and calcified pleural plaques. The patient was started on IV ceftriaxone and has been off the Levophed drip for the past 5 days. Currently, still requiring nasal cannula but stable on tabletop. The patient has had mental status changes requiring IV haldol on Saturday and is usually not redirectable and had mittens placed. 1. Septic shock secondary to Clostridium (C) difficile, resolved. 2. Oliguric renal failure, superimposed chronic kidney disease, status post Lasix drip. Off Levophed drip. Improving. Appreciate Dr. Box's input and management. 3. Clostridium (C) difficile colitis with Klebsiella in the urine, haemophilus parainfluenzae. On intravenous (IV) ceftriaxone and fidaxomicin. Dr. Berger is managing. 4. History of chronic obstructive pulmonary disease (COPD) with chronic hypoxic respiratory failure, at baseline. 5. Obstructive sleep apnea. On tabletop at night. Managed by pulmonary. 6. Anemia. Required 2 units of red blood cells. No active signs of bleeding. 7. Heparin-induced thrombocytopenia. Avoid heparin products. 8. Acute encephalopathy secondary to multiorgan failure, improving. DISPOSITION: The patient has made a remarkable recovery but will need significant physical therapy and possible acute rehabilitation. JOSE
--- NOTE | 2016-10-08 12:04 | REP ---
Portable chest x-ray: AP semi-erect view. History: Shortness of breath. Comparison study October 05, 2016. Findings: EKG monitoring electrodes overlie the chest. A right internal jugular line terminates in the expected location of the superior vena cava. Extensive calcific pleural plaquing is again seen bilaterally. Cardiomegaly is observed. This is unchanged. There is some pleural opacity in the right base unchanged. No definite new infiltrate is seen. Impression: Chronic changes. Cardiomegaly and possible pleural effusion on the right. No definite new infiltrate. Signed by Erasto Ivan MD 10/08/2016 12:16 P
[2016-10-08] MEDS: cefTRIAXone SOD 1 GM in D5W MINI-BAG PLUS 50 ML IV SCH (14:35)
[2016-10-08] MEDS ORDERED: FAT EMULSION IV 20% 500 ML IV SCH (18:00)
[2016-10-08] MEDS ORDERED: POTASSIUM CHLORIDE IV SCH ×7 (18:00)
[2016-10-08] MEDS ORDERED: POTASSIUM PHOSPHATE IV SCH ×7 (18:00)
[2016-10-08] MEDS ORDERED: [UNRECOGNIZED DRUG - OTHER] IV SCH ×7 (18:00)
[2016-10-08] MEDS: LATANOPROST 0.005% OPHTH SOLN 2.5 ML OU SCH (22:04)
[2016-10-09] VITALS: BP 157/75
[2016-10-09] MEDS: HumaLOG INSULIN (NovoLOG) PER UNIT SC SCH ×5 (00:35→21:02)
--- NOTE | 2016-10-09 00:38 | IPN ---
DATE: 10/08/2016 Mr. Navarro seems to be doing much better. A DO NOT RESUSCITATE (DNR) over the weekend, DO NOT INTUBATE, but otherwise finally started diuresing and his kidney function has improved. His blood pressure systolic is about 120. He has been off pressors for over 4 days. He has minimal bowel movements. He had three bowel movements today that were soft, according to his nurse. He finally fell asleep with his Bipap mask We could not wake him up. According to his nurse, he is grumpy and answers some questions appropriately; others, he refuses to answer. Temperature is 96.1. Pulse 98, irregular. Respirations 26, blood pressure 169/76, oxygen saturation 95% on bilevel positive airway pressure (BiPAP). Heart: Normal S1, S2, irregular, distant. Lungs: Diminished breath sounds at the bases. Abdomen is obese, soft. Seems to be wincing whenever I push on his lower quadrants. Extremities: +1 edema, much improved. LABS: Sodium 149, potassium 3.5, chloride 107, bicarbonate 39, BUN 53, creatinine 1.6, glucose 175, calcium 7.9, phosphorus 1.6, albumin 1.9. White count 9, hemoglobin 8.8, hematocrit 29, platelets 164, 88% neutrophils, 3% bands , 2% lymphocytes. Urine culture on 10/01/2016 had Klebsiella. Blood culture had Staphylococcus epidermidis one out of two, which was a contaminant; and a sputum culture on 09/28/2016 had Haemophilus parainfluenzae with heavy growth of Haemophilus. MEDICATIONS: - IV Flagyl 500 mg every 8 hours will be discontinued. He is currently day #12. - IV ceftriaxone, currently day #6 - oral fidaxomicin IMPRESSION: 1. Severe Clostridium difficile colitis with septic shock, resolved. IV Flagyl will be discontinued. Continue fidaxomicin. 2. Oliguric renal failure superimposed on chronic kidney disease, markedly improved with Lasix drip. Creatinine is down to 1.6. 3. Haemophilus parainfluenzae bronchitis and Klebsiella in the urine. The patient is currently day #6 of IV ceftriaxone. I would discontinue that tomorrow after his last dose, as the patient is at very high risk of recurrent Clostridium difficile. I would treat him with at least 10 more days of the fidaxomicin after antibiotics have been discontinued. PLAN: Discontinue IV metronidazole. Discontinue IV Rocephin after tomorrow's dose, which would be day #7. Continue fidaxomicin for 10 more days after antibiotics are discontinued. MTDD
[2016-10-09 04:00] VITALS: BP 148/75
[2016-10-09 04:53] LABS: ADD MORPHOLOGY? YES; BASO % 0.5 % (0.0-1.0); EOS # 0.1 K/mm3 (0.0-0.50); EOS % 0.6 % (0.0-3.0); LARGE UNSTAINED CELL # 0.2 K/mm3 (0.0-0.4); LARGE UNSTAINED CELL % 2.3 % (0.0-4.0); LYMPH # 0.8 K/mm3 (1.5-4.5); LYMPH % 5.1 % (24.0-44.0); MEAN CORPUSCULAR HEMOGLOBIN 28.9 pg (27.0-33.0); MEAN CORPUSCULAR HGB CONC 30.3 g/dl (32.0-36.5); MEAN CORPUSCULAR VOLUME 95.5 fl (80.0-96.0); MONO # 0.7 K/mm3 (0.0-0.8); MONO % 6.7 % (0.0-5.0); NEUTROPHILS # 8.8 K/mm3 (1.8-7.7); NEUTROPHILS % 84.9 % (36.0-66.0); PLATELET COUNT, AUTOMATED 140 k/mm3 (150-450); RED CELL DISTRIBUTION WIDTH 18.8 % (11.5-14.5); WHITE BLOOD COUNT 10.3 K/mm3 (4.0-10.0)
[2016-10-09 05:15] LABS: ALBUMIN 1.9 GM/DL (3.2-5.2); ANION GAP 4 MEQ/L (8-16); BLOOD UREA NITROGEN 52 MG/DL (7-18); CALCIUM LEVEL 7.7 MG/DL (8.8-10.2); CARBON DIOXIDE LEVEL 39 MEQ/L (21-32); CHLORIDE LEVEL 105 MEQ/L (98-107); CREATININE FOR GFR 1.31 MG/DL (0.70-1.30); GLOMERULAR FILTRATION RATE > 60.0 (>35); GLUCOSE, FASTING 159 MG/DL (83-110); PHOSPHORUS LEVEL 2.3 MG/DL (2.5-4.9); POTASSIUM SERUM 3.8 MEQ/L (3.5-5.1); SODIUM LEVEL 148 MEQ/L (136-145)
[2016-10-09 05:26] LABS: ANISOCYTOSIS 2+; HYPOCHROMASIA 3+
[2016-10-09] MEDS: SODIUM CHLORIDE 0.9% INJ 10 ML SYR IV SCH ×3 (06:32→21:24)
[2016-10-09 08:00] VITALS: BP 130/93
[2016-10-09] MEDS: FIDAXOMICIN 200 MG TAB (DIFICID) PO SCH ×2 (08:06→21:24)
[2016-10-09] MEDS: HALOPERIDOL 0.5 MG TAB PO SCH ×2 (08:06→21:24)
[2016-10-09] MEDS: LACTOBACILLUS ACIDOPHILUS CAP (BACID) PO SCH ×3 (08:06→17:17)
[2016-10-09] MEDS: ASPIRIN 81 MG ENTERIC TAB PO SCH (08:06)
[2016-10-09] MEDS: PANTOPRAZOLE 40MG TAB (PROTONIX) PO SCH (09:40)
[2016-10-09] MEDS ORDERED: FUROSEMIDE 100 MG/10 ML VIAL (J1940) IV ONE (10:00)
[2016-10-09] MEDS: D5W 1,000 ML IV SCH (10:39)
[2016-10-09 12:00] VITALS: BP 126/75
[2016-10-09] MEDS ORDERED: cefTRIAXone SOD 1 GM in D5W MINI-BAG PLUS 50 ML IV SCH (14:00)
[2016-10-09 16:00] VITALS: BP 140/68
[2016-10-09] MEDS ORDERED: FAT EMULSION IV 20% 500 ML IV SCH (18:00)
[2016-10-09] MEDS ORDERED: POTASSIUM PHOSPHATE IV SCH ×5 (18:00)
[2016-10-09] MEDS ORDERED: POTASSIUM CHLORIDE IV SCH ×5 (18:00)
[2016-10-09] MEDS ORDERED: HumaLOG INSULIN (NovoLOG) PER UNIT SC SCH (18:00)
[2016-10-09] MEDS ORDERED: [UNRECOGNIZED DRUG - OTHER] IV SCH ×5 (18:00)
--- NOTE | 2016-10-09 19:26 | REP ---
PICC LINE INSERTION WITH SITE-RITE: The procedure was performed under the direct supervision of Dr. Ivan. The procedure was performed in the ICU at the bedside. The risks and benefits of the procedure were explained to the patient and informed consent was obtained. The patient was unable to sign and therefore verbal consent was obtained. The right brachial vein was localized using ultrasound guidance. The skin was prepped and draped in a sterile fashion. 2% Lidocaine was used as a local anesthetic. Using ultrasound guidance the brachial vein was cannulated and a 0.018 guidewire was inserted. The needle was removed and a 5.5-Occitan dilator and peel-away sheath was inserted over the guidewire. A 5.5-Occitan dual lumen catheter was cut to a length of 40 cm. The dilator was removed and the catheter was inserted over the guidewire. A portable chest x-ray was performed and the image demonstrates the tip of the catheter to be in the SVC. The peel-away sheath was removed and the catheter with flushed with heparinized saline as per hospital protocol. The catheter was affixed to the skin and a sterile dressing was applied. The patient tolerated the procedure well and there were no immediate complications. Reviewed by SIGIFREDO Ragsdale 10/10/2016 02:03 PEdited and Signed by Erasto Ivan MD 10/10/2016 02:25 P
[2016-10-09 20:18] VITALS: BP 158/70
--- NOTE | 2016-10-09 21:10 | IPN ---
DATE OF VISIT: 10/09/2016 SUBJECTIVE: The patient is seen and examined in the room today. The patient is able to finish half of his breakfast. The patient using table top bilevel positive airway pressure (BiPAP) at night and no issues are reported. The patient has been off the Lasix drip and pressor for the past several days. No acute events are reported overnight. OBJECTIVE: VITAL SIGNS: Temperature 96.2, pulse 91, respirations 22, blood pressure 148/75, nasal intermittent positive pressure ventilation (NIPPV). GENERAL: Fatigue, no sign of acute distress. Alert times three. HEENT: Normocephalic atraumatic. Dry oral mucosa. Extraocular muscles intact. LUNGS: Positive crackles in the lower back. No wheezes. Lung sounds diminished. CARDIOVASCULAR: Irregular, irregular. Positive S1, S2. ABDOMEN: Obese, soft, nontender, nondistended. EXTREMITIES: Positive pitting edema bilaterally, most significant in upper extremities. Central line in the right internal jugular (IJ). LABORATORY DATA: WBC 10.3, hemoglobin 8.9, hematocrit 29.4, platelet count is 140. Sodium 148, potassium 3.8, chloride 105, carbon dioxide is 39, BUN 52, creatinine 1.31, GFR greater than 60, fasting glucose 159. Calcium 7.7, phosphorus 2.3, albumin 1.9. ASSESSMENT AND PLAN: 1. Septic shock secondary to Clostridium difficile colitis. The patient has been off the pressor for the past five days. Blood pressure maintained at satisfactory range. The patient is continued on the Clostridium difficile treatment. 2. Oliguric renal failure superimposed on chronic kidney disease, status post Lasix drip. The Lasix drip has been discontinued. The patient has good urinary output. Renal function continues to improve. We appreciate Dr. Box's assistance. 3. Clostridium difficile colitis. Infectious disease physician, Dr. Berger has been consulted. The patient is currently on fidaxomicin. The patient's intravenous (IV) Flagyl has been discontinued. The patient was by mouth vancomycin previously. 4. Klebsiella urinary tract infection (UTI). Today will be day seven IV Rocephin. Per Dr. Berger's recommendation the last dose of Rocephin will be today, October 09, 2016. 5. Haemophilus parainfluenzae bronchitis. The patient's Lasix and IV Rocephin will be discontinued today per infectious disease specialist recommendation. 6. Obstructive sleep apnea (ELBA). Table top nightly. Managed by pulmonary. 7. Anemia. Status post blood transfusion. No sign of acute bleeding. 8. Heparin induced thrombocytopenia (HIT). Will avoid heparin. 9. Acute encephalopathy secondary to multiorgan failure. The patient is currently alert and oriented times three, able to follow commands and answer questions. 10. Deep venous thrombosis (DVT) prophylaxis. On thromboembolic deterrent stockings (TEDs), sequential compression device. DISPOSITION: The patient shows significant improvement. Will downgrade to the progressive care unit (PCU) today. The patient will continue to follow with physical therapy.
[2016-10-09] MEDS: LATANOPROST 0.005% OPHTH SOLN 2.5 ML OU SCH (21:24)
--- NOTE | 2016-10-09 22:00 | IPNPDOC ---
Date/Time Seen The patient was seen on 10/09/16 at 21:40. Progress Note DATE OF ENCOUNTER: 10/09/2016 SUBJECTIVE: Mr. Navarro was seen this morning at bedside. He has been placed back on BiPAP as he desaturates at times. Vitals are stable. He is no longer on Lasix drip and still has good urinary output. No acute complaints. No chest pain , no increased shortness of breath. No nausea, vomiting, abdominal pain. Diarrhea has not yet resolved. OBJECTIVE: Vital Signs Date Time Temp Pulse Resp B/P Pulse Ox O2 Delivery O2 Flow Rate FiO2 10/09/16 20:18 75 22 158/70 100 NIPPV (BIPAP/CPAP) 6.0 10/09/16 16:00 96.0 I&O- Last 24 Hours up to 6 AM 10/09/16 06:00 Intake Total 2260 ml Output Total 1870 ml Balance 390 ml GENERAL: Laying in bed, he does not appear to be in any acute distress. HEENT: Normocephalic, atraumatic. Extraocular muscles are intact. Mucosa is dry. NECK: Supple. Jugular veins are elevated. He has a right IJ in place. HEART: Irregularly irregular. I could not appreciate a murmur. LUNGS: Diminished breath sounds bilaterally. No wheezing appreciated. ABDOMEN: Soft, nontender, nondistended. Positive bowel sounds. EXTREMITIES: He has generalized edema. No cyanosis. Pulses are palpable. NEUROLOGIC: No focal deficits. LABORATORY DATA: 10/09/16 04:23 ASSESSMENT AND PLAN: Mr. Navarro is an 85-year-old male with past medical history of diastolic congestive heart failure, severe pulmonary hypertension, obstructive sleep apnea, admitted to intensive care unit (ICU) with septic shock secondary to Clostridium (C.) difficile colitis, hypercapnic respiratory failure requiring bilevel positive airway pressure (BiPAP) and acute oliguric renal failure. 1. Acute renal failure superimposed on chronic kidney disease, secondary to sepsis. Patient's urinary output has improved and he is nonoliguric at this time. He still has significant volume overload and will be given a one time dose of 60mg of Lasix. Urinary output should be monitored closely. Renal function continues to improve. Vitals have remained stable. 2. Acute on chronic respiratory failure, with a mixed acidosis. The patient has significant volume overload and bilateral effusion on top of his chronic obstructive pulmonary disease with significant pleural plaquing. He has diuresed well but requires intermittent BiPAP. His acidosis has improved, as ABG yesterday revealed a pH of 7.4. We will continue with diuresis to hopefully improve his respiratory status. 3. Hypernatremia. Sodium level is currently 148. He will be given D5W at a rate of 50ml per hour. Oral intake is still poor. 4. Parenteral nutrition. TPN has been re-ordered. Hopefully, this can be discontinued within the next day or two. No sodium has been added to his TPN orders. 5. 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 Hemoglobin is currently 8.9. He is status post 2 units of packed red blood cells on 10/05. No signs of acute bleeding. On a renal standpoint, Mr. Navarro is improving. His respiratory status remains more of a concern, as he requires intermittent BiPAP. We will continue to diurese and re-assess daily. GME ATTESTATION GME ATTESTATION My preceptor for this patient encounter was physically present in the building during the encounter and was fully available. As needed, all aspects of the patient interview, examination, medical decision making process, and medical care plan development were reviewed and approved by the preceptor. Preceptor is aware and concurs with the plan as stated in the body of this note and will attest to such by his/her cosignature. MARK WOOD, Oct 09, 2016 22:00
[2016-10-10] VITALS (7 sets, daily range): BP systolic 120–154; BP diastolic 61–78; O2SAT 98
[2016-10-10] MEDS: D5W 1,000 ML IV SCH (04:48)
[2016-10-10] MEDS: SODIUM CHLORIDE 0.9% INJ 10 ML SYR IV SCH ×4 (04:48→20:55)
[2016-10-10 05:28] LABS: BASO % 0.1 % (0.0-1.0); EOS % 0.5 % (0.0-3.0); LARGE UNSTAINED CELL # 0.2 K/mm3 (0.0-0.4); LARGE UNSTAINED CELL % 1.6 % (0.0-4.0); LYMPH # 0.5 K/mm3 (1.5-4.5); LYMPH % 4.7 % (24.0-44.0); MEAN CORPUSCULAR HEMOGLOBIN 28.6 pg (27.0-33.0); MEAN CORPUSCULAR HGB CONC 29.9 g/dl (32.0-36.5); MEAN CORPUSCULAR VOLUME 95.4 fl (80.0-96.0); MONO # 0.7 K/mm3 (0.0-0.8); MONO % 6.9 % (0.0-5.0); NEUTROPHILS # 8.3 K/mm3 (1.8-7.7); NEUTROPHILS % 86.2 % (36.0-66.0); PLATELET COUNT, AUTOMATED 133 k/mm3 (150-450); RED CELL DISTRIBUTION WIDTH 17.2 % (11.5-14.5); WHITE BLOOD COUNT 9.6 K/mm3 (4.0-10.0)
[2016-10-10 05:39] LABS: ALBUMIN 1.8 GM/DL (3.2-5.2); ANION GAP 4 MEQ/L (8-16); BLOOD UREA NITROGEN 47 MG/DL (7-18); CALCIUM LEVEL 7.8 MG/DL (8.8-10.2); CARBON DIOXIDE LEVEL 39 MEQ/L (21-32); CHLORIDE LEVEL 102 MEQ/L (98-107); GLOMERULAR FILTRATION RATE > 60.0 (>35); GLUCOSE, FASTING 156 MG/DL (83-110); MAGNESIUM LEVEL 1.7 MG/DL (1.8-2.4); PHOSPHORUS LEVEL 2.2 MG/DL (2.5-4.9); POTASSIUM SERUM 3.8 MEQ/L (3.5-5.1); SODIUM LEVEL 145 MEQ/L (136-145)
[2016-10-10] MEDS ORDERED: FUROSEMIDE 100 MG/10 ML VIAL (J1940) IV ONE ×3 (07:00→20:00)
[2016-10-10] MEDS: LACTOBACILLUS ACIDOPHILUS CAP (BACID) PO SCH ×3 (08:04→17:15)
[2016-10-10] MEDS: HALOPERIDOL 0.5 MG TAB PO SCH ×2 (08:04→20:55)
[2016-10-10] MEDS: ASPIRIN 81 MG ENTERIC TAB PO SCH (08:04)
[2016-10-10] MEDS: FIDAXOMICIN 200 MG TAB (DIFICID) PO SCH ×2 (08:04→20:55)
[2016-10-10] MEDS: PANTOPRAZOLE 40MG TAB (PROTONIX) PO SCH (08:04)
[2016-10-10] MEDS: HumaLOG INSULIN (NovoLOG) PER UNIT SC SCH ×4 (08:05→20:42)
[2016-10-10] MEDS ORDERED: SODIUM CHLORIDE 0.9% INJ 10 ML SYR IV PRN (10:00)
[2016-10-10] MEDS ORDERED: MAG SULF 1GM/100ML (MAG RUN) 1 GM in APPROPRIATE DILUENT 1 EA IV ONE (12:00)
[2016-10-10] MEDS ORDERED: POTASSIUM CHLORIDE 10% LIQ 20 MEQ/15 ML UDC PO ONE (12:00)
--- NOTE | 2016-10-10 12:54 | IPNPDOC ---
Date/Time Seen The patient was seen on 10/10/16 at 12:38. Progress Note DATE OF ENCOUNTER: 10/10/2016 SUBJECTIVE: Mr. Navarro was seen this morning at bedside. He was on nasal cannula at that time. He reported that sometimes he has shortness of breath, other times he does not. His vitals were stable. He was on D5W for hypernatremia and has had a positive balance of about 1 L. He denies any chest pain, chest pressure, nausea, vomiting, abdominal pain. Diarrhea has not yet resolved. OBJECTIVE: Vital Signs Date Time Temp Pulse Resp B/P Pulse Ox O2 Delivery O2 Flow Rate FiO2 10/10/16 12:00 Nasal Cannula 5.0 10/10/16 08:00 95.7 87 22 154/74 95 I&O- Last 24 Hours up to 6 AM 10/10/16 05:59 Intake Total 2445 ml Output Total 1455 ml Balance 990 ml GENERAL: Laying in bed, he does not appear to be in any acute distress. HEENT: Normocephalic, atraumatic. Extraocular muscles are intact. Mucosa appears moist. NECK: Supple. Jugular veins are elevated. He has a right IJ in place. HEART: Irregularly irregular. I could not appreciate a murmur. LUNGS: Diminished breath sounds bilaterally. He has bilateral crackles. No wheezing appreciated. ABDOMEN: Soft, nontender, nondistended. Positive bowel sounds. No rebound, guarding or rigidity. EXTREMITIES: He has generalized edema. No cyanosis. Pulses are palpable. NEUROLOGIC: No focal deficits. Moving all extremities. LABORATORY DATA: 10/10/16 04:57 ASSESSMENT AND PLAN: Mr. Navarro is an 85-year-old male with past medical history of diastolic congestive heart failure, severe pulmonary hypertension, obstructive sleep apnea, admitted to intensive care unit (ICU) with septic shock secondary to Clostridium (C.) difficile colitis, hypercapnic respiratory failure requiring bilevel positive airway pressure (BiPAP) and acute oliguric renal failure. 1. Acute renal failure superimposed on chronic kidney disease. Patient's urinary output has improved and he remains nonoliguric. His creatinine has normalized. He still remains significantly volume overloaded and has a positive balance. A dose of Lasix was given this morning. He will be given a repeat dose this afternoon. Blood pressure has remained stable and this should continue to be monitored while he is being diuresed. Urinary output should also be monitored. 2. Acute on chronic respiratory failure. The patient has significant volume overload and bilateral effusion on top of his chronic obstructive pulmonary disease with pleural plaquing. He has episodes of shortness of breath and has required intermittent BiPAP. He was on D5W secondary to his hypernatremia, however fluids have been discontinued. We will diurese him as tolerated and hopefully his respiratory status improves as we remove more fluid. 3. Hypernatremia, resolved. Sodium level has normalized. D5W has been discontinued. Increased oral intake has been encouraged. 4. Parenteral nutrition. TPN will be discontinued, as this is providing more fluid when he is already volume overloaded. He has been encouraged to eat and nursing staff will continue to assist with this. 5. Hypomagnesemia. Mag run x 1 has been given. 6. 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 Hemoglobin is currently 8.3. No signs of acute bleeding. He is status post 2 units of packed red blood cells on 10/05. GME ATTESTATION GME ATTESTATION My preceptor for this patient encounter was physically present in the building during the encounter and was fully available. As needed, all aspects of the patient interview, examination, medical decision making process, and medical care plan development were reviewed and approved by the preceptor. Preceptor is aware and concurs with the plan as stated in the body of this note and will attest to such by his/her cosignature. MARK WOOD DO Oct 10, 2016 12:54
--- NOTE | 2016-10-10 17:23 | IPN ---
DATE: 10/10/2016 SUBJECTIVE: The patient is seen and examined in the room today. The patient is awake; however, the patient does not feel like responding to questions today. The patient seems depressed about his current situation. No overnight events are reported. The patient continues using the bilevel positive airway pressure (BIPAP) at night, table top BiPAP at night. The patient is still requiring 5 liters nasal cannula during the daytime. No overnight events reported. The patient continues to have diarrhea. OBJECTIVE: VITAL SIGNS: Temperature is 95.7, pulse 87, respirations 22, blood pressure is 154/74, pulse oximetry is 95% with 5 liters nasal cannula. GENERAL : The patient is alert and awake. No sign of acute distress. HEENT: Normocephalic, atraumatic. Extraocular motors grossly intact. CARDIOVASCULAR: Irregularly irregular. Weight is in the target range. LUNGS: Decreased breath sounds. Bilateral crackles. No wheezes. ABDOMEN: Soft, nontender, nondistended. Bowel sounds present. EXTREMITIES: Generalized edema, most significant on bilateral upper extremities. The patient has 3+ pitting edema of the upper extremities and generalized edema of the lower extremities. No sign of cyanosis. LABORATORY DATA: WBC is 9.6, hemoglobin 8.3, hematocrit is 27.8, platelet count is 133. Sodium is 145, potassium 3.8, chloride is 102, carbon dioxide 39, BUN 47, creatinine 1.1, GFR is greater than 60, fasting glucose 156, calcium is 7.8, phosphorous 2.2, magnesium is 1.7, albumin level is 1.8. ASSESSMENT AND PLAN: 1. Septic shock from Clostridium (C) difficile colitis. The patient has been on pressor. Blood pressure is maintained in satisfactory range. The patient is currently on antibiotic for her C difficile. We appreciate Dr. Berger's assistance. 2. C difficile colitis. On antibiotics. 3. Kidney failure secondary to septic shock. Nephrology is consulted. The patient continues to have significant recovery of the renal function today. Creatinine has returned to normal range, which is 1.1. GFR is greater than 60. Appreciate Dr. Box's assistance. 4. Generalized edema from fluid resuscitation that the patient received for his previous septic shock. The patient will receive IV Lasix for diuresis. 5. Hypernatremia, resolved. 6. Poor oral intake. The patient has been on TPN due to poor intake. The patient has started to knot picker cloth oral intake since yesterday. TPN will be discontinued. Encourage oral intake. 7. Obstructive sleep apnea. The patient is using table top BIPAP at night. Appreciate pulmonology assistance. 8. Anemia, status post blood transfusion. No sign of active bleeding. Hemoglobin and hematocrit are stable. 9. History of heparin induced thrombocytopenia (HIT). Avoid heparin. 10. Acute encephalopathy secondary to multiple organ failure. The patient's mentation continues to improve. 11. Deep vein thrombosis (DVT) prophylaxis. The patient is on thromboembolic compression stockings (TEDS) and sequential compression device (SCD).
[2016-10-10] MEDS: LATANOPROST 0.005% OPHTH SOLN 2.5 ML OU SCH (20:55)
[2016-10-11] VITALS: BP 122/62
[2016-10-11 04:00] VITALS: BP 140/63
[2016-10-11] MEDS: SODIUM CHLORIDE 0.9% INJ 10 ML SYR IV SCH ×4 (04:55→17:29)
[2016-10-11 05:19] LABS: BASO % 0.3 % (0.0-1.0); EOS % 0.4 % (0.0-3.0); LARGE UNSTAINED CELL # 0.2 K/mm3 (0.0-0.4); LARGE UNSTAINED CELL % 2.1 % (0.0-4.0); LYMPH # 0.4 K/mm3 (1.5-4.5); LYMPH % 3.6 % (24.0-44.0); MEAN CORPUSCULAR HEMOGLOBIN 28.6 pg (27.0-33.0); MEAN CORPUSCULAR HGB CONC 29.9 g/dl (32.0-36.5); MEAN CORPUSCULAR VOLUME 95.5 fl (80.0-96.0); MONO # 0.7 K/mm3 (0.0-0.8); MONO % 6.4 % (0.0-5.0); NEUTROPHILS # 8.8 K/mm3 (1.8-7.7); NEUTROPHILS % 87.3 % (36.0-66.0); PLATELET COUNT, AUTOMATED 116 k/mm3 (150-450); WHITE BLOOD COUNT 10.1 K/mm3 (4.0-10.0)
[2016-10-11 05:44] LABS: ALBUMIN 1.9 GM/DL (3.2-5.2); ANION GAP 3 MEQ/L (8-16); BLOOD UREA NITROGEN 46 MG/DL (7-18); CALCIUM LEVEL 7.7 MG/DL (8.8-10.2); CARBON DIOXIDE LEVEL 41 MEQ/L (21-32); CHLORIDE LEVEL 101 MEQ/L (98-107); GLOMERULAR FILTRATION RATE > 60.0 (>35); GLUCOSE, FASTING 91 MG/DL (83-110); PHOSPHORUS LEVEL 3.4 MG/DL (2.5-4.9); POTASSIUM SERUM 4.3 MEQ/L (3.5-5.1); SODIUM LEVEL 145 MEQ/L (136-145)
[2016-10-11] MEDS: HumaLOG INSULIN (NovoLOG) PER UNIT SC SCH ×4 (07:30→21:00)
[2016-10-11 08:00] VITALS: BP 152/69
[2016-10-11] MEDS: ASPIRIN 81 MG ENTERIC TAB PO SCH (08:21)
[2016-10-11] MEDS: LACTOBACILLUS ACIDOPHILUS CAP (BACID) PO SCH ×3 (08:21→17:29)
[2016-10-11] MEDS: HALOPERIDOL 0.5 MG TAB PO SCH ×2 (08:21→20:37)
[2016-10-11] MEDS: PANTOPRAZOLE 40MG TAB (PROTONIX) PO SCH (08:21)
[2016-10-11] MEDS: FIDAXOMICIN 200 MG TAB (DIFICID) PO SCH ×2 (08:21→20:36)
[2016-10-11 12:00] VITALS: BP 161/77
[2016-10-11] MEDS ORDERED: AcetaZOLAMIDE 250 MG TAB PO ONE (12:00)
[2016-10-11 16:00] VITALS: BP 137/71
[2016-10-11] MEDS: AcetaZOLAMIDE 250 MG TAB PO SCH ×2 (17:29→20:37)
--- NOTE | 2016-10-11 18:18 | IPNPDOC ---
Date Seen The patient was seen on 10/11/16. Progress Note DATE OF ENCOUNTER: 10/11/2016 SUBJECTIVE: Mr. Navarro was seen this morning at bedside. He was on nasal cannula. He reports that his breathing is stable. He denies any chest pain, chest pressure, nausea, vomiting, abdominal pain. Diarrhea has not yet resolved. His vitals are stable. He has a negative balance of 459ml in previous 24 hours. He was encouraged to be compliant with his medications and to eat his meals as he is no longer on TPN. OBJECTIVE: Vital Signs Date Time Temp Pulse Resp B/P Pulse Ox O2 Delivery O2 Flow Rate FiO2 10/11/16 16:00 Nasal Cannula 4.0 10/11/16 16:00 95.0 88 18 137/71 96 I&O- Last 24 Hours up to 6 AM 10/11/16 06:00 Intake Total 1536 ml Output Total 2950 ml Balance -1414 ml GENERAL: Laying in bed, he does not appear to be in any acute distress. HEENT: Normocephalic, atraumatic. Extraocular muscles are intact. Mucosa appears moist. NECK: Supple. Jugular veins are elevated. He has a right IJ in place. HEART: Irregularly irregular. I could not appreciate a murmur. LUNGS: Diminished breath sounds bilaterally. No wheezing appreciated. ABDOMEN: Soft, nontender, nondistended. Positive bowel sounds. No rebound, guarding or rigidity. EXTREMITIES: He has generalized edema. No cyanosis. Pulses are palpable. NEUROLOGIC: No focal deficits. Moving all extremities. LABORATORY DATA: 10/11/16 04:57 ASSESSMENT AND PLAN: Mr. Navarro is an 85-year-old male with past medical history of diastolic congestive heart failure, severe pulmonary hypertension, obstructive sleep apnea, admitted to intensive care unit (ICU) with septic shock secondary to Clostridium (C.) difficile colitis, hypercapnic respiratory failure requiring bilevel positive airway pressure (BiPAP) and acute oliguric renal failure. 1. Acute renal failure superimposed on chronic kidney disease, resolved. His renal function has normalized, however he remains significantly volume overloaded. He received Lasix yesterday however this will not be repeated given that he is more alkalotic. He will be diuresed with acetazolamide, 250 mg four times daily. Urinary output should continue to be monitored. Blood pressure has remained stable. 2. Acute on chronic respiratory failure. The patient has significant volume overload and bilateral effusion on top of his chronic obstructive pulmonary disease with pleural plaquing. He has been stable on nasal cannula. We will continue to diurese and hopefully his respiratory status improves as we remove more fluid. 3. Hypomagnesemia. Magnesium run was given. Repeat magnesium level tomorrow. 4. Parenteral nutrition. TPN has been discontinued and increased oral intake was encouraged. 5. C. difficile colitis. Patient remains on Dificid. Diarrhea has not yet resolved. 6. Anemia. Hemoglobin is currently 8.3. No signs of acute bleeding. He is status post 2 units of packed red blood cells on 10/05. Will check iron studies. GME ATTESTATION GME ATTESTATION My preceptor for this patient encounter was physically present in the building during the encounter and was fully available. As needed, all aspects of the patient interview, examination, medical decision making process, and medical care plan development were reviewed and approved by the preceptor. Preceptor is aware and concurs with the plan as stated in the body of this note and will attest to such by his/her cosignature. ATTENDING NOTE Nephrology: Pt examined today AM in ICU. Normalized renal function but persistent anasarca. Diuresis complicated by hypernatremia and alkalosis. start Acetazolamide for now. monitor I/O and adjust dose according to BMP in AM. Protein calorie malnutrition and hypoalbuminemia making it difficult to treat his anasarca. encourage PO intake. MARK WOOD DO Oct 11, 2016 18:18 BASIM TORRES MD Oct 11, 2016 22:18
--- NOTE | 2016-10-11 18:25 | IPN ---
DATE: 10/11/2016 SUBJECTIVE: Patient is an 85-year-old male admitted on 09/26/2016, with sepsis who was seen for infectious disease consult due to Clostridium (C) difficile infection. Patient was seen and examined at bedside. Patient has been on fidaxomicin 200 mg by mouth twice a day since 10/01/2016. Patient says that he is doing good today and is feeling a little bit better now than he has recently. He has been eating. He says that his abdomen feels good and denies any abdominal pain or diarrhea. Patient denies any fevers, chills, sweats, chest pains, pressure, difficulty breathing above baseline. OBJECTIVE: VITAL SIGNS: Temperature 95.8, heart rate 72, respiratory rate 20, blood pressure 161/77, pulse oximetry 95% on 3 liters nasal cannula. Intake and output: Five bowel movements yesterday ranging between liquid and soft. HEART: Regular rate and rhythm, normal S1, S2. No murmurs, rubs, clicks, or gallops. LUNGS: Clear to auscultation bilaterally. No wheezes, rales, or rhonchi. ABDOMEN: Active bowel sounds, soft, nontender, no masses to palpation. EXTREMITIES: Bilateral lower extremity pitting edema to level of knee, bilateral upper extremity pitting edema. LABORATORY DATA: CBC: White blood cells 10.1, hemoglobin and hematocrit 8.3, 27.9, platelets 116. Chemistry: Sodium 145, potassium 4.3, chloride 101, carbon dioxide 41, BUN 46, creatinine 1.00, glucose 91, calcium 7.7, phosphorous 3.4. ASSESSMENT: Patient is an 85-year-old male with Clostridium (C) difficile infection, currently on day #10 of fidaxomicin and improving. PLAN: 1. Severe Clostridium (C) difficile colitis with septic shock. Patient is currently on fidaxomicin, on day #10. He is currently doing well and improving daily. He denies having any diarrhea and denies any abdominal pain. He will continue until 10 days after his last dose of Rocephin, which was 10/09/2016, making his last dose of fidaxomicin 10/19/2016. My preceptor for this patient encounter was Dr. Scarlett Berger. The preceptor was physically present in the building during the encounter and was fully available. As needed, all aspects of the patient interview, examination, medical decision making process, and medical care plan development were reviewed and approved by the preceptor. The preceptor is aware and concurs with the plan as stated in the body of this note and will attest to such by her cosignature. JOSE
[2016-10-11 20:00] VITALS: BP 107/58
[2016-10-11] MEDS: LATANOPROST 0.005% OPHTH SOLN 2.5 ML OU SCH (20:36)
[2016-10-12] VITALS (18 sets, daily range): BP systolic 112–150; BP diastolic 57–75
[2016-10-12 03:18] LABS: ABG BASE EXCESS 11.4 (-2.0-2.0); ABG HCO3 40.1 MEQ/L (22.0-26.0); ABG STANDARD HCO3 35.1 MEQ/L (22.0-26.0); ABG TOTAL CO2 42.8 MEQ/L (23.0-31.0); ABG pH (ARTERIAL) 7.288 UNITS (7.350-7.450)
[2016-10-12 03:22] LABS: ABG PARTIAL PRESSURE CO2 85.8 mmHg (35.0-45.0)
[2016-10-12 05:14] LABS: DIFF SLIDE NUMBER 31; MEAN CORPUSCULAR HEMOGLOBIN 29.3 pg (27.0-33.0); MEAN CORPUSCULAR HGB CONC 29.1 g/dl (32.0-36.5); PLATELET COUNT, AUTOMATED 100 k/mm3 (150-450); RED CELL DISTRIBUTION WIDTH 16.8 % (11.5-14.5); WHITE BLOOD COUNT 7.8 K/mm3 (4.0-10.0)
[2016-10-12] MEDS: SODIUM CHLORIDE 0.9% INJ 10 ML SYR IV SCH ×2 (05:16→18:03)
[2016-10-12 05:22] LABS: ALBUMIN 1.9 GM/DL (3.2-5.2); ANION GAP 1 MEQ/L (8-16); BLOOD UREA NITROGEN 44 MG/DL (7-18); CALCIUM LEVEL 7.9 MG/DL (8.8-10.2); CARBON DIOXIDE LEVEL 43 MEQ/L (21-32); CHLORIDE LEVEL 104 MEQ/L (98-107); FERRITIN 1033 NG/ML (26-388); GLOMERULAR FILTRATION RATE > 60.0 (>35); GLUCOSE, FASTING 111 MG/DL (83-110); MAGNESIUM LEVEL 1.9 MG/DL (1.8-2.4); MEAN CORPUSCULAR VOLUME 100.7 fl (80.0-96.0); PERCENT SATURATION 12.8 % (19.7-37.4); POTASSIUM SERUM 4.3 MEQ/L (3.5-5.1); SODIUM LEVEL 148 MEQ/L (136-145); TOTAL IRON BINDING CAPACITY 133 UG/DL (250-450)
[2016-10-12 06:00] LABS: ABG BASE EXCESS 13.6 (-2.0-2.0); ABG HCO3 40.5 MEQ/L (22.0-26.0); ABG STANDARD HCO3 37.3 MEQ/L (22.0-26.0); ABG TOTAL CO2 42.7 MEQ/L (23.0-31.0); ABG pH (ARTERIAL) 7.387 UNITS (7.350-7.450)
[2016-10-12 06:08] LABS: ANISOCYTOSIS 1+; HYPOCHROMASIA 2+
[2016-10-12] MEDS: HumaLOG INSULIN (NovoLOG) PER UNIT SC SCH ×4 (07:30→21:00)
[2016-10-12] MEDS: ASPIRIN 81 MG ENTERIC TAB PO SCH (09:12)
[2016-10-12] MEDS: HALOPERIDOL 0.5 MG TAB PO SCH (09:12)
[2016-10-12] MEDS: FIDAXOMICIN 200 MG TAB (DIFICID) PO SCH ×2 (09:12→22:02)
[2016-10-12] MEDS: LACTOBACILLUS ACIDOPHILUS CAP (BACID) PO SCH ×3 (09:12→17:02)
[2016-10-12] MEDS: PANTOPRAZOLE 40MG TAB (PROTONIX) PO SCH (09:12)
[2016-10-12] MEDS ORDERED: FUROSEMIDE 40 MG/4 ML VIAL (J1940) IV SCH (10:00)
[2016-10-12] MEDS: AcetaZOLAMIDE 250 MG TAB PO SCH ×4 (10:26→22:02)
--- NOTE | 2016-10-12 11:13 | REP ---
AP PORTABLE CHEST: 10/12/2016 at 09:47 AM. Clinical history: Dyspnea. Comparison: 10/08/2016, 10/05/2016, 10/02/2016, CT chest 08/03/2016. Findings: The right jugular catheter has been removed. There is now a right upper extremity PICC line terminating in the SVC. There are extensive bulky bilateral heavily calcified pleural plaques as on previous studies. Better inflation than on previous examination. There is less basilar atelectatic change on that right side. Small effusion on the left versus chronic pleural thickening. This has not much changed. I cannot confirm any new or superimposed dense consolidation. Basilar fibrotic changes and retrocardiac density again seen and unchanged. Cardiomediastinal silhouette intact. There is pulmonary artery hypertension. Bones show degenerative changes in the spine. Impression: 1. Better level of inflation but with again noted to be extensive bilateral heavily calcified pleural plaques and chronic basilar fibrotic and atelectatic changes with pleural thickening. 2. New right upper extremity PICC line and removal of the right jugular central catheter since the previous study. Signed by Juan Gaitan MD 10/12/2016 04:42 P
--- NOTE | 2016-10-12 13:29 | IPNPDOC ---
Date Seen The patient was seen on 10/12/16. Progress Note DATE OF ENCOUNTER: 10/12/2016 SUBJECTIVE: Mr. Navarro was seen this morning at bedside. He had an episode of lethargy overnight and had to be reinitiated on BiPAP after ABG showed elevated CO2 levels. He is alert this morning. Apart from his respiratory status, no acute complaints. No chest pain, chest pressure. No nausea, vomiting, or abdominal pain. He had 3 bowel movements yesterday. His vitals are stable. He had a urinary output of 1310 mL with positive balance of 250ml in previous 24 hours. OBJECTIVE: Vital Signs Date Time Temp Pulse Resp B/P Pulse Ox O2 Delivery O2 Flow Rate FiO2 10/12/16 11:00 76 18 138/71 97 NIPPV (BIPAP/CPAP) 30 10/12/16 10:12 95.0 10/12/16 04:00 I&O- Last 24 Hours up to 6 AM 10/12/16 06:00 Intake Total 1560 ml Output Total 1130 ml Balance 430 ml GENERAL: Laying in bed, he does not appear to be in any acute distress. HEENT: Normocephalic, atraumatic. Extraocular muscles are intact. NECK: Supple. Jugular veins are elevated. HEART: Irregularly irregular. I could not appreciate a murmur. LUNGS: Diminished breath sounds bilaterally. No wheezing appreciated. ABDOMEN: Soft, nontender, nondistended. Positive bowel sounds. No rebound, guarding or rigidity. EXTREMITIES: He has generalized edema. No cyanosis. Pulses are palpable. NEUROLOGIC: No focal deficits. Moving all extremities. LABORATORY DATA: 10/12/16 04:34 ASSESSMENT AND PLAN: Mr. Navarro is an 85-year-old male with past medical history of diastolic congestive heart failure, severe pulmonary hypertension, obstructive sleep apnea, admitted to intensive care unit (ICU) with septic shock secondary to Clostridium (C.) difficile colitis, hypercapnic respiratory failure requiring bilevel positive airway pressure (BiPAP) and acute oliguric renal failure. 1. Acute renal failure superimposed on chronic kidney disease, resolved. His renal function remains within normal. 2. Volume overload. Given that he is volume overloaded and alkalotic, he was initiated on acetazolamide yesterday. Continue with 250 mg 4 times daily. He was in positive balance based on total intake and output. We will give Acetazolamide an additional 24 hours to see how his urinary output responds. Most of his fluids are third spacing and not a significant amount is remaining in the vessels to be adequately diuresed. Depending on his volume status tomorrow, he may need to be initiated on albumin and Lasix for better outcome. 3. Anemia. Hemoglobin has dropped to 7.8. He will receive a unit of packed red blood cells in addition to a dose of Lasix. Hemoglobin will continue to be monitored. Given his active infection, IV iron will not be administered. 4. Hypernatremia. Patient has a sodium level of 148. Oral intake has been encouraged. We will monitor this for now. 5. Metabolic alkalosis. Acetazolamide is being given to help with this. 6. Acute on chronic hypercapnic and hypoxic respiratory failure. Patient required BiPAP again last evening. He has some volume overload on top of his chronic obstructive pulmonary disease with pleural plaquing. We will continue to diurese and hopefully his respiratory status improves. 7. Parenteral nutrition. Oral intake has slightly improved. Will add protein shakes in addition to his meals. Hopefully, the increased protein can help with diuresis. 8. C. difficile colitis. Patient remains on Dificid. Diarrhea has not yet resolved. GME ATTESTATION GME ATTESTATION My preceptor for this patient encounter was physically present in the building during the encounter and was fully available. As needed, all aspects of the patient interview, examination, medical decision making process, and medical care plan development were reviewed and approved by the preceptor. Preceptor is aware and concurs with the plan as stated in the body of this note and will attest to such by his/her cosignature. ATTENDING NOTE Nephrology: Pt was examined in the morning. Lasix one dose to be given with PRBC transfusion today. Cont Acetazolamide. start Protein shakes for protein calorie malnutrition. MARK WOOD DO Oct 12, 2016 13:29 BASIM TORRES MD Oct 14, 2016 22:05
--- NOTE | 2016-10-12 16:00 | IPN ---
DATE: 10/11/2016 SUBJECTIVE: The patient is seen and examined in the room today. The patient is awake, alert, and oriented. Patient is able to answer questions and follow commands. Patient is able to tolerate more oral intake. No overnight events were reported. The patient still requires high oxygen support. OBJECTIVE: VITAL SIGNS: Temperature is 97, pulse 102, respirations 18, blood pressure is 152/69, pulse oximetry is 93% with 4 liters nasal cannula. GENERAL: The patient is agitated about his current situation, and he feels he has been critically ill for too long. No sign of acute distress. Alert and oriented times three. HEENT: Normocephalic, atraumatic. Extraocular motor grossly intact. Dry oral mucosa. CARDIOVASCULAR: Irregularly irregular. Heart rate within target range. LUNGS: Decreased breath sounds bilaterally. No wheezes appreciated. Mild crackles bilaterally. ABDOMEN: Soft, nontender, nondistended. Bowel sounds present. EXTREMITIES: Generalized edema throughout. The patient has greater than 3+ pitting edema, most noticeable in the bilateral upper extremity. No sign of cyanosis. LABORATORY DATA: WBC is 10.1, hemoglobin 8.3, hematocrit is 27.9, platelet count is 116. Sodium is 145, potassium 4.3, chloride is 101, carbon dioxide 41, BUN 46, creatinine 1, GFR is greater than 60, fasting glucose 91, calcium is 7.7, phosphorus 3.4. ASSESSMENT AND PLAN: 1. Septic shock from Clostridium (C) difficile colitis. The patient has been off the pressor. Patient's blood pressure has been maintained in satisfactory range. Currently the patient is still requiring oxygen support. Patient's mentation has been improving. Patient has been taking Dificid. We appreciate Dr. Berger's assistance. 2. Clostridium difficile colitis. On Dificid and Bacid. 3. Kidney failure secondary to septic shock. Nephrology is consulted. Currently the patient has a good urinary output. Patient's renal function has returned to normal range since 10/09/2016. We appreciate nephrology's assistance. 4. Poor oral intake. Patient was on total parenteral nutrition (TPN) previously. It was discontinued on 10/10/2016. In the past 1-2 days, patient has made an improvement of the amount of oral intake. 5. Generalized edema from aggressive fluid resuscitation for patient's septic shock. Patient has significant generalized swelling, most significant of bilateral upper extremities. Patient is receiving intermittent Lasix for diuresis. 6. Hypernatremia, resolved. 7. ELBA. The patient is using table top bilevel positive airway pressure (BIPAP) at night. 8. Anemia, status post blood transfusion. No sign of active bleeding. Hemoglobin and hematocrit are stable. 9. 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 Patient's allergy list is updated. Patient's medications were reviewed. Patient is not on any heparin at this moment. 10. Deep vein thrombosis (DVT) prophylaxis. The patient is on thromboembolic compression stockings (TEDS) and sequential compression device (SCD). [facility]
--- NOTE | 2016-10-12 16:32 | IPN ---
DATE: 10/12/2016 SUBJECTIVE: The patient was seen and examined in the room today. Yesterday the patient had acute desaturation and the nighttime hospitalist was contacted and patient's ABG was performed and showed the patient has respiratory acidosis from CO2 retention. Bilevel positive airway pressure (BiPAP) was re-initiated. OBJECTIVE: VITAL SIGNS: Temperature is 95.1, pulse is 83, respirations 16, blood pressure is 126/61, pulse oximetry is 96% on 30% FiO2, NIPPV, BiPAP. GENERAL: No sign of acute distress. Alert and oriented times three. HEENT: The patient is wearing a BiPAP mask. Normocephalic, atraumatic. CARDIOVASCULAR: Irregularly irregular. Heart rate in satisfactory range. LUNGS: Decreased breath sounds. Positive crackles. No wheezes. ABDOMEN: Obese, soft, nontender, nondistended. Bowel sounds present. EXTREMITIES: Generalized 2 to 3+ edema in upper and lower extremities. No sign of cyanosis. LABORATORY DATA: WBC is 7.8, hemoglobin 7.8, hematocrit is 26.8, platelet count is 100. Sodium is 148, potassium 4.3, chloride is 104, carbon dioxide 43, BUN 44, creatinine 1.1, GFR greater than 60, fasting glucose 111, calcium 7.9, phosphorus 4, magnesium 1.9, iron 17, TIBC is 133, transferrin is 12.8, ferritin is 1033, albumin is 1.9, vitamin B12 is 947, folate is 9. ASSESSMENT AND PLAN: 1. Septic shock from Clostridium difficile. The patient's blood pressure is being maintained. The patient is receiving the Clostridium difficile treatment through oral antibiotics. The patient's sepsis is resolving. We appreciate Dr. Berger's assistance. 2. Clostridium difficile colitis. The patient has started to have formed stool now. Per infectious disease recommendation, the patient should continue oral antibiotics for 10 days after the resolution of diarrhea. 3. Acute blood loss anemia secondary to Clostridium difficile infection. The patient continues to have a drop of hemoglobin and hematocrit. One unit of packed red blood cells will be ordered. 4. Kidney injury secondary to septic shock. Currently the patient's renal function is within normal range. We appreciate nephrology's assistance. 5. Obstructive sleep apnea. The patient was discontinued on bilevel positive airway pressure (BiPAP) machine for the past 1-2 nights and BiPAP had to be restarted yesterday at night. The patient does have a machine he uses at home. We contacted a family member and asked them to bring the machine to the hospital and the respiratory therapy team will review the settings and the patient will restart on his home machine tonight if it is available. 6. General edema from fluid resuscitation for his previous septic shock. The patient has been receiving intermittent IV Lasix for diuresis. 7. Poor oral intake. Improving. The patient is tolerating more oral diet. Total parenteral nutrition (TPN) has been discontinued. 8. History of heparin-induced thrombocytopenia. Avoid heparin. 9. Acute encephalopathy secondary to multiple organ failure. Patient's mentation continues to improve. 10. Deep vein thrombosis (DVT) prophylaxis. The patient is on thromboembolism deterrents (TEDs), sequential compression device. [facility]
[2016-10-12] MEDS: LATANOPROST 0.005% OPHTH SOLN 2.5 ML OU SCH (22:02)
[2016-10-13] VITALS (8 sets, daily range): BP systolic 108–169; BP diastolic 53–82
[2016-10-13] MEDS: SODIUM CHLORIDE 0.9% INJ 10 ML SYR IV SCH ×2 (04:54→17:14)
[2016-10-13 05:16] LABS: BASO % 0.1 % (0.0-1.0); EOS # 0.1 K/mm3 (0.0-0.50); EOS % 0.7 % (0.0-3.0); LARGE UNSTAINED CELL # 0.2 K/mm3 (0.0-0.4); LARGE UNSTAINED CELL % 1.8 % (0.0-4.0); LYMPH # 0.4 K/mm3 (1.5-4.5); MEAN CORPUSCULAR HEMOGLOBIN 28.9 pg (27.0-33.0); MEAN CORPUSCULAR HGB CONC 29.1 g/dl (32.0-36.5); MEAN CORPUSCULAR VOLUME 99.2 fl (80.0-96.0); MONO # 0.6 K/mm3 (0.0-0.8); MONO % 6.3 % (0.0-5.0); NEUTROPHILS # 7.4 K/mm3 (1.8-7.7); NEUTROPHILS % 86.1 % (36.0-66.0); PLATELET COUNT, AUTOMATED 101 k/mm3 (150-450); RED CELL DISTRIBUTION WIDTH 16.7 % (11.5-14.5); WHITE BLOOD COUNT 8.6 K/mm3 (4.0-10.0)
[2016-10-13 05:31] LABS: ALBUMIN 1.9 GM/DL (3.2-5.2); ANION GAP 7 MEQ/L (8-16); BLOOD UREA NITROGEN 40 MG/DL (7-18); CALCIUM LEVEL 7.9 MG/DL (8.8-10.2); CARBON DIOXIDE LEVEL 37 MEQ/L (21-32); CHLORIDE LEVEL 107 MEQ/L (98-107); GLOMERULAR FILTRATION RATE > 60.0 (>35); GLUCOSE, FASTING 104 MG/DL (83-110); PHOSPHORUS LEVEL 2.8 MG/DL (2.5-4.9); POTASSIUM SERUM 3.8 MEQ/L (3.5-5.1); SODIUM LEVEL 151 MEQ/L (136-145)
[2016-10-13] MEDS: HumaLOG INSULIN (NovoLOG) PER UNIT SC SCH ×4 (08:19→21:00)
[2016-10-13] MEDS: AcetaZOLAMIDE 250 MG TAB PO SCH ×4 (08:19→22:07)
[2016-10-13] MEDS: ASPIRIN 81 MG ENTERIC TAB PO SCH (08:19)
[2016-10-13] MEDS: LACTOBACILLUS ACIDOPHILUS CAP (BACID) PO SCH ×3 (08:19→17:13)
[2016-10-13] MEDS: PANTOPRAZOLE 40MG TAB (PROTONIX) PO SCH (08:19)
[2016-10-13] MEDS: FIDAXOMICIN 200 MG TAB (DIFICID) PO SCH ×2 (08:19→22:07)
[2016-10-13] MEDS ORDERED: D5W 1,000 ML IV SCH (10:30)
--- NOTE | 2016-10-13 11:30 | IPNPDOC ---
Date Seen The patient was seen on 10/13/16. Progress Note DATE OF ENCOUNTER: 10/13/2016 SUBJECTIVE: Mr. Navarro was seen this morning at bedside. He is currently on 3 L of nasal cannula. He reports that everything is going fine. He reports that his breathing is okay. No chest pain, chest pressure. No nausea, vomiting, or abdominal pain. He had 3 bowel movements yesterday. His vitals are stable. Urinary output was 1590 mL with negative balance of 645ml in previous 24 hours. OBJECTIVE: Vital Signs Date Time Temp Pulse Resp B/P Pulse Ox O2 Delivery O2 Flow Rate FiO2 10/13/16 10:08 97 18 121/58 98 Nasal Cannula 2.0 10/13/16 07:38 95.1 10/13/16 06:00 30 I&O- Last 24 Hours up to 6 AM 10/13/16 06:00 Intake Total 945 ml Output Total 1685 ml Balance -740 ml GENERAL: Sitting up in chair, in any acute distress. HEENT: Normocephalic, atraumatic. Extraocular muscles are intact. Moist mucosa. NECK: Supple. Jugular veins are elevated. HEART: Irregularly irregular. I could not appreciate a murmur. LUNGS: Diminished breath sounds bilaterally. No wheezing appreciated. ABDOMEN: Soft, nontender, nondistended. Positive bowel sounds. No rebound, guarding or rigidity. EXTREMITIES: Lower extremity edema has improved. He does continue to have some thigh edema as well as upper extremity edema. Pulses are palpable. NEUROLOGIC: No focal deficits. Moving all extremities. LABORATORY DATA: 10/13/16 04:54 ASSESSMENT AND PLAN: Mr. Navarro is an 85-year-old male with past medical history of diastolic congestive heart failure, severe pulmonary hypertension, obstructive sleep apnea, admitted to intensive care unit (ICU) with septic shock secondary to Clostridium (C.) difficile colitis, hypercapnic respiratory failure requiring bilevel positive airway pressure (BiPAP) and acute oliguric renal failure. 1. Acute renal failure superimposed on chronic kidney disease, resolved. His renal function remains within normal. 2. Volume overload. Patient is being continued on Acetazolamide to help with diuresis. Unfortunately, his sodium has increased and he will need to be given fluids. 3. Hypernatremia. Sodium is currently 151. We will give him 500 mL of D5W to help improve his sodium levels. He is encouraged to increase his oral intake. 4. Anemia. Hemoglobin is currently 8.5, status post 1 unit of packed red blood cells yesterday. 5. Respiratory acidosis with compensating metabolic alkalosis. He is currently on Acetazolamide. 6. Acute on chronic hypercapnic and hypoxic respiratory failure. He is currently on nasal cannula. He has some volume overload on top of his chronic obstructive pulmonary disease with pleural plaquing. Hopefully with further diuresis, his respiratory status may improve. 7. Parenteral nutrition. Protein shakes have been added to his meals. Increased oral intake has been encouraged as his sodium levels have increased further. 8. C. difficile colitis. Patient remains on Dificid. GME ATTESTATION GME ATTESTATION My preceptor for this patient encounter was physically present in the building during the encounter and was fully available. As needed, all aspects of the patient interview, examination, medical decision making process, and medical care plan development were reviewed and approved by the preceptor. Preceptor is aware and concurs with the plan as stated in the body of this note and will attest to such by his/her cosignature. MARK WOOD DO Oct 13, 2016 11:30
--- NOTE | 2016-10-13 19:20 | IPN ---
DATE: 10/13/2016 SUBJECTIVE: The patient is seen and examined in the room today. The patient stated he has intermittent shortness of breath requiring additional oxygen support. The patient was found to have gelatinous stool with bright red blood in the past 24 hours. I had a chance to talk to the patient's significant others in the room with the patient. The patient has been using compressor to provide two liters oxygen through the nasal cannula, and the patient had been using that machine every day for a long time, and that machine was provided by the [facility]. The patient has never used bilevel positive airway pressure (BiPAP) or continuous positive airway pressure (CPAP). No overnight events were reported. OBJECTIVE: VITAL SIGNS: Temperature is 95.1, pulse 84, respirations 20, blood pressure is 169/82. Pulse oximetry is 93% with three liters nasal cannula. GENERAL: Fatigued, depressed. No sign of acute distress. Alert and oriented times three. HEENT: Normocephalic, atraumatic. Extraocular motor grossly intact. CARDIOVASCULAR: Irregularly irregular. Heart rate less than 100. LUNGS: Decreased breath sounds. Positive crackles. No wheezes. ABDOMEN: Soft, nontender, nondistended. Bowel sounds present. EXTREMITIES: Generalized 2+ pitting edema throughout. No sign of cyanosis. LABORATORY DATA: WBC is 8.6, hemoglobin 8.5, hematocrit 29.3, platelet count is 101. Sodium is 151, potassium 3.8, chloride 107, carbon dioxide 37, BUN 40, creatinine 1.1, GFR greater than 60, fasting glucose 104, calcium 7.9, phosphorus 2.8, albumin level 1.9. ASSESSMENT AND PLAN: 1. Septic shock secondary to Clostridium (C.) difficile colitis. The patient's shock has been resolved. The patient has been receiving Dificid for his C. Difficile. The patient just had episode of bright red blood per rectum. We will continue to watch hemoglobin and hematocrit. The patient is still requiring intermittent oxygen support. 2. Acute renal failure secondary to septic shock. Nephrology has been assisting throughout the whole case, and current the patient's renal function has returned to normal. 3. Fluid overload secondary to fluid resuscitation required for septic shock. The patient has been receiving intravenous (IV) diuresis. We appreciated nephrology's assistance. 4. Acute blood loss anemia secondary to Clostridium difficile infection. Continue to monitor hemoglobin and hematocrit. The patient has been receiving intermittent packed red blood cell transfusion. 5. Poor oral intake, improving. The patient is currently tolerating more oral intake. Total parenteral nutrition (TPN) has been discontinued. 6. History of heparin-induced thrombocytopenia. Avoid warfarin. 7. Acute encephalopathy secondary to multi-organ failure, resolved. 8. Deep venous thrombosis (DVT) prophylaxis, on thromboembolism deterrent stockings (TEDs), sequential compression devices.
[2016-10-13] MEDS: LATANOPROST 0.005% OPHTH SOLN 2.5 ML OU SCH (22:05)
[2016-10-14] VITALS (13 sets, daily range): BP systolic 96–179; BP diastolic 55–126
[2016-10-14] MEDS: SODIUM CHLORIDE 0.9% INJ 10 ML SYR IV SCH ×2 (05:04→17:31)
[2016-10-14 06:00] LABS: DIFF SLIDE NUMBER 19; MEAN CORPUSCULAR HEMOGLOBIN 29.1 pg (27.0-33.0); MEAN CORPUSCULAR VOLUME 100.2 fl (80.0-96.0); RED CELL DISTRIBUTION WIDTH 16.5 % (11.5-14.5); WHITE BLOOD COUNT 5.6 K/mm3 (4.0-10.0)
[2016-10-14 06:02] LABS: PLATELET COUNT, AUTOMATED 87 k/mm3 (150-450)
[2016-10-14 06:05] LABS: ANION GAP 7 MEQ/L (8-16); BLOOD UREA NITROGEN 39 MG/DL (7-18); CALCIUM LEVEL 8.1 MG/DL (8.8-10.2); CARBON DIOXIDE LEVEL 36 MEQ/L (21-32); CHLORIDE LEVEL 108 MEQ/L (98-107); CREATININE FOR GFR 1.17 MG/DL (0.70-1.30); GLOMERULAR FILTRATION RATE > 60.0 (>35); GLUCOSE, FASTING 95 MG/DL (83-110); PHOSPHORUS LEVEL 4.2 MG/DL (2.5-4.9); SODIUM LEVEL 151 MEQ/L (136-145)
[2016-10-14 06:25] LABS: BANDS 1 % (< 11)
[2016-10-14 06:26] LABS: ANISOCYTOSIS 1+; HYPOCHROMASIA 3+
[2016-10-14] MEDS: HumaLOG INSULIN (NovoLOG) PER UNIT SC SCH ×4 (07:30→20:21)
[2016-10-14] MEDS: LACTOBACILLUS ACIDOPHILUS CAP (BACID) PO SCH ×3 (08:51→17:30)
[2016-10-14] MEDS: FIDAXOMICIN 200 MG TAB (DIFICID) PO SCH ×2 (08:51→20:21)
[2016-10-14] MEDS: ASPIRIN 81 MG ENTERIC TAB PO SCH (08:51)
[2016-10-14] MEDS: AcetaZOLAMIDE 250 MG TAB PO SCH ×4 (08:51→20:21)
[2016-10-14] MEDS: PANTOPRAZOLE 40MG TAB (PROTONIX) PO SCH (08:51)
[2016-10-14] MEDS: D5W 1,000 ML IV SCH (08:52)
[2016-10-14] MEDS ORDERED: FUROSEMIDE 100 MG/10 ML VIAL (J1940) IV ONE (11:00)
--- NOTE | 2016-10-14 12:03 | IPN ---
DATE: 10/14/2016 Mr. Navarro is seen this morning on his bedside. He remains in intensive care unit and requires CPAP through the night. This morning he is back on nasal cannula with 2 liters of oxygen. He denies any complaints at present, however remains short of breath. He is mostly bed bound. He continues to have some mucous and blood in the stool and currently has a rectal tube in place. He is being treated for C. difficile colitis. On physical exam, temperature 95.0 degrees Fahrenheit, heart rate 86 per minute and respiratory rate 16 per minute. Blood pressure 136/65 mmHg and oxygen saturation 96% on 2 liters oxygen. Head is atraumatic. Neck veins are mildly distended. He has a central line in the right internal jugular vein. Ears, nose and throat are unremarkable. Pupils are equal and reactive to light and sclera is anicteric. Heart sounds are irregular in rhythm. Lungs have bilateral rales with diminished breath sounds at the bases. Abdomen is soft and bowel sounds are normal. There is no palpable organomegaly. Extremities have no cyanosis or clubbing. There is generalized edema on all four limbs. Neurologically, he is awake and responds to questions, mostly appropriately. Intake and output records from yesterday show a total intake of 1420 mL and output 1005 mL. Today's labs show WBC count 5.6, hemoglobin 8.2 and hematocrit 28.3. Platelets 87,000. Sodium 151 and potassium 4.0. CO2 36, BUN 39 and creatinine 1.17. Glucose 95, calcium 8.1 and phosphorus 4.2. PROBLEMS: 1. Acute renal failure superimposed on chronic kidney disease. His underlying chronic kidney disease is probably only mild. Acute renal failure has improved significantly. At present, he is almost at his baseline kidney function. 2. Recurrent hypernatremia. This is related to volume overload and decreased oral intake of fluids. We have started him back on IV D5W and will give him a dose of Lasix 60 mg today in order to maintain his volume status, but also try to get rid of some sodium. Electrolytes will be repeated later this evening and again tomorrow morning. 3. Respiratory acidosis with metabolic alkalosis. The patient did have respiratory acidosis related to his chronic lung disease and volume overload. He will need to be diuresed while we are trying to correct his metabolic situation. We will give him Lasix dose 60 mg today. His metabolic alkalosis is caused by respiratory acidosis. Once we correct his volume status, then his respiratory acidosis is likely to improve. 4. Recurrent anemia. The patient has ongoing colitis with some blood loss. His anemia is gradually worsening and he is likely to require further transfusion. At this point there is no emergent indication for transfusion. 5. Respiratory insufficiency. The patient remains decompensated with generalized volume overload and significant edema. We will diurese him with Lasix today while monitoring his electrolytes closely. 6. Deconditioning. The patient remains quite deconditioned and he will need subacute rehabilitation, at least for a while.
--- NOTE | 2016-10-14 17:46 | IPN ---
DATE OF VISIT: 10/14/2016 SUBJECTIVE: The patient is seen and examined in the room today. The patient is alert, awake and able to answer questions. The patient denies any acute pain or acute complaint. The patient still cannot finish the whole meal. Yesterday, the patient had another bowel with mucus mixed with bright red blood per rectum. Otherwise, no overnight events reported. OBJECTIVE: VITAL SIGNS: Temperature is 95.2, pulse is 76, respiratory rate is 20, blood pressure is 175/126, pulse oximetry is 92% with 2 liters nasal cannula. GENERAL: No signs of acute distress, fatigue, alert and oriented times three. HEENT: Normocephalic, atraumatic. Extraocular muscles grossly intact. CARDIOVASCULAR: Irregularly irregular. Heart rate in the target range. LUNGS: Decreased breath sounds. Positive bibasilar crackles. No wheezes. ABDOMEN: Soft, nontender, nondistended. Bowel sounds are present. EXTREMITIES: Positive edema bilaterally in upper and lower extremities. No sign of cyanosis. LABORATORY DATA: White blood count (WBC) is 5.6, hemoglobin 8.2, hematocrit 28.3, platelet count is 87. Sodium is 151, potassium is 4, chloride is 108, carbon dioxide 36, BUN is 39, creatine is 1.17, glomerular filtration rate (GFR) greater than 60, fasting glucose 95, calcium is 8.1, phosphorus 4.2, albumin is 2. ASSESSMENT AND PLAN: 1. Septic shock secondary to Clostridium difficile infection. The patient's shock has been resolved. Blood pressure and heart rate has been in satisfactory range without any pressure support. The patient is being treated with oral antibiotics. Would appreciate infectious disease recommendations. The patient will continue with physical therapy. 2. Bright red blood per rectum. The patient continues to have gastrointestinal (GI) bleed. The patient is currently being treated for Clostridium difficile colitis. The patient has a low platelet count, which the patient's platelets have been dropping from 160 to 87. 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 Any type of heparin has been discontinued for several days. Will monitor the platelets daily. The patient continued to have a slow bleed and required intermittent blood transfusion. Most recent blood transfusion occurred on 10/12/2016. Will continue to monitor and continue with blood transfusion as needed. The patient had a colonoscopy in [place] [address] Neisha and the report shows the patient has diverticulosis and hemorrhage. 3. Acute renal failure secondary to septic shock. Nephrology has been assisting through the case. The patient has good urinary output now and renal function has remained in the normal range now. 4. Fluid overload secondary to fluid resuscitation required for septic shock. The patient has been receiving IV diuresis. The patient's sign of fluid overload has been improving. The swelling of upper and lower extremities continued to decreased. The patient's breathing continues to improve. 5. Obstructive sleep apnea. The patient has been followed with the [place] [facility]. He only has a concentrator at home. He usually use 2 to 3 liter nasal cannula at home. However, during this hospitalization, we noticed the nasal cannula may not be enough for the patient. On 10/12/2016, the patient was sleeping with 5 liters nasal cannula and the patient started having gradual decreased augmentation. Arterial blood gas (ABG) showed the patient had worsening CO2 retention and BiPAP has been restarted at night. Currently, the patient is transitioned to table top BiPAP. The patient may need a repeat sleep study and the patient may benefit from home CPAP or BiPAP. 6. Poor oral intake, gradually improving. However, the patient's oral intake still not optimal. The patient was on total parenteral nutrition (TPN) previously. 7. Acute encephalopathy secondary to multiple organ failure. The patient is improving. 8. Deep vein thrombosis (DVT) prophylaxis due to continuous current gastrointestinal (GI) bleed and the patient is on TEDs, sequential and compression device. 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 Heparin product will be avoided.
[2016-10-14 18:17] LABS: ANION GAP 5 MEQ/L (8-16); BLOOD UREA NITROGEN 37 MG/DL (7-18); CALCIUM LEVEL 8.2 MG/DL (8.8-10.2); CARBON DIOXIDE LEVEL 38 MEQ/L (21-32); CHLORIDE LEVEL 108 MEQ/L (98-107); CREATININE FOR GFR 1.22 MG/DL (0.70-1.30); GLOMERULAR FILTRATION RATE > 60.0 (>35); GLUCOSE, FASTING 143 MG/DL (83-110); POTASSIUM SERUM 3.9 MEQ/L (3.5-5.1); SODIUM LEVEL 151 MEQ/L (136-145)
[2016-10-14] MEDS: LATANOPROST 0.005% OPHTH SOLN 2.5 ML OU SCH (20:21)
[2016-10-15] VITALS (11 sets, daily range): BP systolic 110–161; BP diastolic 53–72
[2016-10-15] MEDS: D5W 1,000 ML IV SCH ×2 (03:30→21:19)
[2016-10-15 05:11] LABS: ADD MORPHOLOGY? YES; BASO % 0.1 % (0.0-1.0); EOS # 0.1 K/mm3 (0.0-0.50); EOS % 1.1 % (0.0-3.0); LARGE UNSTAINED CELL # 0.2 K/mm3 (0.0-0.4); LARGE UNSTAINED CELL % 2.7 % (0.0-4.0); LYMPH # 0.5 K/mm3 (1.5-4.5); LYMPH % 8.4 % (24.0-44.0); MEAN CORPUSCULAR HEMOGLOBIN 28.5 pg (27.0-33.0); MEAN CORPUSCULAR HGB CONC 28.6 g/dl (32.0-36.5); MEAN CORPUSCULAR VOLUME 99.7 fl (80.0-96.0); MONO # 0.4 K/mm3 (0.0-0.8); MONO % 7.4 % (0.0-5.0); NEUTROPHILS # 4.8 K/mm3 (1.8-7.7); NEUTROPHILS % 80.2 % (36.0-66.0); RED CELL DISTRIBUTION WIDTH 16.6 % (11.5-14.5)
[2016-10-15 05:27] LABS: ALBUMIN 1.9 GM/DL (3.2-5.2); ANION GAP 6 MEQ/L (8-16); BLOOD UREA NITROGEN 35 MG/DL (7-18); CALCIUM LEVEL 7.7 MG/DL (8.8-10.2); CARBON DIOXIDE LEVEL 38 MEQ/L (21-32); CHLORIDE LEVEL 107 MEQ/L (98-107); CREATININE FOR GFR 1.32 MG/DL (0.70-1.30); GLOMERULAR FILTRATION RATE > 60.0 (>35); GLUCOSE, FASTING 94 MG/DL (83-110); PHOSPHORUS LEVEL 3.8 MG/DL (2.5-4.9); PLATELET COUNT, AUTOMATED 80 k/mm3 (150-450); POTASSIUM SERUM 3.9 MEQ/L (3.5-5.1); SODIUM LEVEL 151 MEQ/L (136-145)
[2016-10-15 05:29] LABS: ANISOCYTOSIS 1+; HYPOCHROMASIA 3+
[2016-10-15] MEDS: SODIUM CHLORIDE 0.9% INJ 10 ML SYR IV SCH ×2 (05:48→17:03)
[2016-10-15] MEDS: HumaLOG INSULIN (NovoLOG) PER UNIT SC SCH ×4 (07:22→21:00)
[2016-10-15] MEDS: ASPIRIN 81 MG ENTERIC TAB PO SCH (08:42)
[2016-10-15] MEDS: AcetaZOLAMIDE 250 MG TAB PO SCH (08:42)
[2016-10-15] MEDS: FIDAXOMICIN 200 MG TAB (DIFICID) PO SCH ×2 (08:42→21:19)
[2016-10-15] MEDS: LACTOBACILLUS ACIDOPHILUS CAP (BACID) PO SCH ×3 (08:42→17:03)
[2016-10-15] MEDS: PANTOPRAZOLE 40MG TAB (PROTONIX) PO SCH (08:42)
--- NOTE | 2016-10-15 13:28 | IPN ---
DATE OF SERVICE: 10/15/2016 SUBJECTIVE: Patient was seen and examined at the bedside this morning in the intensive care unit (ICU). Patient continues to be on intravenous (IV) D5W. He is currently on nasal cannula. He continues to be hypernatremic at this time. REVIEW OF SYSTEMS: Patient denies any fevers, chills, rigors, headache, chest pain. He does report some shortness of breath. He continues to be on nasal cannula. He denies any nausea or vomiting. His appetite is not good at this time and he continues to have diarrhea and a rectal tube at this time. Patient also reports weakness and inability to get up from the bed. The rest of the review of symptoms are negative. OBJECTIVE: VITAL SIGNS: Temperature 96.9 degrees Fahrenheit, blood pressure 146/69, pulse 93, respiratory rate 22, saturating 99% on nasal cannula at 2 liters per minute. INTAKE AND OUTPUT (I AND O): He had an output recorded as 1.3 liters yesterday. Stool output was 305 mL yesterday. Urine output so far today since overnight is 295 mL. Weight on the bed scale is 88 kg today. PHYSICAL EXAMINATION: GENERAL: Patient is awake, alert, oriented times two, laying in bed, wearing nasal cannula, in no apparent distress at this time. HEAD AND NECK EXAMINATION: Pupils equally round and reactive to light. Mucous membranes are moist. Neck is supple. There is no jugular venous distention (JVD). CARDIOVASCULAR: S1, S2. Regular rate. No murmurs, rubs or gallops. RESPIRATORY: Decreased sounds at the bases and positive bilateral inspiratory crackles on deep inspiration. ABDOMEN: Soft, positive bowel sounds. No ascites. No organomegaly. He has a rectal tube with liquid stools in the bag and he has a Irving catheter as well. EXTREMITIES: No clubbing or cyanosis, but he has 2+ pitting edema of the bilateral lower extremities, and he has 1+ pitting edema of the bilateral upper extremities as well. CENTRAL NERVOUS SYSTEM: Patient is awake and alert, but he is slightly paranoid. Otherwise, he is able to move extremities. LABORATORY REVIEW: Complete blood count (CBC) showed WBC 6, hemoglobin 8.2, platelets 80. Basic metabolic panel (BMP) showed sodium 151, potassium 3.9, chloride 107, bicarbonate 38, BUN 35, creatinine 1.3, calcium 7.7, phosphorus 3.8, albumin 1.9. CURRENT MEDICATIONS: Patient's medications were all reviewed by me. He continues to be on IV D5W at 50 mL an hour. He is also on acetazolamide 250 mg by mouth four times a day. There are no other changes in the medications today as compared with yesterday. ASSESSMENT: An 85-year-old male with past medical history of diastolic congestive heart failure (CHF), severe pulmonary hypertension, obstructive sleep apnea. He was initially admitted to intensive care unit (ICU) with septic shock secondary to Clostridium (C) difficile colitis, hypercapnic respiratory failure requiring bilevel positive airway pressure (BiPAP), and acute oliguric renal failure. Nephrology service following the patient for management of acute renal failure, fluid overload and electrolyte abnormalities. PLAN: 1. Acute renal failure superimposed on chronic kidney disease. Patient's renal function is significantly better. His creatinine is 1.3 now. His 24-hour output is 1.3 liters. Patient was given a dose of Lasix 60 mg IV yesterday. His creatinine slightly bumped from 1.2 to 1.3. I am going to hold all diuretics today. 2. Recurrent hypernatremia. Patient has very little oral intake and he continues to have loose stools secondary to Clostridium (C) difficile. He has been started on IV D5W at 50 mL an hour. I am going to continue the current rate of IV fluids and stop the oral diuretics. 3. Mixed respiratory acidosis and metabolic alkalosis. Patient was being diuresed with acetazolamide 250 mg by mouth every 6 hours. Because of the persistent hypernatremia, I am going to hold the acetazolamide for the next 24 hours. Respiratory management is as per pulmonary team. 4. Recurrent anemia. Patient has anemia secondary to gastrointestinal (GI) blood loss, most likely secondary to colitis. His hemoglobin is stable at this time. Continue to transfuse as needed for hemoglobin 7 or below. Patient will need a dose of Lasix 40 mg IV with each unit of packed red blood cells. 5. Anasarca. The patient's anasarca is secondary to protein calorie malnutrition, low albumin, immobility, and fluid resuscitation secondary to septic shock. Patient is hypernatremic at this time. I would hold the diuretics. Once his hypernatremia improves, then patient will be given further dose of diuretics. Encourage out of bed by chair and encourage oral protein shakes at this time. 6. Clostridium (C) difficile colitis. Patient is currently on Dificid. The rest of the management is as per infectious disease. MTDD
--- NOTE | 2016-10-15 16:45 | IPN ---
DATE: 10/15/2016 Mr. Navarro seems to be doing better. He is being transferred to the progressive care unit (PCU). He still has a rectus tube as well as a Irving catheter. He has oxygen at two liters and a cough which is mostly nonproductive. LABORATORY DATA: White count is 6, hemoglobin 8.2, hematocrit 28.6, platelets 80 which are down from previous. Sodium 151, potassium 3.9, chloride 107, bicarbonate 38, BUN 35, creatinine 1.3, glucose 94, calcium 7.7, phosphorus 3.8, albumin 1.9. PHYSICAL EXAMINATION: VITAL SIGNS: Temperature is 96.8, pulse 79, respirations 25, blood pressure 137/62, oxygen saturation 100% on two liters nasal cannula. HEART: Normal S1, S2, distant. LUNGS: Diminished breath sounds at bases. ABDOMEN: Obese, soft, nontender. EXTREMITIES: +1 ankle edema. IMPRESSION: 1. Clostridium (C) difficile colitis with persistent diarrhea, on fidaxomicin since 10/01/2016, currently day number 10. He has missed about five days when he was very agitated. The patient still has a rectal tube and significant watery stool. 2. Acute kidney injury. This has resolved. The patient still has hypernatremia. 3. Haemophilus parainfluenzae. Status post one week of treatment with IV Rocephin which has made his C. difficile worse. PLAN: We will discuss with Dr. Driver, who has done his previous colonoscopy, the possibility of doing a stool transplant if diarrhea does not improve. Please consider discontinuing the Irving catheter and rectal tube once he is seen in the progressive care unit (PCU). Continue probiotics with meals. Continue fidaxomicin. We will consult Dr. Driver.
--- NOTE | 2016-10-15 17:35 | IPN ---
DATE: 10/15/2016 SUBJECTIVE: The patient is seen and examined in the room today. The patient is still having intermittent agitation and depressive comments. The patient shows slight improvement of oral intake; however, it is still not optimal. The patient continues to have dark stool in the rectal tube. No overnight events are reported. No abnormalities detected on telemetry. OBJECTIVE: VITAL SIGNS: Temperature is 97, pulse 92, respirations 19, blood pressure is 129/62. Pulse oximetry 100% with table top non-invasive positive pressure ventilation (NIPPV). GENERAL: Fatigued, intermittent agitation and depression. Alert and oriented times three. HEENT: Normocephalic, atraumatic. Extraocular muscles grossly intact. CARDIOVASCULAR: Irregularly irregular. Positive S1, S2. LUNGS: Decreased breath sounds. No significant wheezes, crackles. ABDOMEN: Soft, nontender, nondistended. Bowel sounds present. EXTREMITIES: 1 to 2+ pitting edema in the upper and lower extremities. No sign of cyanosis. LABORATORY DATA: WBC 6, hemoglobin 8.3, hematocrit 28.6, platelet count is 80. Sodium is 151, potassium 3.9, chloride 107, carbon dioxide 38, BUN 35, creatinine 1.32, GFR is greater than 60, fasting glucose is 94, calcium is 7.7, phosphorous 3.8, albumin is 11.9. ASSESSMENT AND PLAN: 1. Septic shock secondary to Clostridium (C) difficile colitis. The patient is continuing to receive oral antibiotic per infectious disease, Dr. Berger's recommendation. Shock has been resolved without recurrence. The patient's sepsis is improving. The patient continues to have loose stool. 2. Bright red blood per rectum. The patient had been receiving intermittent blood transfusion. Over the past 48 hours, hemoglobin and hematocrit have remained stable. The patient has been treated for active C difficile colitis. The patient has a history of diverticulosis and hemorrhoids. Currently, the patient suffers from thrombocytopenia. Multiple recent occurrences of patient's gastrointestinal bleeding. 3. Thrombocytopenia. 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 Heparin has been discontinued. Currently, we will monitor the patient's platelet count. 4. Acute renal failure secondary to septic shock, resolved. Nephrology was consulted. The patient originally had oliguria at the time of admission and now the patient has good urinary output and renal function has returned to normal range. 5. History of fluid overload secondary to fluid resuscitation required for septic shock. Nephrology has been assisting on the case. The patient has been receiving intravenous diuresis. Currently, the patient's peripheral edema continues improvement. The patient's breathing has also been improving. 6. Obstructive sleep apnea. The patient has been followed by the [facility] in the past. The patient was given concentrator at home and the patient is instructed to use 2 to 3 liters nasal cannula. However, during this admission, the patient was weaned off the bilevel positive airway pressure (BIPAP) and then the patient was placed on 5 liters nasal cannula one night and the patient woke up with altered mental status. ABG showed that the patient had severe CO2 retention. BIPAP had to be reinitiated. Near the time of discharge, this will create a difficult situation where we may have option to provide patient the BiPAP or CPAP he needs at night. Working with social insurance specialist. The patient is required to have outpatient sleep study before the [facility] physician can order proper equipment for the patient. 7. Poor oral intake. Continues gradual improvement. Oral intake is not optimal. The patient has a history of being on TPN previously. 8. Acute encephalopathy secondary to multiple organ failure, currently the patient has intermittent agitation and depression. However, the patient is alert and oriented times three. 9. Deep vein thrombosis (DVT) prophylaxis. Due to gastrointestinal bleed, the patient is thromboembolic compression stockings (TEDS), sequential compression device (SCD). The patient has a history of heparin induced thrombocytopenia (HIT). Heparin products have been avoided.
[2016-10-15] MEDS: LATANOPROST 0.005% OPHTH SOLN 2.5 ML OU SCH (21:00)
[2016-10-15] MEDS: ACETAMINOPHEN TAB 650MG DOSE (2X325MG) PO PRN (23:29)
[2016-10-16 04:00] VITALS: BP 128/62
[2016-10-16] MEDS: SODIUM CHLORIDE 0.9% INJ 10 ML SYR IV SCH ×2 (05:37→12:29)
[2016-10-16 05:40] LABS: BASO % 0.2 % (0.0-1.0); EOS # 0.1 K/mm3 (0.0-0.50); EOS % 0.8 % (0.0-3.0); LARGE UNSTAINED CELL # 0.1 K/mm3 (0.0-0.4); LYMPH # 0.6 K/mm3 (1.5-4.5); LYMPH % 8.2 % (24.0-44.0); MEAN CORPUSCULAR HEMOGLOBIN 28.3 pg (27.0-33.0); MEAN CORPUSCULAR HGB CONC 27.9 g/dl (32.0-36.5); MEAN CORPUSCULAR VOLUME 101.4 fl (80.0-96.0); MONO # 0.5 K/mm3 (0.0-0.8); MONO % 6.4 % (0.0-5.0); NEUTROPHILS # 5.9 K/mm3 (1.8-7.7); NEUTROPHILS % 82.5 % (36.0-66.0); RED CELL DISTRIBUTION WIDTH 16.1 % (11.5-14.5); WHITE BLOOD COUNT 7.2 K/mm3 (4.0-10.0)
[2016-10-16 05:56] LABS: PLATELET COUNT, AUTOMATED 75 k/mm3 (150-450)
[2016-10-16 05:57] LABS: ANION GAP 3 MEQ/L (8-16); BLOOD UREA NITROGEN 28 MG/DL (7-18); CALCIUM LEVEL 7.9 MG/DL (8.8-10.2); CARBON DIOXIDE LEVEL 37 MEQ/L (21-32); CHLORIDE LEVEL 109 MEQ/L (98-107); CREATININE FOR GFR 1.22 MG/DL (0.70-1.30); GLOMERULAR FILTRATION RATE > 60.0 (>35); GLUCOSE, FASTING 112 MG/DL (83-110); PHOSPHORUS LEVEL 4.5 MG/DL (2.5-4.9); POTASSIUM SERUM 3.8 MEQ/L (3.5-5.1); SODIUM LEVEL 149 MEQ/L (136-145)
[2016-10-16 07:45] VITALS: BP 120/67
[2016-10-16] MEDS: HumaLOG INSULIN (NovoLOG) PER UNIT SC SCH ×4 (09:27→20:59)
[2016-10-16] MEDS: FIDAXOMICIN 200 MG TAB (DIFICID) PO SCH ×2 (09:28→21:05)
[2016-10-16] MEDS: PANTOPRAZOLE 40MG TAB (PROTONIX) PO SCH (09:28)
[2016-10-16] MEDS: ASPIRIN 81 MG ENTERIC TAB PO SCH (09:28)
[2016-10-16] MEDS: LACTOBACILLUS ACIDOPHILUS CAP (BACID) PO SCH ×3 (09:28→17:34)
[2016-10-16 12:15] VITALS: BP 172/75
--- NOTE | 2016-10-16 13:09 | IPN ---
DATE OF SERVICE: 10/16/2016 SUBJECTIVE: The patient was seen and examined at the bedside today in the morning. He was downgraded from intensive care unit (ICU) yesterday. He is in the progressive care unit at this time. He is currently on the nasal cannula. He is noted wearing bilateral positive airway pressure (BiPAP) at this moment. His diuretics were held yesterday because of persistent hypernatremia. Sodium level is slightly better as compared with yesterday. REVIEW OF SYSTEMS: The patient denies any fevers, chills, rigors, headache, nausea, vomiting, or chest pain. He does report some shortness of breath, and he is wearing nasal cannula. He reports decreased appetite, and the patient reports significant weakness and inability to get out of the bed. The patient wants to get out of the bed, into the chair. The rest of review of systems is negative. OBJECTIVE: VITAL SIGNS: Temperature is 96 degrees Fahrenheit, blood pressure is 120/67, pulse is 71, respiratory rate of 18, saturating 94% on nasal cannula at 2 liters per minute. INTAKE AND OUTPUT: The patient's urine output is 925 mL yesterday, 550 mL so far today since overnight. Bed scale weight is 91.1 kg. PHYSICAL EXAMINATION: GENERAL: The patient is awake, alert, oriented times two, laying in the bed, wearing nasal cannula, no apparent distress at this time. HEAD AND NECK EXAMINATION: Pupils equally round and reactive to light. Mucous membranes are moist. Neck is supple. There is no jugular venous distention (JVD). CARDIOVASCULAR: S1, S2. Regular rate. No murmur, rub, and gallop. RESPIRATORY: Decreased breath sounds at the bases and positive bilateral inspiratory crackles on deep inspiration. ABDOMEN: Is soft, positive bowel sounds. No ascites. No organomegaly. He has a rectal tube with liquid stools in the bag, and he has a Irving catheter, as well, and urine is slightly blood-tinged. EXTREMITIES: No clubbing or cyanosis. He has 2+ pitting edema of the bilateral lower extremities and 1+ pitting edema of the bilateral upper extremities. CENTRAL NERVOUS SYSTEM ([employer]): The patient is awake and alert, but he is paranoid, slightly agitated, and he wants to come out of the bed. LABORATORY REVIEW: Complete blood count (CBC) showed a WBC 7.2, hemoglobin 8.5, platelets are 75. Basic metabolic panel (BMP) showed sodium 149, potassium 3.8, chloride 109, bicarbonate 37, BUN 28, creatinine 1.22, calcium is 7.9, phosphorus is 4.5. MICROBIOLOGY: Stool for occult blood is positive. Stool for Clostridium (C) difficile is negative. CURRENT MEDICATIONS: The patient's medications were all reviewed by me. He continues to be on intravenous (IV) D5W at 50 mL an hour. His diuretics were held yesterday because of persistent hypernatremia. There is no other change in the medications at this time. ASSESSMENT: An 85-year-old male with past medical history of diastolic congestive heart failure, severe pulmonary hypertension, obstructive sleep apnea. Initially, he was admitted to ICU with septic shock secondary to C. difficile colitis and hypercapnic respiratory failure requiring BiPAP. The patient also had acute oliguric renal failure during ICU stay. Renal function has significantly improved. Nephrology service following the patient for management of electrolyte abnormalities and acute renal failure. PLAN: 1. Acute renal failure superimposed on chronic kidney disease. The patient's renal function is significantly better. His creatinine is 1.2 today. His glomerular filtration rate (GFR) is more than 60. I have held the diuretics at this time. Continue to monitor 24-hour intake and output. 2. Hypernatremia. The patient's sodium is persistently 151 despite being on IV D5W. His acetazolamide and Lasix have been held now, although he has edema, but I would not diurese the patient until his serum sodium improves. His sodium is 149 today. I am hopeful that his sodium would come within the normal range by tomorrow morning. 3. Recurrent anemia and positive fecal occult blood test. The patient's hemoglobin is acceptable at this time. The patient is having blood in the stools, most likely because of recent colitis. Continue to transfuse as needed for hemoglobin 7 or below. 4. Clostridium difficile colitis. The patient is currently on Dificid. He continues to have liquid stools. I appreciate infectious disease input. They are recommending getting gastrointestinal (GI) on board for possible fecal transplant. Continue the current antibiotics as per infectious disease. 5. Anasarca. It is very difficult to diurese this patient at this time because of his protein-calorie malnutrition, low albumin level, hypernatremia, and metabolic alkalosis. I have held the diuretics since yesterday. I am waiting for his sodium level to improve; and if the patient needs further diuresis, he would need to get diuretics along with albumin. 6. Respiratory acidosis and metabolic alkalosis. The patient has CO2 retention requiring off-and-on BiPAP, and he has metabolic alkalosis, as well. His serum bicarbonate is staying between 36-37. Part of it might be secondary to intravascular volume depletion. Continue to hold the diuretic. Respiratory management as per pulmonary critical care team and primary medical team.. MTDD
--- NOTE | 2016-10-16 16:18 | IPN ---
DATE: 10/16/2016 The patient is seen and examined at the bedside. Chart has been reviewed. Per nursing, the patient is eating a lot more in the evening. Urine output has been adequate The patient has output via rectal tube The patient has been having some pink colored urine, most likely due to slight tugging on the Irving catheter by the patient. Temperature 97.7, pulse 83, respiratory rate 22, blood pressure 160/82, 96% on 2 liters nasal cannula. GENERAL: The patient is awake, alert, and oriented times two. No respiratory distress. No use of respiratory accessory muscles. Moist mucous membranes. No jugular venous distention (JVD). LUNGS: Decreased breath sounds with bilateral crackles at the bases. HEART: S1, S2. Irregular. ABDOMEN: Soft, nontender, nondistended. Irving catheter and rectal tube. Urine that blood tinged. EXTREMITIES: 2+ pitting edema in the lower extremities. Generalized edema in the upper extremities. LABORATORY DATA: Complete blood count (CBC) and metabolic panel have been reviewed. ASSESSMENT AND PLAN: This is an 85-year-old male, DO NOT RESUSCITATE, DO NOT INTUBATE, history of chronic kidney disease, sleep apnea on continuous positive airway pressure (CPAP), restrictive lung disease, history of pulmonary hypertension, diastolic heart failure, admitted for diarrhea and found to have Clostridium (C) difficile colitis with septic shock requiring vasopressor with levophed iv gtt for a few days. The patient has severe metabolic acidosis requiring BiPAP therapy with acute on chronic respiratory failure, as well as bicarbonate drip and table top BiPAP and has been on vasopressor, Levophed, and antibiotic. The patient then developed Klebsiella in the urine and Haemophilus influenzae in the sputum with chest x-ray showing bilateral infiltrates, atelectasis and calcified pleural plaques. The patient received stat IV ceftriaxone and had been taken off the Levophed drip. Urine output improved from oliguric to normal creatinine. The patient has been off the TPN and currently in progressive care unit (PCU) doing well and improving with oral intake. IMPRESSION/PLAN: 1. Chronic kidney disease, almost at baseline. Management per Dr. Pennington. 2. Clostridium (C) difficile colitis. The patient is still having liquid stools. Appreciate infectious disease input. Per Dr. Berger, monitor current stool output, if persistent or worsens into next week, may consider GI consult for fecal stool transplant. 3. Protein calorie malnutrition and low albumin. nutrition consult. Per RN, pt is eating more. 4. Lactic acidosis and metabolic alkalosis with CO2 retention previously requiring tabletop therapy and iv bicarbonate gtt. Diuretics are held. 5. Recurrent anemia and fecal occult blood test. No acute indication for blood transfusion. Transfuse below 7 hemoglobin. 6. Severe pulmonary hypertension PA pressure in 70's on previous echo, on supplemental oxygen. 7. Septic shock/multiorgan failure, resolved. required levophed iv gtt, bipap and iv bicarbonate gtt. secondary to cdiff. 8. ELBA not on home bipap with worsening respiratory failure requiring supplemental oxygen. monitor, keep o2sat 90-92%. Pulmonary signed off. monitor for worsening mental status changes, avoid sedatives, hypnotics, and obtain arterial blood gas if respiratory distress or lethargy occur. 9. Bilateral pleural effusions. defer to nephrology for fluid balance management in light of previous history of oliguric renal failure requiring vasopressors. 10. History of diastolic CHF, managed by nephrology. DNR/DNI. MTDD
--- NOTE | 2016-10-16 17:39 | IPN ---
DATE: 10/16/2016 Mr. Navarro is being transferred to the medical-surgical (med-surg) unit. He is doing fairly well. He has had about 200 mL of stool over the whole shift today. He is still paranoid and thinks everybody is here to get him. He would like to see a police aide according to his significant other. He has had no nausea, vomiting, abdominal pain. He still has a Irving catheter and a rectal tube. He has been afebrile. Temperature is 96, pulse 71, respirations 24, blood pressure 120/67, oxygen saturation 97% on 2 liters nasal cannula. Heart: Normal S1, S2, distant. Lungs are clear. No wheezes, rales or rhonchi. Abdomen is soft, nontender. No hepatosplenomegaly. Extremities: +1 ankle edema bilaterally. Rectal tube has black stools, watery, about 200 mL all day today. Yesterday he had about 700 mL of watery stool. LABORATORY DATA: White count 7.2, hemoglobin 8.5, hematocrit 30.4, platelets 75 which continues to drop. A week ago, his platelet count was 140. The patient had positive heparin-induced antibodies. Sodium 149, potassium 3.8, chloride 109, bicarbonate 37, BUN 28, creatinine 1.2, glucose 112, calcium 7.9, albumin 2, magnesium 4.5. Stool for Clostridium difficile (C diff) was negative. Hemoccult was positive. Methicillin-resistant Staphylococcus aureus (MRSA) screen is pending. IMPRESSION: 1. Clostridium difficile colitis, severe with septic shock. On fidaxomicin since 10/01/2016. The patient also is on probiotics three times a day. 2. History of parainfluenza bronchitis/pneumonia. Has received Rocephin for total of 1 week. That was discontinued on 10/09/2016. 3. Guaiac positive stools. 4. Acute renal failure has resolved. The patient still has a Irving catheter which needs to be removed. PLAN: Discontinue Irving catheter. The patient is at high risk of catheter-associated urinary tract infection (UTI). Discontinue rectal tube. Encourage ambulation. The case has been discussed with Dr. Camilo. We will continue with the fidaxomicin until 10/23/2016, which would be 2 weeks after last dose of broad-spectrum antibiotic. If the patient has worsening diarrhea, will consult gastroenterology for possibility of stool transplantation.
[2016-10-16 20:00] VITALS: BP 185/86
[2016-10-16] MEDS ORDERED: NYSTATIN 100,000 UNITS/GM TOPICAL PWD 15 GM TOP SCH (21:00)
[2016-10-16 21:20] VITALS: BP 160/78
[2016-10-16] MEDS: LATANOPROST 0.005% OPHTH SOLN 2.5 ML OU SCH (22:06)
[2016-10-16 22:54] VITALS: BP 162/90
[2016-10-16] MEDS: D5W 1,000 ML IV SCH (23:18)
--- NOTE | 2016-10-17 03:01 | IPNPDOC ---
Text Note Date of Service The patient was seen on 10/17/16. NOTE Called by the patient's nurse at approximately 2:35 am on 10/17/16 stating that the patient had . She states that the patient was last seen resting comfortably 1 hour ago. However, upon evaluation later the patient was found unresponsive, and pulseless. He is a DNR. The patient was on a non-telemetry monitored floor, thus the possible precipitating event is unknown. The hospitalist team was subsequently called for release of the body. Upon arrival at the bedside, patient noted to be pulseless, without any audible breath sounds, and without any pupillary or corneal reflexes. The patient was pronounced at 2:41 am. VS,Fishbone, I+O VS, Fishbone, I+O Laboratory Tests 10/16/16 05:22 Anion Gap 3 L, Red Blood Count 3.00 L, Mean Corpuscular Volume 101.4 H, Mean Corpuscular Hemoglobin 28.3, Mean Corpuscular Hemoglobin Concent 27.9 L, Red Cell Distribution Width 16.1 H, Neutrophils (%) (Auto) 82.5 H, Lymphocytes (%) ( Auto) 8.2 L, Monocytes (%) (Auto) 6.4 H, Eosinophils (%) (Auto) 0.8, Basophils ( %) (Auto) 0.2, Neutrophils # (Auto) 5.9, Lymphocytes # (Auto) 0.6 L, Monocytes # (Auto) 0.5, Eosinophils # (Auto) 0.1, Basophils # (Auto) 0.0 Vital Signs Date Time Temp Pulse Resp B/P Pulse Ox O2 Delivery O2 Flow Rate FiO2 10/17/16 01:09 Nasal Cannula 2.0 10/16/16 22:54 96.8 130 22 162/90 92 10/13/16 06:00 30 I&O- Last 24 Hours up to 6 AM 10/17/16 06:00 Intake Total 320 ml Output Total 700 ml Balance -380 ml WALTER UPTON MD Oct 17, 2016 03:01
--- NOTE | 2016-10-17 13:23 | DSES ---
DATE OF ADMISSION: 09/26/2016 DATE OF /DISCHARGE: 10/17/2016 TIME OF : 2:25 a.m. DISCHARGE DIAGNOSES: 1. Multiorgan failure. 2. Septic shock requiring intravenous (IV) Levophed. 3. Clostridium (C) difficile colitis. 4. Oliguric respiratory failure requiring bicarbonate therapy. 5. Acute hypercarbic respiratory failure secondary to mixed metabolic acidosis and respiratory alkalosis. 6. Clostridium (C) difficile colitis causing severe dehydration. 7. Acute on chronic oliguric renal failure. 8. Heparin-induced thrombocytopenia. 9. Restrictive lung disease. 10. Severe pulmonary hypertension. 11. Diastolic heart failure. 12. Obstructive sleep apnea with severe pulmonary hypertension requiring continuous positive airway pressure (CPAP). 13. Acute encephalopathy secondary to multiorgan failure, CO2 retention. 14. Severe anemia requiring 4 units of red blood cell transfusion. 15. Parainfluenza bronchitis and pneumonia, received Rocephin for 7 days. CONSULTANTS DURING THIS ADMISSION: Infectious disease specialist, Dr. Scarlett Berger. Nephrologists, Dr. Box and Dr. Pennington. Pulmonary critical care specialists, Dr. Baer and Dr. Law. HOSPITAL COURSE: This 85-year-old DO NOT RESUSCITATE/DO NOT INTUBATE patient with a history of chronic kidney disease, sleep apnea, severe pulmonary hypertension, diastolic heart failure, restrictive lung disease, CPAP need, presented to the hospital with persistent diarrhea. Was found to have C. difficile colitis and severe septic shock with oliguric renal failure requiring intensive care unit (ICU) admission. The patient had severe metabolic acidosis requiring intravenous bicarbonate drip, bilateral positive airway pressure (BiPAP) therapy, as well as vasopressor on Levophed. The patient was treated for C. difficile colitis with IV Flagyl 500 every 8 hours, vancomycin orally 125-250 every 6 hours. The patient's oliguric renal failure required pressors with persistent acute on chronic respiratory failure with chronic 2 liters of oxygen at home. The patient has had prior history of right ventricular systolic pressure of 71 on echocardiogram in July 2016 and not on CPAP for sleep apnea. He has a prior history of prostate cancer status post radiation and surgery and had atrial fibrillation (AFib) not on anticoagulant which was discontinued by the 's Administration ([place] Dr. Pennington and Dr. Box were consulted for management of the patient's bicarbonate drip, and vasopressor therapy was continued. It was found on microbiology to have C. difficile colitis confirmed. A sputum culture grew out Haemophilus parainfluenza, and Klebsiella was found in the urine culture. The patient was started on intravenous ceftriaxone and completed 7 days of IV ceftriaxone. He was persistently hypothermic, required a Keisha Hugger. Heart rate remained irregular throughout the entire hospital stay. He had episodes of severe respiratory distress but was continued on IV bicarbonate therapy due to severe hypotension. Chest x-ray showed bilateral effusions and infiltrates, probable cardiomegaly and calcified pleural plaques. The patient's family, healthcare proxy who was a brother, as well as the daughter, and the girlfriend were called for comfort measures only discussion. They agreed with DO NOT RESUSCITATE but wanted management to be continued as is. The patient had improvement in white count from admission of 34,000 to 7. The patient's oliguric renal failure improved with bicarbonate therapy to a creatinine of 1.32 from the peak creatinine of 4.2. The patient continued to develop respiratory distress, was DO NOT RESUSCITATE. He was found to be lethargic by nursing and unresponsive this morning at 2:25 a.m. on the medical-surgical floor with no pulse. The patient was found at 2:25. The patient was last seen sleeping comfortably at around 1:30. Upon evaluation by the nurse, he was pulseless and unresponsive. The patient was on a medical-surgical floor, and precipitating event is unknown but most likely due to CO2 retention and possible hypercapnic respiratory failure. The patient had no audible breath sounds on examination by on-call physician. No pupillary or corneal reflex and was pronounced at 2:41 a.m. [facility]
== END 2016-10-17 02:25 | disposition expired | DRG 853 ==
LOC: M ED 19:44 → M ED INP 09-26 00:04 → M ICU 09-26 01:14 → M PCU 10-15 16:20 → M MSPAV 10-16 22:40
PROVIDERS: ADMIT Internal Medicine; ATTEND General Practice
PROC: 02H Heart and Great Vessels, Insertion (ICD-10-PCS; principal; 2016-09-27)
PROC: 05H533Z Insertion of Infusion Device into Right Subclavian Vein, Percutaneous Approach (ICD-10-PCS; 2016-09-27)
PROC: 05HH33Z Insertion of Infusion Device into Left Hand Vein, Percutaneous Approach (ICD-10-PCS; 2016-09-29)
PROC: 30233N1 Transfusion of Nonautologous Red Blood Cells into Peripheral Vein, Percutaneous Approach (ICD-10-PCS; 2016-10-01)
DX: A41.9 Sepsis, unspecified organism (principal); R65.21 Severe sepsis with septic shock; N17.0 Acute kidney failure with tubular necrosis; J96.21 Acute and chronic respiratory failure with hypoxia; I50.33 Acute on chronic diastolic (congestive) heart failure; J12.2 Parainfluenza virus pneumonia; G93.41 Metabolic encephalopathy; A04.7 Enterocolitis due to Clostridium difficile; E87.4 Mixed disorder of acid-base balance; J90 Pleural effusion, not elsewhere classified; N39.0 Urinary tract infection, site not specified; D61.818 Other pancytopenia; E87.2 Acidosis; D62 Acute posthemorrhagic anemia; E46 Unspecified protein-calorie malnutrition; E87.0 Hyperosmolality and hypernatremia; J20.1 Acute bronchitis due to Hemophilus influenzae; D75.82 Heparin induced thrombocytopenia (HIT); G47.33 Obstructive sleep apnea (adult) (pediatric); I27.89 Other specified pulmonary heart diseases; Z66 Do not resuscitate; Z85.46 Personal history of malignant neoplasm of prostate; I48.91 Unspecified atrial fibrillation; K21.9 Gastro-esophageal reflux disease without esophagitis; I95.9 Hypotension, unspecified; Z91.041 Radiographic dye allergy status; K57.30 Diverticulosis of large intestine without perforation or abscess without bleeding; Z79.82 Long term (current) use of aspirin; Z79.899 Other long term (current) drug therapy; B96.1 Klebsiella pneumoniae [K. pneumoniae] as the cause of diseases classified elsewhere; N18.3 Chronic kidney disease, stage 3 (moderate)